=== PATIENT | female | born 1960 | race Caucasian/White ===

== ENCOUNTER 2019-10-04 08:20 | Emergency (ER) | payer BC, SELFPAY ==
[2019-10-04 08:21] VITALS: BP 155/91; PULSE 90; RESP 20; TEMP 36.6; O2SAT 98; BMI 24.3
--- NOTE | 2019-10-04 08:31 | CT_ITS ---
STUDY: CT ABDOMEN AND PELVIS WITHOUT CONTRAST REASON FOR EXAM: Female, 59 years old. Right-sided abdominal pain. RADIATION DOSAGE (If Supplied By Facility): CTDIvol = ( 7.58 ) mGy, DLP = ( 340.65 ) mGycm TECHNIQUE: Transaxial images were obtained from the dome of the diaphragm to the symphysis pubis without oral contrast, and without intravenous contrast. Sagittal and coronal images were reconstructed. Individualized dose optimization techniques were used for this CT. COMPARISON: None. FINDINGS: The visualized lung bases are unremarkable. The visualized portions of the heart are within normal limits. Normal liver. Normal gallbladder and extrahepatic biliary system. Normal spleen. Normal pancreas. Normal bilateral adrenal glands. There is a 1.6 cm 1.4 cm cyst in the superior anterior aspect of the right kidney. A 3 mm nonobstructive calculus is seen in the mid pole calyx. There is enlargement of the left kidney with left perinephric stranding. Mild degree of left hydronephrosis. Punctate nonobstructive calculus in the midpole calyx of the left kidney. I suspect a 3 mm calculus at the left ureterovesical junction entering the urinary bladder. Normal visualized stomach. Normal small intestine. Normal colon. The appendix is visualized and appears normal. There is diffuse atherosclerotic calcification of the abdominal aorta, without a demonstrated aneurysm. Normal inferior vena cava. There is borderline retroperitoneal lymphadenopathy with enlarged nodes no greater than 10mm in the short axis diameter. Normal urinary bladder. Calcified fibroid uterus. Normal abdominal wall. Disc space narrowing and disc degeneration at the L5-S1 level with anterior spondylosis. CT/Abdomen/Pelvis without Cont IMPRESSION: 3 mm calculus at the left ureterovesical junction as it enters the urinary bladder causing left hydronephrosis with left perinephric and periureteric stranding. Electronically Signed: Etienne Julio, at 9:34 EST , Service support ,
[2019-10-04 08:37] LABS: Mucous, Urine 0 SEEN /hpf (<or=2+)
--- NOTE | 2019-10-04 08:40 | ED.VIS.GEN ---
History of Present Illness Chief Complaint: Abd Pain Informant: Patient Onset: Today Context: Sudden Onset Timing: Continuous, Waxes and wanes Quality: Colicky left flank pain radiating anteriorly Location: Left flank Current Severity: Moderate Maximum Severity: Severe Worsened by: Nothing Relieved by: Nothing Associated Symptoms: Nausea and vomiting Narrative: Patient is a middle-aged woman with no significant past medical history who presents because she was awakened from sleep at 0200 with acute left flank pain. She states the pain radiates anteriorly. This is associate with nausea and vomiting. She cannot find a position of comfort. She has no other complaints. She denies fever, chills or night sweats. She denies cardiac or respiratory symptoms. She denies dysuria, frequency or hematuria. She does report urgency. She denies history of renal ureterolithiasis. She denies history of prior abdominal surgery. Prior similar symptoms: No Recent Illness/Hospitalization: No - Past Medical History (1) No significant past medical history Status: Acute Past Medical History - Allergies and Home Meds Allergies/Adverse Reactions: Allergies No Known Allergies Allergy (Verified 10/04/19 08:23) Primary Care Physician: Charanjit Matson DO [Primary Care Provider] - Prior records reviewed: No Past Medical History: None Surgical History: no surgical history Lives: Alone Smoking Status: Former smoker Alcohol: None Drugs: None Review of Systems General: Denies: Chills, Fever, Sweats Eyes: Denies: Visual changes - bilaterally, Diplopia ENT: Denies: Rhinorrhea, Sore throat Cardiovascular: Denies: Chest pain, Palpitations Respiratory: Denies: Dyspnea, Cough, Dyspnea on exertion Gastrointestinal: Reports: Abdominal pain, Nausea, Vomiting. Denies: Diarrhea, Constipation, Melena, Hematochezia, -, - Genitourinary: Denies: Dysuria, Hematuria, Frequency Musculoskeletal: Denies: Back pain, Extremity Pain Skin: Denies: Rash, Wounds Neurological: Denies: Headache, Weakness, Numbness Hematologic: Denies: Easy bruising, Easy bleeding Allergy: Denies: Uticaria, Swelling of the mouth, Swelling of the tongue Physical Exam Vital Signs/Narrative: Vital Signs Temp Pulse Resp BP Pulse Ox 10/04/19 08:21 98 F 90 20 H 155/91 H 98 Inital Vital Signs reviewed: Yes General: Well nourished, Well developed, Acute Distress Head: Normocephalic, Atraumatic Eyes: Perrl, EOMI. Negative for: Pale conjunctiva, Scleral icterus ENT: Moist mucous membranes, No rhinorrhea Neck: Supple, Nontender, No lymphadenopathy, No JVD Cardiovascular: Regular rate, Regular rhythm, No murmurs, Normal S1, Normal S2 Respiratory: No distress, CTA bilaterally, Chest nontender Abdomen: Soft, Nontender, Nondistended, Normal bowel sounds, No masses Back: Nontender, Normal Inspection, CVA tenderness - Left CVA tenderness Extremities: Nontender, No edema Skin: Normal color, No rash, No Trauma. Negative for: Cyanosis, Diaphoresis, Jaundice Neurological: Alert, Oriented x3, Cranial nerves II-XII grossly intact, Normal Strength, Normal Sensation Psychological: Normal affect, Normal Mood Diagnostic/Tx/Re-eval Impressions Abdomen/Pelvis CT 10/04/19 08:31 IMPRESSION: 3 mm calculus at the left ureterovesical junction as it enters the urinary bladder causing left hydronephrosis with left perinephric and periureteric stranding. Electronically Signed: Etienne Julio, at 9:34 EST , Service support , 10/04/19 08:31 Abdomen/Pelvis without Cont [CT] Stat Laboratory Results 10/04/19 10/04/19 10/04/19 08:30 08:50 08:50 WBC 11.9 H RBC 4.53 Hgb 14.3 Hct 42.2 MCV 93.2 MCH 31.6 MCHC 33.9 RDW Std Deviation 41.1 RDW Coeff of Connie 11.9 Plt Count 219 MPV 9.7 Immature Gran % (Auto) 0.700 Neut % (Auto) 83.0 H Lymph % (Auto) 11.2 L [place] % (Auto) 4.6 Eos % (Auto) 0.1 Baso % (Auto) 0.4 Absolute Neuts (auto) 9.9 H Absolute Lymphs (auto) 1.33 Nucleated RBC % 0 Sodium 140 Potassium 4.0 Chloride 108 H Carbon Dioxide 24.0 Anion Gap 8 BUN 29 H Creatinine 1.05 H Estim Creat Clear Calc 49.82 Est GFR (MDRD) Af Amer 69 Est GFR (MDRD) Non-Af 57 L BUN/Creatinine Ratio 27.6 H Glucose 147 H Calcium 9.4 Urine Color Yellow Urine Clarity Clear Urine pH 5.0 Ur Specific [place] 1.020 Urine Protein Negative Urine Glucose (UA) Normal Urine Ketones Negative Urine Occult Blood 25 H Urine Nitrite Negative Urine Bilirubin Negative Urine Urobilinogen Normal Ur Leukocyte Esterase 100 H Urine RBC 0-5 SEEN Urine WBC 0-5 SEEN Ur Squamous Epith Cells 0-5 SEEN Urine Bacteria RARE Urine Mucus 0 SEEN Laboratory results indicate an elevated white count which is probably a stress response to pain. There is no evidence of urinary tract infection. Electrolytes are unremarkable. CT reveals evidence of hydroureter and hydronephrosis secondary to a 3 mm left UVJ stone. - Medical Decision Making Abrupt onset of left flank pain rating anteriorly with nausea and vomiting and inability to find position of comfort concern patient has an obstructing ureteral stone. CT of the abdomen pelvis without contrast was ordered to determine size and location of calculus. IV was established at 250 cc/h. She received 4 mg of Zofran and 50 mg of Toradol for her nausea and pain. Basic metabolic panel was obtained to assess renal function. CBC to assess white count. UA to determine if there is evidence of infection which would alter disposition. ED Disposition - Plan for ED Patient: Disposition: Home or Assisted Living Diagnosis: Hydronephrosis with urinary obstruction due to ureteral calculus Instructions: KIDNEY STONE w/ Colic Prescriptions: Naproxen [Naprosyn] 500 mg PO BID #14 tab Prescription Printed Oxycodone HCl/Acetaminophen [Percocet 5/325] 1 tab PO Q6H PRN PRN 3 Days #12 tab PRN Reason: Pain Prescription Printed Referrals: Charanjit Matson DO [Primary Care Provider] - Lionel Knowles MD [STAFF PHYSICIAN] - 5-7 Days
[2019-10-04 08:42] LABS: Color, Urine Yellow (Yellow); Glucose, Dipstick Normal (Normal); Ketone-Dipstick Negative (Negative); Leukocyte Esterase-Dipstick 100 /ul (Negative); Nitrite-Dipstick Negative (Negative); Occult Blood-Urine 25 /ul (Negative); Protein-Dipstick Negative (Negative); Urine Bilirubin Dipstick Negative (Negative); Urine Clarity Clear (Clear); Urine Urobilinogen Normal (Normal)
[2019-10-04 08:48] LABS: Bacteria RARE /hpf (None Seen); Red Blood Cells-Urine 0-5 SEEN /hpf (0-5); Squamous Epithelial Cells - UA 0-5 SEEN /hpf (5-10); White Blood Cells 0-5 SEEN /hpf (0-5)
[2019-10-04] MEDS: 0.9% Normal Saline 1,000 ML 250 ML IV (08:48)
[2019-10-04] MEDS: Ketorolac 30 MG/ML Syringe 15 MG IV (08:48)
[2019-10-04] MEDS: Ondansetron 4 MG/2 ML Vial IV ×2 (08:49→10:06)
[2019-10-04 08:59] LABS: Absolute Lymphocyte Count 1.33 X10^3/uL (0.83-4.51); Absolute Neutrophil Count 9.9 X10^3/uL (2.0-7.7); Basophil# 0.05 X10^3/uL; Basophil% 0.4 % (0-1); Eosinophil# 0.01 X10^3/uL; Eosinophils% 0.1 % (0-5); Hematocrit 42.2 % (37-47); Hemoglobin 14.3 g/dL (12.0-15.0); Lymphocyte # 1.33 X10^3/ul (4.0); Lymphocyte % 11.2 % (19-41); Mean Corp Hgb Conc 33.9 g/dL (32-36); Mean Corpuscular Hgb 31.6 pg (27.0-32.0); Mean Corpuscular Volume 93.2 fL (81-99); Mean Platelet Vol. 9.7 fl (6.2-12.0); Monocyte# 0.55 X10^3/uL; Monocyte% 4.6 % (0-10); NRBC Flagged by Analyzer 0 % (0-5); Neutrophil # 9.88 X10^3/uL (2.7-7.7); Platelet Count 219 K/mm3 (150-450); RBC Distribution Width CV 11.9 % (11.6-14.6); RBC Distribution Width SD 41.1 fl (35.1-43.9); Red Blood Count 4.53 M/mm3 (4.2-5.4); White Blood Count 11.9 K/mm3 (4.4-11.0)
[2019-10-04 09:12] LABS: Anion Gap 8 (5-15); BUN 29 mg/dL (7-18); BUN/Creat Ratio 27.6 RATIO (10-20); Calcium,Total 9.4 mg/dL (8.5-10.1); Chloride 108 mmol/L (98-107); Creatinine, Serum 1.05 mg/dL (0.55-1.02); EST Glomerular Filtration Rate 57 mL/min (>60); Est Glom Filt Rate - Afr Amer 69 mL/min (>60); Estimated Creatinine Clearance 49.82 ml/min; Glucose 147 mg/dL (74-106); Sodium Level 140 mmol/L (136-145)
[2019-10-04 10:12] VITALS: BP 147/83; PULSE 67; RESP 14; O2SAT 97
== END 2019-10-04 10:14 | disposition home or self-care (01) ==
PROVIDERS: Emergency Provider Emergency Medicine; Family Provider Student in an Organized Health Care Education/Training Program; PCP Student in an Organized Health Care Education/Training Program
DX: N13.2 Hydronephrosis with renal and ureteral calculous obstruction (principal); Z87.891 Personal history of nicotine dependence
CPT/HCPCS: 74176; 80048; 81001; 85025; 96361; 96374; 96375; 96376; 99283; J7030; J2405

== ENCOUNTER → 2024-01-28 | Outpatient (CLI) | payer BC, SELFPAY ==
[2024-01-28 11:42] LABS: Mucous, Urine 0 SEEN /hpf (<or=2+)
[2024-01-28 16:15] LABS: Color, Urine Yellow (Yellow); Glucose, Dipstick Normal (Normal); Ketone-Dipstick 5 mg/dl (Negative); Leukocyte Esterase-Dipstick 25 /ul (Negative); Nitrite-Dipstick Negative (Negative); Occult Blood-Urine 25 /ul (Negative); Protein-Dipstick Negative (Negative); Specific Gravity, Urine 1.025 (1.002-1.030); Urine Bilirubin Dipstick Negative (Negative); Urine Clarity Clear (Clear); Urine Urobilinogen Normal (Normal)
[2024-01-28 16:25] LABS: ALB/GLOB Ratio 1.2 RATIO (0.9-2.4); AST(SGOT) 19 U/L (15-37); Alanine Aminotransfer ALT/SGPT 45 U/L (13-56); Alkaline Phosphatase 93 U/L (45-117); Anion Gap 4 (5-15); BUN 21 mg/dL (7-18); CPK Total, Creatine Kinase 74 U/L (26-192); Calcium,Total 8.9 mg/dL (8.5-10.1); Chloride 112 mmol/L (98-107); Creatinine, Serum 0.64 mg/dL (0.55-1.02); EST Glomerular Filtration Rate 100 mL/min (>60); Est Glom Filt Rate - Afr Amer 121 mL/min (>60); Globulin 3.2 g/dL (2.2-4.2); Glucose 98 mg/dL (74-106); Potassium 3.4 mmol/L (3.5-5.1); Protein, Total 7.2 g/dL (6.4-8.2); Sodium Level 141 mmol/L (136-145)
[2024-01-28 16:28] LABS: Bacteria RARE /hpf (None Seen); Red Blood Cells-Urine 0-5 SEEN /hpf (0-5)
[2024-01-28 16:29] LABS: Squamous Epithelial Cells - UA 0-5 SEEN /hpf (5-10); White Blood Cells 0-5 SEEN /hpf (0-5)
[2024-01-28 17:41] LABS: Absolute Lymphocyte Count 3.32 X10^3/uL (0.83-4.51); Absolute Neutrophil Count 3.5 X10^3/uL (2.0-7.7); Basophil# 0.03 X10^3/uL; Basophil% 0.4 % (0-1); Eosinophil# 0.07 X10^3/uL; Hematocrit 42.4 % (37-47); Hemoglobin 14.2 g/dL (12.0-15.0); Lymphocyte # 3.32 X10^3/ul (0.83-4.51); Lymphocyte % 45.5 % (19-41); Mean Corp Hgb Conc 33.5 g/dL (32-36); Mean Corpuscular Hgb 30.8 pg (27.0-32.0); Monocyte% 5.5 % (0-10); NRBC Flagged by Analyzer 0 % (0-5); Neutrophil # 3.45 X10^3/uL (2.7-7.7); Neutrophil % 47.3 % (47-70); Platelet Count 220 K/mm3 (150-450); RBC Distribution Width CV 12.9 % (11.6-14.6); RBC Distribution Width SD 43.4 fl (35.1-43.9); Red Blood Count 4.61 M/mm3 (4.2-5.4); White Blood Count 7.3 K/mm3 (4.4-11.0)
--- OUTSIDE RECORDS SUMMARY | 2024-01-28 18:52 | XMS RPT_ITS | CCD ---
Author Name Unknown Address [address] [place] [address] [id number] [place] [address] Organization [facility] Care Team Providers Care Instructor Dramatic Arts Name Role Phone Charanjit Fontenot DO Primary Care Provider [phone] CHARANJIT FONTENOT Primary Care Unavailable LETITIA KENNEDY Attending Unavailable CHARANJIT FONTENOT Primary Care Unavailable CHARANJIT FONTENOT Primary Care Unavailable CHARANJIT FONTENOT Primary Care Unavailable LETITIA KENNEDY Referring Unavailable CHARANJIT FONTENOT Primary Care Unavailable LETITIA KENNEDY Referring Unavailable CHARANJIT FONTENOT Referring Unavailable CHARANJIT FONTENOT Primary Care Unavailable CHARANJIT FONTENOT Primary Care Unavailable LETITIA KENNEDY Referring Unavailable Charanjit Fontenot DO Primary Care Provider [phone] Medications Completed/Discontinued Medications Medication Drug Class(es) Dates Sig (Normalized) Sig (Original) Biotin (12 sources) BIOTIN ORAL Take by mouth. 0 Active Problems Active Problems Problem Classification Problem Date Documented Date Episodic/Chronic Disorders of lipid metabolism (13 sources) Hypercholesterolemia; Translations: [Pure hypercholesterolemia, unspecified] Onset: 05-10-2013 05-10-2013 Chronic Immunizations and screening for infectious disease (2 sources) Needs influenza immunization; Translations: [Encounter for immunization] Episodic Other screening for suspected conditions (not mental disorders or infectious disease) (19 sources) Patient encounter status; Translations: [Encounter for screening mammogram for malignant neoplasm of breast] Onset: 12-19-2022 Episodic Other skin disorders (2 sources) Eruption; Translations: [Rash and other nonspecific skin eruption] Episodic Spondylosis; intervertebral disc disorders; other back problems (12 sources) Degeneration of lumbosacral intervertebral disc; Translations: [Other intervertebral disc degeneration, lumbosacral region] Onset: 08-26-2019 08-26-2019 Chronic Past or Other Problems Problem Classification Problem Date Documented Date Episodic/Chronic Diabetes mellitus without complication (11 sources) Hyperglycemia; Translations: [Hyperglycemia, unspecified] Onset: 12-19-2022 Episodic Other non-traumatic joint disorders (7 sources) Shoulder pain; Translations: [Pain in left shoulder] Onset: 05-06-2013 05-06-2013 Episodic Other non-traumatic joint disorders (5 sources) Pain in left shoulder; Translations: [Pain in joint, shoulder region] Onset: 05-06-2013 05-06-2013 Episodic Other skin disorders (1 source) Rash and other nonspecific skin eruption; Translations: [Rash] Onset: 07-08-2023 Episodic Residual codes; unclassified (12 sources) Tobacco user; Translations: [Tobacco use] Onset: 05-06-2013 05-06-2013 Episodic Residual codes; unclassified (13 sources) Postmenopausal state; Translations: [Asymptomatic menopausal state] Onset: 07-13-2013 07-13-2013 Episodic Results Test Name Value Interpretation Reference Range Facil ity Vital Signs Date Time Vital Sign Value Performing Clinician Faci lity 01-22-2024 08:37-0500 Body height 165.1 cm Lee Ledesma MD Work Phone: [facility] 01-22-2024 08:37-0500 Body temperature 98.91 [degF] Lee Ledesma MD Work Phone: [facility] 01-22-2024 08:37-0500 Body weight 64.59 kg Lee Ledesma MD Work Phone: [facility] 01-22-2024 08:37-0500 Diastolic blood pressure 82 mm[Hg] Lee Ledesma MD Work Phone: [facility] 01-22-2024 08:37-0500 Heart rate 85 /min Lee Ledesma MD Work Phone: [facility] 01-22-2024 08:37-0500 SaO2% (BldA) [Mass fraction] 97 % Lee Ledesma MD Work Phone: [facility] 01-22-2024 08:37-0500 Systolic blood pressure 124 mm[Hg] Lee Ledesma MD Work Phone: [facility] 07-08-2023 12:59-0400 Body temperature 98.1 [degF] Letitia Brent ENVELOPE FOLDING MACHINE ADJUSTER.LOGISTICS LEAD Work Phone: [facility] 07-08-2023 12:59-0400 Body weight 62.23 kg Letitia Brent ENVELOPE FOLDING MACHINE ADJUSTER.LOGISTICS LEAD Work Phone: [facility] 07-08-2023 12:59-0400 Diastolic blood pressure 78 mm[Hg] Letitia Brent ENVELOPE FOLDING MACHINE ADJUSTER.LOGISTICS LEAD Work Phone: [facility] 07-08-2023 12:59-0400 Heart rate 64 /min Letitia Brent ENVELOPE FOLDING MACHINE ADJUSTER.LOGISTICS LEAD Work Phone: [facility] 07-08-2023 12:59-0400 Respiratory rate 16 /min Letitia Brent ENVELOPE FOLDING MACHINE ADJUSTER.LOGISTICS LEAD Work Phone: [facility] 07-08-2023 12:59-0400 SaO2% (BldA) [Mass fraction] 96 % Letitia Brent ENVELOPE FOLDING MACHINE ADJUSTER.LOGISTICS LEAD Work Phone: [facility] 07-08-2023 12:59-0400 Systolic blood pressure 122 mm[Hg] Letitia Brent ENVELOPE FOLDING MACHINE ADJUSTER.LOGISTICS LEAD Work Phone: [facility] 03-04-2023 09:44-0400 Body temperature 98.4 [degF] Christianne Callow ENVELOPE FOLDING MACHINE ADJUSTER.LOGISTICS LEAD Work Phone: [facility] 03-04-2023 09:44-0400 Body weight 62.87 kg Christianne Callow ENVELOPE FOLDING MACHINE ADJUSTER.LOGISTICS LEAD Work Phone: [facility] 03-04-2023 09:44-0400 Diastolic blood pressure 70 mm[Hg] Christianne Callow ENVELOPE FOLDING MACHINE ADJUSTER.LOGISTICS LEAD Work Phone: [facility] 03-04-2023 09:44-0400 Heart rate 70 /min Christianne Callow ENVELOPE FOLDING MACHINE ADJUSTER.LOGISTICS LEAD Work Phone: [facility] 03-04-2023 09:44-0400 Respiratory rate 21 /min Christianne Callow ENVELOPE FOLDING MACHINE ADJUSTER.LOGISTICS LEAD Work Phone: [facility] 03-04-2023 09:44-0400 SaO2% (BldA) [Mass fraction] 98 % Christianne Connors ENVELOPE FOLDING MACHINE ADJUSTER.LOGISTICS LEAD Work Phone: [facility] 03-04-2023 09:44-0400 Systolic blood pressure 98 mm[Hg] Christianne Connors ENVELOPE FOLDING MACHINE ADJUSTER.LOGISTICS LEAD Work Phone: [facility] 12-15-2022 14:36-0500 Body temperature 97 [degF] Charanjit Fontenot DO Work Phone: [facility] 12-15-2022 14:36-0500 Body weight 61.69 kg Charanjit Fontenot DO Work Phone: [facility] 12-15-2022 14:36-0500 Diastolic blood pressure 60 mm[Hg] Charanjit Fontenot DO Work Phone: [facility] 12-15-2022 14:36-0500 Heart rate 76 /min Charanjit Fontenot DO Work Phone: [facility] 12-15-2022 14:36-0500 Respiratory rate 16 /min Charanjit Fontenot DO Work Phone: [facility] 12-15-2022 14:36-0500 Systolic blood pressure 110 mm[Hg] Charanjit Fontenot DO Work Phone: [facility] Encounters Encounter Date Encounter Type Care Provider Facility Start: 01-22-2024 End: 01-22-2024 Patient encounter procedure Lee Ledesma MD Work Phone: General Surgery Procedures Date Procedure Procedure Detail Performing Clinician Start: 01-05-2024 Us breast uni real t augusto with image limited Letitia Kennedy APRN.LOGISTICS LEAD Work Phone: Start: 01-05-2024 Digital breast tomosynthesis unilateral Letitia Kennedy APRN.LOGISTICS LEAD Work Phone: Start: 12-18-2022 Lipid 1996 panel - S maritza or Plasma Us 1 Work Phone: Start: 12-15-2022 INFLUENZA VACCINE QUADRIVALENT 6 MO - 64 YRS IM Charanjit Fontenot DO Work Phone: Start: 05-01-2021 Mammography Charanjit najera DO Work Phone: Start: 12-14-2020 Colonoscopy Charanjit najera DO Work Phone: Start: 08-17-2018 Adult depression scr eening assessment Charanjit Fontenot DO Work Phone: Plan of Treatment Date Care Activity Detail Author Start: 12-18-2027 Lipid panel Lipid Screening [facility] Start: 12-18-2027 LIPID SCREEN LIPID SCREEN [facility] Start: 09-30-2026 Urine microalbumin profile [facility] Start: 12-18-2025 DIABETES SCREEN DIABETES SCREEN [facility] Start: 12-18-2025 Diabetes Screening Diabetes Screening [facility] Start: 12-14-2025 Colonoscopy COLONOSCOPY [facility] Start: 12-14-2025 COLORECTAL CANCER SCREENING COLORECTAL CANCER SCREENING [facility] Start: 12-14-2025 Screening for malignant neoplasm of colon [facility] Start: 12-08-2024 Screening for malignant neoplasm of breast Mammogram Screening [facility] Start: 08-27-2024 LIPID SCREEN LIPID SCREEN [facility] Start: 07-24-2024 End: 02-22-2025 MG Breast - right Diagnostic for implant [facility] RIGHT Radiology Routine Abnormal finding on breast imaging Expected: 07/24/2024, Expires: 02/22/2025 [facility] Work Phone: Immunizations Immunization Date Immunization Notes Care Provider Cari eldridge 03-02-2023 zoster vaccine recombinant Mi Nurse Work Phone: [facility] Work Phone: 12-15-2022 pneumococcal Conjuga te, unspecified formulation Charanjit Fontenot [employer] Work Phone: [facility] Work Phone: 12-15-2022 influenza, injectabl e, quadrivalent, contains preservative Charanjit Fontenot [employer] Work Phone: [facility] Work Phone: 12-15-2022 pneumococcal (PCV20) vaccine, 20 valent (PREVNAR 20) Charanjit Fontenot DO Work Phone: [facility] Work Phone: 12-15-2022 zoster vaccine recombinant Charanjit Fontenot DO Work Phone: [facility] Work Phone: 12-15-2022 influenza virus vaccine, unspecified formulation 1 Work Phone: [facility] 08-26-2019 influenza, injectabl e, quadrivalent, contains preservative Charanjit Fontenot DO Work Phone: [facility] 08-17-2018 influenza, injectabl e, quadrivalent, contains preservative Charanjit Fontenot DO Work Phone: [facility] 09-30-2016 tetanus toxoid, redu david diphtheria toxoid, and acellular pertussis vaccine, adsorbed Charanjit Fontenot DO Work Phone: [facility] Payers Date Payer Category Payer Unknown [employer] PPO OOS [id number] 2021-Present [phone] [address] [place] [id number] PPO [id number] 2021 Unknown [employer] PPO OOS [id number] 2021-Present [phone] [address] [place] [address] PPO [id number] 2021 Unknown [id number] Social History Date Type Detail Facility Start: 01-14-2016 End: 12-15-2022 Tobacco smoking status NHIS Smokes tobacco daily [facility] Work Phone: End: 2014 History of tobacco use Cigarette Smoker [facility] Work Phone: Start: 01-14-2016 End: 07-08-2023 Cigarettes smoked current (pack per day) - Reported 1 [facility] Start: 01-14-2016 End: 12-15-2022 Tobacco use and exposure Smokeless tobacco non-user [facility] Work Phone: Start: 12-14-2020 End: 01-22-2024 Alcohol intake Current drinker of alcohol (finding) [facility] Start: 09-07-2019 End: 12-15-2022 Tobacco Comment -4 years for quit so 38 pack years [facility] Start: 1960 Sex Assigned At Female [facility] Start: 12-11-2022 History SDOH Alcohol Frequency 1 [facility] Start: 12-11-2022 History SDOH Alcohol Std Drinks 0 [facility] Start: 12-11-2022 History SDOH Social Connections Phone 2 [facility] Start: 12-11-2022 History SDOH Social Connections Get Together 98 [facility] Start: 12-11-2022 History SDOH Social Connections Living 5 [facility] Start: 12-11-2022 History SDOH Physical Activity MPS 3 [facility] Start: 12-11-2022 End: 07-08-2023 Social connection and isolation panel [facility] How often do you get together with friends or relatives? Patient refused [facility] Do you belong to any clubs or organizations such as tenriism groups, unions, fraternal or athletic groups, or school groups? Yes [facility] Are you now , , , , never or living with a partner? [facility] How often to you hav e a drink containing alcohol? Never [facility] Do you feel stress - tense, restless, nervous, or anxious, or unable to sleep at night because your mind is troubled all the time - these days [OSQ] Only a little [facility] The food that (I/we) bought just didn't last, and (I/we) didn't have money to get more. Never true [facility] In the past 12 month s, was there a time when you were not able to pay the mortgage or rent on time? No [facility] Start: 08-30-2019 Gender identity Identifies as female gender (finding) [facility] Start: 08-26-2019 Sexual orientation Heterosexual (finding) [facility] Work Phone: Clinical Notes 12-15-2022 to 01-24-2024 Lee Ledesma MD - 01/24/2024 6:34 AM Abbie Mora LPN - 01/22/2024 8:37 AM Anamika Mane RDMS - 01/05/2024 2:30 PM Neha Noonan, Mammo Tech - 01/05/2024 2:00 PM EST Note Date & Type Note Facility 01-24-2024 History of Present illness Narrative HISTORY AND PHYSICAL - BREAST COMPLAINT Polo Ricciderick 1960 REFERRING PHYSICIAN: Letitia Kennedy CHIEF COMPLAINT: abnormal right breast imaging HPI: The patient is a 64 year old female with a complaint of an abnormal mammogram. The patient had a mammogram screening mammogram on December 08, 2023 with a diagnostic right mammogram and ultrasound on January 05, 2024 which demonstrated : IMPRESSION: SUSPICIOUS FINDING - BIOPSY SHOULD BE CONSIDERED The 1 cm irregular equal density focal asymmetry in the right breast is suspicious of malignancy. An ultrasound guided biopsy is recommended. LIMITED ULTRASOUND OF RIGHT BREAST: 01/05/2024 RESULT: Comparison is made to exams dated: 12/08/2023 mammogram and 05/01/2021 mammogram - [facility]. Color flow and real-time ultrasound of the right breast 10 o'clock region were performed. Malone scale images of the real-time examination were reviewed. There is a 1.1 cm x 0.6 cm x 1 cm oval mass with a circumscribed margin in the right breast at 10 o'clock posterior depth. This oval mass is hypoechoic. This correlates with mammography findings. IMPRESSION: SUSPICIOUS FINDING - BIOPSY SHOULD BE CONSIDERED The 1.1 cm x 0.6 cm x 1 cm oval mass in the right breast resembles a lymph node and is suspicious of malignancy. An ultrasound guided biopsy is recommended. Mariah Hill M.D. The patient denies a history of breast masses. She does not perform a self breast exam routinely. She notes no skin changes. She denies nipple discharge. She notes no axillary masses. She notes no family history of breast problems. She notes no significant breast trauma or breast difficulties in the past. The patient questions why she needs a biopsy if this is a lymph node The patient is being seen by me today at the request of Letitia Kennedy for my opinion and advice regarding abnormal right breast imaging. PAST MEDICAL HISTORY Diagnosis Date Elevated LFTs 12/19/2022 Hearing loss bilateral hearing aids Hyperglycemia 12/19/2022 Hyperlipidemia 12/2015 Kidney stones Low grade squamous intraepithelial lesion (LGSIL) on Papanicolaou smear of cervix 06/2013 Post-menopausal age 43ish Spinal stenosis Tobacco abuse quit 01/19/14 PAST SURGICAL HISTORY Procedure Laterality Date COLONOSCOPY SCRN NOT HIGH RISK 12/14/2020 D&C (INCOMPLETE AB), ANY TRIMESTER 11/30/1981 miscarriage EGD 12/14/2020 LAPAROSCOPY DIAGNOSTIC 11/30/1984 LEEP PROCEDURE (PHOTOGRAPHIC EDITOR DEPT)_*FL 11/30/2012 Current Outpatient Medications Medication Sig Dispense Refill MULTIVITAMIN ORAL Take by mouth. BIOTIN ORAL Take by mouth. triamcinolone acetonide (KENALOG) 0.5 % cream Apply 1 application to affected area twice daily. For rash/itching. Apply sparingly. Avoid face/skin fold. 45 g 1 varenicline (CHANTIX) 0.5 mg (11)- 1 mg (42) tablet Take 1 tablet (0.5 mg) by mouth once daily for 3 days, then 1 tablet (0.5 mg) twice daily for 4 days, then one tablet (1 mg) twice daily. (Patient not taking: Reported on 11/19/2020) 53 tablet 0 No current facility-administered medications for this visit. ALLERGIES: Patient has no known allergies. PERSONAL HISTORY: Social History Tobacco Use Smoking status: Every Day Packs/day: 1.00 Years: 42.00 Additional pack years: 0.00 Total pack years: 42.00 Types: Cigarettes Last attempt to quit: 2014 Years since quittin.0 Smokeless tobacco: Never Tobacco comments: -4 years for quit so 38 pack years Substance Use Topics Alcohol use: Yes Alcohol/week: 0.0 - 1.3 standard drinks of alcohol Comment: occasionally Drug use: No FAMILY HISTORY: FAMILY HISTORY Problem Relation Age of Onset Hypertension Mother other (dementia) Mother other (MVA) Father Diabetes Brother Hypertension Sister Diabetes Sister Cancer Sister Diabetes Paternal Grandmother Breast Cancer Sister Hypertension Sister REVIEW OF SYMPTOMS: The review of systems data was entered by the nurse and reviewed by me Nursing Notes: Abbie Castelan LPN 01/22/2024 8:39 AM Signed REVIEW OF SYSTEMS: General: The patient denies fatigue, denies weight loss, denies weight gain, denies feeling hot, and denies feelings of cold. Eyes: The patient denies glaucoma, denies eye injury/surgery, wears glasses or contacts. Ear/Nose/Throat: The patient denies allergies, denies hayfever, denies ear infections, and denies bloody noses. Cardiovascular: The patient denies chest pain, denies heart disease, denies high blood pressure,denies cardiac stent, denies prior heart attack, denies irregular heart beat, denies high cholesterol, denies poor circulation, denies heart failure, other cardiac issues, denies claudication, denies cold feet, denies peripheral arterial stent. Respiratory: The patient denies tuberculosis, denies pneumonia, denies frequent cough, denies pulmonary embolism, denies shortness of breath, and denies coughing up blood. Gastrointestinal: The patient denies difficulty swallowing, denies acid reflux, NOTES ulcers, denies vomiting, denies jaundice/hepatitis, denies gallbladder problems, denies black or tarry stools, denies hemorrhoids, denies bleeding from rectum, denies diverticulitis, denies constipation, denies diarrhea, denies loss of stool control, and denies hernias. Kidney/Bladder: The patient NOTES kidney stones, denies urine infections, and denies bloody urine. Skin: The patient denies a history of skin cancer, denies bleeding/changing moles, and NOTES a history of skin rash. Neurologic: The patient denies a history of epilepsy/convulsions, denies headaches, denies head/spinal injuries, and denies stroke/TIA. Psychiatric: The patient denies psychiatric medications, denies depression, and denies voices, denies substance abuse. Endocrine: The patient denies thyroid disorders, denies diabetes, and denies hormonal problems. Hematologic: The patient denies a history of bruising, denies bleeding, and denies anemia, denies blood clots. Infections: The patient denies a history of measles and mumps, denies rheumatic fever, and denies sexually transmitted diseases. Musculoskeletal: The patient denies back pain/injury, denies back problems, denies sciatica, denies knee/foot trouble, denies arthritis, or denies gout. When was patient's last Mammogram screening? 2023 Last Colonoscopy: 2020 Abbie Castelan LPN PHYSICAL EXAMINATION: General: The patient is 64 year old female, well nourished, well hydrated in no acute distress. The patient is oriented to time, place, and person. VITALS: Blood pressure 124/82, pulse 85, temperature 37.2 C (98.9 F), height 165.1 cm (5' 5 ), weight 64.6 kg (142 lb 6.4 oz), SpO2 97%. Body mass index is 23.7 kg/m . HEENT: Normal cephalic, ataumatic, pupils are equally round, sclera are anicteric, mucous membranes are moist, oropharynx is clear. Neck has no masses, asymmetry or lymphadenopathy. Thyroid is unremarkable. Respiratory: Clear to auscultation and percussion. Normal respiratory excursion and pattern. Cardiac: Examination is regular rate and rhythm. Abdominal exam: Soft, nontender, with no palpable masses. No hepatosplenomegaly. No palpable hernias. Rectal exam: exam deferred Extremities: no clubbing, cyanosis or edema. No adenopathy. Breast: Visual inspection reveals no retractions, nipple inversion, or skin changes. Palpation of the right breast reveals no dominant or suspicious masses, but multiple benign-feeling nodules. Palpation of the left breast reveals no dominant or suspicious masses, but multiple benign-feeling nodules. Axillary exam demonstrates no suspicious masses in either the left or right axilla. There is no nipple discharge expressed from either the left or right breast. LABORATORY VALUES: As Noted RADIOLOGIC STUDIES: As Noted The site was identified. I agree that it appears to be a benign lymph node Assessment IMPRESSION: abnormal right breast imaging - likely lymph node PLAN: We discussed the possibilities of the origin of her abnormal mammogram. We discussed the fact that only biopsy can definitely exclude malignancy. We discussed that options ranged from observation, to fine needle aspiration performed in the office to surgical biopsy in the operative suite. I recommended 6 month follow up as she did not want biopsy and I agreed it was reasonable to watch the site. The patient was reminded about the importance of self-breast exam. She was instructed on how to perform a complete self-breast exam. The patient was instructed to return immediately if she notes any change in her breast mass or if she has any concerns or notes other problems. Diagnoses: (R92.8) Abnormal finding on breast imaging (primary encounter diagnosis) My findings have been communicated to Letitia Kennedy via shared medical record. This note will be forwarded to Charanjit Fontenot DO. Return to Clinic: The patient is instructed to follow-up with me in 6 months, you should obtain a mammogram and ultrasound prior to this follow up visit. Lee Ledesma MD documented in this encounter [facility] 01-22-2024 Nurse Note REVIEW OF SYSTEMS: General: The patient denies fatigue, denies weight loss, denies weight gain, denies feeling hot, and denies feelings of cold. Eyes: The patient denies glaucoma, denies eye injury/surgery, wears glasses or contacts. Ear/Nose/Throat: The patient denies allergies, denies hayfever, denies ear infections, and denies bloody noses. Cardiovascular: The patient denies chest pain, denies heart disease, denies high blood pressure,denies cardiac stent, denies prior heart attack, denies irregular heart beat, denies high cholesterol, denies poor circulation, denies heart failure, other cardiac issues, denies claudication, denies cold feet, denies peripheral arterial stent. Respiratory: The patient denies tuberculosis, denies pneumonia, denies frequent cough, denies pulmonary embolism, denies shortness of breath, and denies coughing up blood. Gastrointestinal: The patient denies difficulty swallowing, denies acid reflux, NOTES ulcers, denies vomiting, denies jaundice/hepatitis, denies gallbladder problems, denies black or tarry stools, denies hemorrhoids, denies bleeding from rectum, denies diverticulitis, denies constipation, denies diarrhea, denies loss of stool control, and denies hernias. Kidney/Bladder: The patient NOTES kidney stones, denies urine infections, and denies bloody urine. Skin: The patient denies a history of skin cancer, denies bleeding/changing moles, and NOTES a history of skin rash. Neurologic: The patient denies a history of epilepsy/convulsions, denies headaches, denies head/spinal injuries, and denies stroke/TIA. Psychiatric: The patient denies psychiatric medications, denies depression, and denies voices, denies substance abuse. Endocrine: The patient denies thyroid disorders, denies diabetes, and denies hormonal problems. Hematologic: The patient denies a history of bruising, denies bleeding, and denies anemia, denies blood clots. Infections: The patient denies a history of measles and mumps, denies rheumatic fever, and denies sexually transmitted diseases. Musculoskeletal: The patient denies back pain/injury, denies back problems, denies sciatica, denies knee/foot trouble, denies arthritis, or denies gout. When was patient's last Mammogram screening? 2023 Last Colonoscopy: 2020 Abbie Castelan LPN documented in this encounter [facility] 01-05-2024 Note HNO ID: [id number] Author: ANAMIKA SHAH RDMS Service: ? Author Type: Charger Type: Progress Notes Filed: 01/05/2024 16:25 Note Text: Radiology Service Progress Note PATIENT NAME: Polo Oquendo DATE OF SERVICE: January 05, 2024 TIME: 4:25 PM PATIENT IDENTITY VERIFICATION COMPLETED USING TWO (2) IDENTIFIERS: Name and Date of confirmed by patient verbally. FALL SCREENING: Has the patient had 2 falls in the last year or 1 fall with injury or currently using an Ambulatory Assistive Device (Walker, Cane, Wheelchair, Crutches, etc.)? No PATIENT GENDER DATA: Female. status: : No status: NO. PATIENT RELEVANT IMPLANT DATA REVIEWED: Not Applicable PATIENT PRESENTS WITH AN IMPLANTABLE OR ATTACHED ACCOUNTING GENERALIST: No RADIOLOGY DEPARTMENT: Ultrasound PERIPHERAL IV DATA: Not applicable SIGNED BY: Anamika Shah RDMS January 05, 2024 4:25 PM [facility] 01-05-2024 Note HNO ID: [id number] Author: NEHA FINNEGAN Mammo Tech Service: ? Author Type: Charger Type: Progress Notes Filed: 01/05/2024 14:00 Note Text: Radiology Service Progress Note PATIENT NAME: Polo Oquendo DATE OF SERVICE: January 05, 2024 TIME: 1:38 PM PATIENT IDENTITY VERIFICATION COMPLETED USING TWO (2) IDENTIFIERS: Name and Date of confirmed by patient verbally. FALL SCREENING: Has the patient had 2 falls in the last year or 1 fall with injury or currently using an Ambulatory Assistive Device (Walker, Cane, Wheelchair, Crutches, etc.)? No PATIENT GENDER DATA: Female. status: : No status: NO. PATIENT RELEVANT IMPLANT DATA REVIEWED: Not Applicable PATIENT PRESENTS WITH AN IMPLANTABLE OR ATTACHED ACCOUNTING GENERALIST: No RADIOLOGY DEPARTMENT: Mammography PERIPHERAL IV DATA: Not applicable SIGNED BY: Neha Finnegan [employer] January 05, 2024 1:38 PM [facility] 01-05-2024 History of Present illness Narrative Radiology Service Progress Note PATIENT NAME: Polo Oquendo DATE OF SERVICE: January 05, 2024 TIME: 4:25 PM PATIENT IDENTITY VERIFICATION COMPLETED USING TWO (2) IDENTIFIERS: Name and Date of confirmed by patient verbally. FALL SCREENING: Has the patient had 2 falls in the last year or 1 fall with injury or currently using an Ambulatory Assistive Device (Walker, Cane, Wheelchair, Crutches, etc.)? No PATIENT GENDER DATA: Female. status: : No status: NO. PATIENT RELEVANT IMPLANT DATA REVIEWED: Not Applicable PATIENT PRESENTS WITH AN IMPLANTABLE OR ATTACHED ACCOUNTING GENERALIST: No RADIOLOGY DEPARTMENT: Ultrasound PERIPHERAL IV DATA: Not applicable SIGNED BY: Anamika Shah RDMS January 05, 2024 4:25 PM documented in this encounter [facility] 01-05-2024 History of Present illness Narrative Radiology Service Progress Note PATIENT NAME: Polo Oquendo DATE OF SERVICE: January 05, 2024 TIME: 1:38 PM PATIENT IDENTITY VERIFICATION COMPLETED USING TWO (2) IDENTIFIERS: Name and Date of confirmed by patient verbally. FALL SCREENING: Has the patient had 2 falls in the last year or 1 fall with injury or currently using an Ambulatory Assistive Device (Walker, Cane, Wheelchair, Crutches, etc.)? No PATIENT GENDER DATA: Female. status: : No status: NO. PATIENT RELEVANT IMPLANT DATA REVIEWED: Not Applicable PATIENT PRESENTS WITH AN IMPLANTABLE OR ATTACHED ACCOUNTING GENERALIST: No RADIOLOGY DEPARTMENT: Mammography PERIPHERAL IV DATA: Not applicable SIGNED BY: Harper Tysono Selma January 05, 2024 1:38 PM documented in this encounter [facility] 12-08-2023 Note HNO ID: [id number] Author: SHELIA THOMAS RT(R) Service: ? Author Type: Technologist Type: Progress Notes Filed: 12/08/2023 14:28 Note Text: Radiology Service Progress Note PATIENT NAME: Polo Oquendo DATE OF SERVICE: December 08, 2023 TIME: 2:27 PM PATIENT IDENTITY VERIFICATION COMPLETED USING TWO (2) IDENTIFIERS: Name and Date of confirmed by patient verbally. FALL SCREENING: Has the patient had 2 falls in the last year or 1 fall with injury or currently using an Ambulatory Assistive Device (Walker, Cane, Wheelchair, Crutches, etc.)? No PATIENT GENDER DATA: Female. status: : No status: NO. PATIENT RELEVANT IMPLANT DATA REVIEWED: Not Applicable RADIOLOGY DEPARTMENT: Mammography PERIPHERAL IV DATA: Not applicable SIGNED BY: RT Koby(R) December 08, 2023 2:27 PM [facility] 07-08-2023 Note HNO ID: [id number] Author: Letitia Kennedy APRN.LOGISTICS LEAD Service: ? Author Type: Nurse Practitioner Type: Progress Notes Filed: 07/09/2023 8:43 AM Note Text: Chief Complaint Patient presents with: Rash: Lower back and shoulder blades x 7 months, seen in [facility] 4/5 HPI Polo Oquendo is a 63 year old female who presents here today for Above Complaints. Today: Has had rash to lower back that started about 7 months ago and has spread to upper back. Feels like pins poking and is intermittent, worse with being hot. Nothing has helped-cortisone cream, antifungal, Gold lopez, lotion. Requesting possible referral to dermatology. Past medical history, appointments, medications, allergies reviewed. Previous Medical History PAST MEDICAL HISTORY Diagnosis Date Elevated LFTs 12/19/2022 Hearing loss bilateral hearing aids Hyperglycemia 12/19/2022 Hyperlipidemia 12/2015 Kidney stones Low grade squamous intraepithelial lesion (LGSIL) on Papanicolaou smear of cervix 06/2013 Post-menopausal age 43ish Spinal stenosis Tobacco abuse quit 01/19/14 Previous Surgical History PAST SURGICAL HISTORY Procedure Laterality Date COLONOSCOPY SCRN NOT HIGH RISK 12/14/2020 DANDC (INCOMPLETE AB), ANY TRIMESTER 11/30/1981 miscarriage EGD 12/14/2020 LAPAROSCOPY DIAGNOSTIC 11/30/1984 LEEP PROCEDURE (PHOTOGRAPHIC EDITOR DEPT)_*[place] 11/30/2012 Family History FAMILY HISTORY Problem Relation Age of Onset Hypertension Mother other (dementia) Mother other (MVA) Father Diabetes Brother Hypertension Sister Diabetes Sister Cancer Sister Diabetes Paternal Grandmother Breast Cancer Sister Hypertension Sister Patient Allergies ALLERGIES No Known Allergies Current Medications Current Outpatient Medications on File Prior to Visit Medication Sig MULTIVITAMIN ORAL Take by mouth. BIOTIN ORAL Take by mouth. varenicline (CHANTIX) 0.5 mg (11)- 1 mg (42) tablet Take 1 tablet (0.5 mg) by mouth once daily for 3 days, then 1 tablet (0.5 mg) twice daily for 4 days, then one tablet (1 mg) twice daily. (Patient not taking: Reported on 11/19/2020) No current facility-administered medications on file prior to visit. Social History Social History Tobacco Use Smoking status: Every Day Packs/day: 1.00 Years: 42.00 Total pack years: 42.00 Types: Cigarettes Last attempt to quit: 2014 Years since quittin.4 Smokeless tobacco: Never Tobacco comments: -4 years for quit so 38 pack years Substance Use Topics Alcohol use: Yes Alcohol/week: 0.0 - 2.5 standard drinks of alcohol Comment: occasionally Drug use: No Review of Symptoms REVIEW OF SYSTEMS See HPI, otherwise negative EXAM: BP 122/78 (BP Site: Left Arm, BP Position: Sitting, BP Cuff Size: Regular Adult) Pulse 64 Temp 36.7 ?C (98.1 ?F) Resp 16 Wt 62.2 kg (137 lb 3.2 oz) SpO2 96% BMI 23.54 kg/m? General Appearance: Well appearing, alert, in no acute distress, well-hydrated, well nourished.. Skin: rash to majority of back; is red to purple macular, blanchable Lungs: Lungs clear to auscultation. No wheezing, rhonchi, rales.. Heart: RRR without murmur, gallop, or rubs. No ectopy. Health Maintenance List HIV SCREENING Never done LUNG CANCER SCREENING due on 09/07/2020 PAP TESTING due on 01/14/2021 HPV TESTING due on 01/14/2021 COVID-19 VACCINE(4 - Moderna series) due on 12/26/2021 MAMMOGRAM due on 05/01/2022 INFLUENZA(1) due on 07/31/2023 COLORECTAL CANCER SCREENING due on 12/14/2025 DIABETES SCREEN due on 12/18/2025 DTAP,TDAP,TD(2 - Td or Tdap) due on 09/30/2026 LIPID SCREEN due on 12/18/2027 DEPRESSION ASSESSMENT Completed HEPATITIS C SCREENING Completed SHINGRIX VACCINE Completed PNEUMOCOCCAL Completed Data reviewed Previous records, office notes ASSESSMENT/PLAN: 1. Rash - ICD9: 782.1, ICD10: R21 Consider possible autoimmune etiology. Autoimmune labs. Triamcinolone tid. Consult to derm. Follow up prn. - NEERAJ BLOOD - CCP ANTIBODY IGG - RHEUMATOID FACTOR BL - ANTI PAKO ID - URIC ACID BLOOD - TRIAMCINOLONE ACETONIDE 0.5 % TOPICAL CREAM - CONSULT TO DERMATOLOGY Letitia Kennedy APRN.RADHA [facility] 07-08-2023 History of Present illness Narrative Chief Complaint Patient presents with: Rash: Lower back and shoulder blades x 7 months, seen in 03/04 HPI Polo Oquendo is a 63 year old female who presents here today for Above Complaints. Today: Has had rash to lower back that started about 7 months ago and has spread to upper back. Feels like pins poking and is intermittent, worse with being hot. Nothing has helped-cortisone cream, antifungal, Gold lopez, lotion. Requesting possible referral to dermatology. Past medical history, appointments, medications, allergies reviewed. Previous Medical History PAST MEDICAL HISTORY Diagnosis Date Elevated LFTs 12/19/2022 Hearing loss bilateral hearing aids Hyperglycemia 12/19/2022 Hyperlipidemia 12/2015 Kidney stones Low grade squamous intraepithelial lesion (LGSIL) on Papanicolaou smear of cervix 06/2013 Post-menopausal age 43ish Spinal stenosis Tobacco abuse quit 01/19/14 Previous Surgical History PAST SURGICAL HISTORY Procedure Laterality Date COLONOSCOPY SCRN NOT HIGH RISK 12/14/2020 D&C (INCOMPLETE AB), ANY TRIMESTER 11/30/1981 miscarriage EGD 12/14/2020 LAPAROSCOPY DIAGNOSTIC 11/30/1984 LEEP PROCEDURE (PHOTOGRAPHIC EDITOR DEPT)_*[place] 11/30/2012 Family History FAMILY HISTORY Problem Relation Age of Onset Hypertension Mother other (dementia) Mother other (MVA) Father Diabetes Brother Hypertension Sister Diabetes Sister Cancer Sister Diabetes Paternal Grandmother Breast Cancer Sister Hypertension Sister Patient Allergies ALLERGIES No Known Allergies Current Medications Current Outpatient Medications on File Prior to Visit Medication Sig MULTIVITAMIN ORAL Take by mouth. BIOTIN ORAL Take by mouth. varenicline (CHANTIX) 0.5 mg (11)- 1 mg (42) tablet Take 1 tablet (0.5 mg) by mouth once daily for 3 days, then 1 tablet (0.5 mg) twice daily for 4 days, then one tablet (1 mg) twice daily. (Patient not taking: Reported on 11/19/2020) No current facility-administered medications on file prior to visit. Social History Social History Tobacco Use Smoking status: Every Day Packs/day: 1.00 Years: 42.00 Total pack years: 42.00 Types: Cigarettes Last attempt to quit: 2014 Years since quittin.4 Smokeless tobacco: Never Tobacco comments: -4 years for quit so 38 pack years Substance Use Topics Alcohol use: Yes Alcohol/week: 0.0 - 2.5 standard drinks of alcohol Comment: occasionally Drug use: No Review of Symptoms REVIEW OF SYSTEMS See HPI, otherwise negative EXAM: BP 122/78 (BP Site: Left Arm, BP Position: Sitting, BP Cuff Size: Regular Adult) Pulse 64 Temp 36.7 C (98.1 F) Resp 16 Wt 62.2 kg (137 lb 3.2 oz) SpO2 96% BMI 23.54 kg/m General Appearance: Well appearing, alert, in no acute distress, well-hydrated, well nourished.. Skin: rash to majority of back; is red to purple macular, blanchable Lungs: Lungs clear to auscultation. No wheezing, rhonchi, rales.. Heart: RRR without murmur, gallop, or rubs. No ectopy. Health Maintenance List HIV SCREENING Never done LUNG CANCER SCREENING due on 09/07/2020 PAP TESTING due on 01/14/2021 HPV TESTING due on 01/14/2021 COVID-19 VACCINE(4 - Moderna series) due on 12/26/2021 MAMMOGRAM due on 05/01/2022 INFLUENZA(1) due on 07/31/2023 COLORECTAL CANCER SCREENING due on 12/14/2025 DIABETES SCREEN due on 12/18/2025 DTAP,TDAP,TD(2 - Td or Tdap) due on 09/30/2026 LIPID SCREEN due on 12/18/2027 DEPRESSION ASSESSMENT Completed HEPATITIS C SCREENING Completed SHINGRIX VACCINE Completed PNEUMOCOCCAL Completed Data reviewed Previous records, office notes ASSESSMENT/PLAN: 1. Rash - ICD9: 782.1, ICD10: R21 Consider possible autoimmune etiology. Autoimmune labs. Triamcinolone tid. Consult to derm. Follow up prn. - NEERAJ BLOOD - CCP ANTIBODY IGG - RHEUMATOID FACTOR BL - ANTI PAKO ID - URIC ACID BLOOD - TRIAMCINOLONE ACETONIDE 0.5 % TOPICAL CREAM - CONSULT TO DERMATOLOGY Letitia Kennedy APRN.LOGISTICS LEAD documented in this encounter [facility] 06-03-2023 Note Patient Outreach (IN [facility]) POLO OQUENDO ([id number]) 1960 F Date Time Provider Department 06/03/23 CHARANJIT FONTENOT During your visit today, we recorded the following information about you: Allergies As of Date: 06/03/2023 (No Known Allergies) Date Reviewed: 03/04/2023 Reviewed by: Meera Rivera MA - Fully Assessed Visit Diagnosis:Encounter for screening mammogram for breast cancer [Z12.31] Order(s):CHICHO SCREENING [[id number]] Order #: [id number] FUTURE Prescriptions as of 06/08/2023 - MULTIVITAMIN ORAL Take by mouth. - BIOTIN ORAL Take by mouth. - varenicline (CHANTIX) 0.5 mg (11)- 1 mg (42) tablet Take 1 tablet (0.5 mg) by mouth once daily for 3 days, then 1 tablet (0.5 mg) twice daily for 4 days, then one tablet (1 mg) twice daily. Problem List As Of Date 06/03/2023 Noted Resolved Tobacco abuse [Z72.0] 05/06/2013 Left shoulder pain [M25.512] 05/06/2013 Hypercholesterolemia [E78.00] 05/10/2013 Post-menopausal [Z78.0] 07/13/2013 Degenerative disc disease at L5-S1 level [M51.3*08/26/2019 Well adult exam [Z00.00] 12/15/2022 Hyperglycemia [R73.9] 12/19/2022 Elevated LFTs [R79.89] 12/19/2022 Encounter Status:Closed by Months Of Me, PRODUSER on 06/08/23 [facility] 03-10-2023 Miscellaneous Notes Patient given results and verbalized understanding of instructions given. Yolis Morrow Please notify no fungal infection found on culture at 6 days. Will notify if becomes positive. documented in this encounter [facility] 03-04-2023 Note HNO ID: [id number] Author: Christianne Connors APRN.RADHA Service: ? Author Type: Nurse Practitioner Type: Progress Notes Filed: 03/04/2023 10:08 AM Note Text: Subjective HPI Kiley presents today with rash on back x thee week itchy, she feels well no other symptoms. She is using hydrocortisone cream but feels it is not improving maybe worsening. She states no new products, no new meds, no environmental changes. She thinks thought it was a heat rash but is frustrated its not improving. She otherwise feels great. PAST MEDICAL HISTORY Diagnosis Date Elevated LFTs 12/19/2022 Hearing loss bilateral hearing aids Hyperglycemia 12/19/2022 Hyperlipidemia 12/2015 Kidney stones Low grade squamous intraepithelial lesion (LGSIL) on Papanicolaou smear of cervix 06/2013 Post-menopausal age 43ish Spinal stenosis Tobacco abuse quit 01/19/14 PAST SURGICAL HISTORY Procedure Laterality Date COLONOSCOPY SCRN NOT HIGH RISK 12/14/2020 DANDC (INCOMPLETE AB), ANY TRIMESTER 11/30/1981 miscarriage EGD 12/14/2020 LAPAROSCOPY DIAGNOSTIC 11/30/1984 LEEP PROCEDURE (PHOTOGRAPHIC EDITOR DEPT)_*[place] 11/30/2012 ALLERGIES Patient has no known allergies. MEDICATIONS MULTIVITAMIN ORAL Take by mouth. BIOTIN ORAL Take by mouth. varenicline (CHANTIX) 0.5 mg (11)- 1 mg (42) tablet Take 1 tablet (0.5 mg) by mouth once daily for 3 days, then 1 tablet (0.5 mg) twice daily for 4 days, then one tablet (1 mg) twice daily. (Patient not taking: Reported on 11/19/2020 ) FAMILY HISTORY Problem Relation Age of Onset Hypertension Mother other (dementia) Mother other (MVA) Father Diabetes Brother Hypertension Sister Diabetes Sister Cancer Sister Diabetes Paternal Grandmother Breast Cancer Sister Hypertension Sister Social History Tobacco Use Smoking status: Every Day Packs/day: 1.00 Years: 42.00 Pack years: 42.00 Types: Cigarettes Last attempt to quit: 2014 Years since quittin.1 Smokeless tobacco: Never Tobacco comments: -4 years for quit so 38 pack years Substance Use Topics Alcohol use: Yes Alcohol/week: 0.0 - 2.5 standard drinks Comment: occasionally Drug use: No Review of Systems Skin: Positive for rash. All other systems reviewed and are negative. Objective Physical Exam Vitals reviewed. Constitutional: Appearance: Normal appearance. HENT: Head: Normocephalic and atraumatic. Nose: Nose normal. Mouth/Throat: Mouth: Mucous membranes are dry. Eyes: Extraocular Movements: Extraocular movements intact. Pupils: Pupils are equal, round, and reactive to light. Cardiovascular: Rate and Rhythm: Normal rate and regular rhythm. Pulses: Normal pulses. Heart sounds: Normal heart sounds. Pulmonary: Effort: Pulmonary effort is normal. Breath sounds: Normal breath sounds. Abdominal: General: Abdomen is flat. Palpations: Abdomen is soft. Genitourinary: General: Normal vulva. Musculoskeletal: General: Normal range of motion. Cervical back: Normal range of motion and neck supple. Skin: General: Skin is warm and dry. Findings: Rash (red raised scale rash noted with dark pigmentaion on mid back and a few small areas between shoulders, scratch nicole noted) present. Neurological: General: No focal deficit present. Mental Status: She is alert and oriented to person, place, and time. Psychiatric: Mood and Affect: Mood normal. ASSESSMENT/PLAN: 1. Rash - ICD9: 782.1, ICD10: R21 Fungle skin culture obtained skin cells obtained by scrapping dry skin area. - will await for culture results to adjust therapy she is using hydrocortisone cream she states it helps the itching Will consider referral to dermatology and treatment following results - FUNGAL CULTURE HAIR,SKIN,NAILS Christianne Connors APRN.[facility] 03-04-2023 History of Present illness Narrative Subjective HPI Kiley presents today with rash on back x thee week itchy, she feels well no other symptoms. She is using hydrocortisone cream but feels it is not improving maybe worsening. She states no new products, no new meds, no environmental changes. She thinks thought it was a heat rash but is frustrated its not improving. She otherwise feels great. PAST MEDICAL HISTORY Diagnosis Date Elevated LFTs 12/19/2022 Hearing loss bilateral hearing aids Hyperglycemia 12/19/2022 Hyperlipidemia 12/2015 Kidney stones Low grade squamous intraepithelial lesion (LGSIL) on Papanicolaou smear of cervix 06/2013 Post-menopausal age 43ish Spinal stenosis Tobacco abuse quit 01/19/14 PAST SURGICAL HISTORY Procedure Laterality Date COLONOSCOPY SCRN NOT HIGH RISK 12/14/2020 D&C (INCOMPLETE AB), ANY TRIMESTER 11/30/1981 miscarriage EGD 12/14/2020 LAPAROSCOPY DIAGNOSTIC 11/30/1984 LEEP PROCEDURE (PHOTOGRAPHIC EDITOR DEPT)_*[place] 11/30/2012 ALLERGIES Patient has no known allergies. MEDICATIONS MULTIVITAMIN ORAL Take by mouth. BIOTIN ORAL Take by mouth. varenicline (CHANTIX) 0.5 mg (11)- 1 mg (42) tablet Take 1 tablet (0.5 mg) by mouth once daily for 3 days, then 1 tablet (0.5 mg) twice daily for 4 days, then one tablet (1 mg) twice daily. (Patient not taking: Reported on 11/19/2020 ) FAMILY HISTORY Problem Relation Age of Onset Hypertension Mother other (dementia) Mother other (MVA) Father Diabetes Brother Hypertension Sister Diabetes Sister Cancer Sister Diabetes Paternal Grandmother Breast Cancer Sister Hypertension Sister Social History Tobacco Use Smoking status: Every Day Packs/day: 1.00 Years: 42.00 Pack years: 42.00 Types: Cigarettes Last attempt to quit: 2014 Years since quittin.1 Smokeless tobacco: Never Tobacco comments: -4 years for quit so 38 pack years Substance Use Topics Alcohol use: Yes Alcohol/week: 0.0 - 2.5 standard drinks Comment: occasionally Drug use: No Review of Systems Skin: Positive for rash. All other systems reviewed and are negative. Objective Physical Exam Vitals reviewed. Constitutional: Appearance: Normal appearance. HENT: Head: Normocephalic and atraumatic. Nose: Nose normal. Mouth/Throat: Mouth: Mucous membranes are dry. Eyes: Extraocular Movements: Extraocular movements intact. Pupils: Pupils are equal, round, and reactive to light. Cardiovascular: Rate and Rhythm: Normal rate and regular rhythm. Pulses: Normal pulses. Heart sounds: Normal heart sounds. Pulmonary: Effort: Pulmonary effort is normal. Breath sounds: Normal breath sounds. Abdominal: General: Abdomen is flat. Palpations: Abdomen is soft. Genitourinary: General: Normal vulva. Musculoskeletal: General: Normal range of motion. Cervical back: Normal range of motion and neck supple. Skin: General: Skin is warm and dry. Findings: Rash (red raised scale rash noted with dark pigmentaion on mid back and a few small areas between shoulders, scratch nicole noted) present. Neurological: General: No focal deficit present. Mental Status: She is alert and oriented to person, place, and time. Psychiatric: Mood and Affect: Mood normal. ASSESSMENT/PLAN: 1. Rash - ICD9: 782.1, ICD10: R21 Fungle skin culture obtained skin cells obtained by scrapping dry skin area. - will await for culture results to adjust therapy she is using hydrocortisone cream she states it helps the itching Will consider referral to dermatology and treatment following results - FUNGAL CULTURE HAIR,SKIN,NAILS Christianne Connors APRN.CNP documented in this encounter [facility] 03-02-2023 Note HNO ID: [id number] Author: Shanita Sahni LPN Service: ? Author Type: ? Type: Progress Notes Filed: 03/02/2023 1:49 PM Note Text: Patient presents for Shingrix vaccine. Denies any problems at this time. Tolerated injection well. Shanita Sahni LPN [facility] 03-02-2023 History of Present illness Narrative Patient presents for Shingrix vaccine. Denies any problems at this time. Tolerated injection well. Shanita Sahni LPN documented in this encounter [facility] 02-17-2023 Miscellaneous Notes Order placed Charanjit Fontenot DO Patient scheduled for nurse visit 03/02/23 to receive Shingrix vaccine. Please place order at this time. Shanita Sahni LPN documented in this encounter [facility] 12-19-2022 Miscellaneous Notes Patient notified via [employer]. Please inform patient that her recent lab results show mildly elevated glucose at 105 and her a1c is at 5.6% which is very close to prediabetes/impaired fasting glucose range. Would recommend cutting back on sugars and simple carbohydrates. Focus on eating low glycemic index fruits and vegetables more than high glycemic index fruits and vegetables. Her AST and ALT liver enzymes are also mildly elevated. If she drinks alcohol, would recommend cutting back to only 1-2 drinks 1-2 days a week only. Would also cut back on any fried/fast/fatty animal fat foods. Charanjit Fontenot DO documented in this encounter [facility] 12-15-2022 History of Present illness Narrative CC: Polo Oquendo is a 62 year old female who presents to the office for physical HPI: Overall doing well Still only taking vitamins and supplements regularly HPL, hasn't had recent labs, willing to have these checked. Needs to have her pap scheduled PAST MEDICAL HISTORY Diagnosis Date Hearing loss bilateral hearing aids Hyperlipidemia 12/2015 Kidney stones Low grade squamous intraepithelial lesion (LGSIL) on Papanicolaou smear of cervix 06/2013 Post-menopausal age 43ish Spinal stenosis Tobacco abuse quit 01/19/14 PAST SURGICAL HISTORY Procedure Laterality Date COLONOSCOPY SCRN NOT HIGH RISK 12/14/2020 D&C (INCOMPLETE AB), ANY TRIMESTER 11/30/1981 miscarriage EGD 12/14/2020 LAPAROSCOPY DIAGNOSTIC 11/30/1984 LEEP PROCEDURE (PHOTOGRAPHIC EDITOR DEPT)_*[place] 11/30/2012 Social History: Social History Tobacco Use Smoking status: Every Day Packs/day: 1.00 Years: 42.00 Pack years: 42.00 Types: Cigarettes Last attempt to quit: 2014 Years since quittin.9 Smokeless tobacco: Never Tobacco comments: -4 years for quit so 38 pack years Substance Use Topics Alcohol use: Yes Alcohol/week: 0.0 - 2.5 standard drinks Comment: occasionally Drug use: No FAMILY HISTORY Problem Relation Age of Onset Hypertension Mother other (dementia) Mother other (MVA) Father Diabetes Brother Hypertension Sister Diabetes Sister Cancer Sister Diabetes Paternal Grandmother Breast Cancer Sister Hypertension Sister Current Outpatient prescriptions: MULTIVITAMIN ORAL Take by mouth. BIOTIN ORAL Take by mouth. varenicline (CHANTIX) 0.5 mg (11)- 1 mg (42) tablet Take 1 tablet (0.5 mg) by mouth once daily for 3 days, then 1 tablet (0.5 mg) twice daily for 4 days, then one tablet (1 mg) twice daily. (Patient not taking: Reported on 11/19/2020 ) Allergies: ALLERGIES No Known Allergies ROS: see HPI PE: 12/15/22 1436 BP: 110/60 Pulse: 76 Resp: 16 Temp: 36.1 C (97 F) TempSrc: Right Tympanic Weight: 61.7 kg (136 lb) Gen: A&O, NAD, non-toxic appearing, Pleasant, cooperative HEENT: NT/AC, wearing glasses, PERRLA, EOMs intact b/l, nares clear and patent b/l, pharynx without erythema, exudate or lesions. MMM, Uvula midline. EACs without erythema or debris. TMs pearly bhagat with intact landmarks b/l. Neck: supple, No cervical LAD, no thyromegaly, no carotid bruits CV: RRR, normal S1 and S2, no murmurs, no gallops, no rubs, Pulses 2+ and symmetric in UE and LE b/l Lungs: normal respiratory effort, CTA b/l, no wheezing or rhonchi or rales Abd: soft, NT, ND, +BS, no hepatosplenomegaly MS: FROM all 4 extremities Neuro: CN II-XII intact b/l, strength 5/5 b/l UE and LE, DTRs 2/4 UE and LE, sensation intact. Skin: warm, dry, intact, No rashes or lesions on exposed skin. ASSESSMENT/PLAN: 1. Well adult exam - ICD9: V70.0, ICD10: Z00.00 (primary diagnosis) - Counseled on healthy diet and regular exercise - Calcium intake with supplements or by diet of 1000 mg/day for under 50, 1999-8551 mg/day for 50+ - check fasting labs as ordered, need for pap pelvic appointment - LIPID PANEL BASIC - COMP METABOLIC PANEL - CBC + DIFF - HGB A1C - VITAMIN B12 BLOOD - TSH BLD 2. Need for influenza vaccination - ICD9: V04.81, ICD10: Z23 - INFLUENZA VACCINE QUADRIVALENT 6 MO - 64 YRS IM 3. Need for shingles vaccine - ICD9: V04.89, ICD10: Z23 - ZOSTER VACC RECOMBINANT,IM 4. Hypercholesterolemia - ICD9: 272.0, ICD10: E78.00 Recheck labs fasting 5. Post-menopausal - ICD9: V49.81, ICD10: Z78.0 - check fasting labs as ordered, need for pap pelvic appointment Charanjit Fontenot DO To ER if develops chest pain, shortness of breath, or severe worsening of symptoms. Discussed risks, benefits, alternatives, and potential side effects of medications. Patient expressed understanding and agreed with the plan. Charanjit Fontenot DO [address] [place] [address] documented in this encounter [facility] 12-15-2022 Instructions Charanjit Fontenot DO - 12/15/2022 3:38 PM EST Take Tylenol 500 mg twice a day with meals for the next 3 days to help prevent any muscle aches or flu like feeling after Shingles vaccine documented in this encounter [facility] Diagnosis Well adult exam- Primary Routine general medical examination at a health care facility Need for influenza vaccination Need for prophylactic vaccination and inoculation against influenza Need for shingles vaccine Need for prophylactic vaccination and inoculation against other viral diseases Hypercholesterolemia Pure hypercholesterolemia Post-menopausal Asymptomatic postmenopausal status (age-related) (natural) [facility] Diagnosis Hyperglycemia- Primary Other abnormal glucose Elevated LFTs Other abnormal blood chemistry [facility] Diagnosis Encounter for immunization- Primary Need for other specified prophylactic vaccination against single bacterial disease [facility] Diagnosis Encounter for immunization- Primary Need for other specified prophylactic vaccination against single bacterial disease [facility] Diagnosis Rash- Primary Rash and other nonspecific skin eruption [facility] Diagnosis Rash- Primary Rash and other nonspecific skin eruption [facility] Diagnosis Abnormal mammogram Abnormal mammogram, unspecified [facility] Diagnosis Abnormal mammogram Abnormal mammogram, unspecified [facility] Diagnosis Abnormal finding on breast imaging- Primary Other (abnormal) findings on radiological examination of breast documented in this encounter [facility] for referral (narrative)* Diagnostic Procedure Only (Routine) - Pending Review Specialty Diagnoses / Procedures Referred By Link souza Referred To Contact [facility] Diagnoses Encounter for screening mammogram for breast cancer Procedures [facility] SCREENING SCREENING MAMMOGRAPHY BI 2-VIEW BREAST INC CAD Charanjit Fontenot DO [address] [place] [address] [facility] [address] [place] [address] Referral ID Status Reason Start Date Expiration Date Visits Requested Visits Authorized [id number] Pending Review Auto-Generat ed Referral 06/11/2022 07/11/2023 1 1 [facility] for referral (narrative)* Diagnostic Procedure Only (Routine) - Closed Specialty Diagnoses / Procedures Referred By Link souza Referred To Contact [facility] Diagnoses Abnormal mammogram Procedures US BREAST LTD RIGHT US BREAST UNI REAL TIME WITH IMAGE LIMITED Letitia Kennedy APRN.CNP [address] [place] [address] [facility] [address] [place] [address] Referral ID Status Reason Start Date Expiration Date V isits Requested Visits Authorized [id number] Closed Auto-Generate d Referral 12/09/2023 01/07/2025 1 1 [facility] for referral (narrative)* Diagnostic Procedure Only (Routine) - Pending Review Specialty Diagnoses / Procedures Referred By Link souza Referred To Contact [facility] Diagnoses Abnormal finding on breast imaging Procedures US BREAST LTD RIGHT US BREAST UNI REAL TIME WITH IMAGE LIMITED Lee Ledesma MD [address] [place] [address] [facility] [address] [place] [address] Referral ID Status Reason Start Date Expiration Date Visits Requested Visits Authorized [id number] Pending Review Auto-Generat ed Referral 07/24/2024 02/22/2025 1 1 * Diagnostic Procedure Only (Routine) - Pending Review Specialty Diagnoses / Procedures Referred By Link souza Referred To Contact [facility] Diagnoses Abnormal finding on breast imaging Procedures [facility]HO DIAGNOSTIC RIGHT DIAGNOSTIC MAMMOGRAPHY COMPUTER-AIDED DETCJ Lee Aguila MD [address] [address] [facility] [address] [place] [phone] Referral ID Status Reason Start Date Expiration Date Visits Requested Visits Authorized [id number] Pending Review Auto-Generat ed Referral 07/24/2024 02/22/2025 1 1 [facility] for visit Narrative* Diagnostic Procedure Only (Routine) - Closed Specialty Diagnoses / Procedures Referred By Link souza Referred To Contact [facility] Diagnoses Abnormal mammogram Procedures [facility] DIAGNOSTIC RIGHT DIAGNOSTIC MAMMOGRAPHY COMPUTER-AIDED DETCJ [facility] Letitia Kennedy APRN.LOGISTICS LEAD [address] [place] [address] [facility] [address] [place] [phone] Referral ID Status Reason Start Date Expiration Date V isits Requested Visits Authorized [id number] Closed Auto-Generate d Referral 12/09/2023 01/07/2025 1 1 [facility] Advance Directives Documents on File Type Date Recorded Patient Loan Officer Expl anation Advance Directive(s) 12/14/2020 9:30 AM Advance Directive(s) 12/04/2020 12:35 PM Reason for Referral Specialty Diagnoses / Procedures Referred By Link souza Referred To Contact Dermatology Diagnoses Rash Procedures CONSULT TO DERMATOLOGY Letitia Kennedy, DEENA.LOGISTICS LEAD [address] [place] [address] Referral ID Status Reason Start Date Expiration Date Visits Requested Visits Authorized [id number] Ref Not Required PCP Requested Referral 07/08/2023 07/07/2024 1 1 Summary Purpose Family History No Family History Records Found Additional Source Comments Source Comments (unrecognize d section and content) In the event this informatio n is protected by the Federal Confidentiality of Alcohol and Drug Abuse Patient Records regulations: The Federal rules restrict any use of the information to criminally investigate or prosecute any alcohol or drug abuse patient.[facility] the event this information is protected by the Federal Confidentiality of Alcohol and Drug Abuse Patient Records regulations: The Federal rules restrict any use of the information to criminally investigate or prosecute any alcohol or drug abuse patient.[facility] the event this information is protected by the Federal Confidentiality of Alcohol and Drug Abuse Patient Records regulations: The Federal rules restrict any use of the information to criminally investigate or prosecute any alcohol or drug abuse patient.[facility] the event this information is protected by the Federal Confidentiality of Alcohol and Drug Abuse Patient Records regulations: The Federal rules restrict any use of the information to criminally investigate or prosecute any alcohol or drug abuse patient.[facility] the event this information is protected by the Federal Confidentiality of Alcohol and Drug Abuse Patient Records regulations: The Federal rules restrict any use of the information to criminally investigate or prosecute any alcohol or drug abuse patient.[facility] the event this information is protected by the Federal Confidentiality of Alcohol and Drug Abuse Patient Records regulations: The Federal rules restrict any use of the information to criminally investigate or prosecute any alcohol or drug abuse patient.[facility] Center[facility] the event this information is protected by the Federal Confidentiality of Alcohol and Drug Abuse Patient Records regulations: The Federal rules restrict any use of the information to criminally investigate or prosecute any alcohol or drug abuse patient.[facility] the event this information is protected by the Federal Confidentiality of Alcohol and Drug Abuse Patient Records regulations: The Federal rules restrict any use of the information to criminally investigate or prosecute any alcohol or drug abuse patient.[facility] Center[facility] the event this information is protected by the Federal Confidentiality of Alcohol and Drug Abuse Patient Records regulations: The Federal rules restrict any use of the information to criminally investigate or prosecute any alcohol or drug abuse patient.[facility] Center[facility] the event this information is protected by the Federal Confidentiality of Alcohol and Drug Abuse Patient Records regulations: The Federal rules restrict any use of the information to criminally investigate or prosecute any alcohol or drug abuse patient.[facility] Center[facility] the event this information is protected by the Federal Confidentiality of Alcohol and Drug Abuse Patient Records regulations: The Federal rules restrict any use of the information to criminally investigate or prosecute any alcohol or drug abuse patient.[facility] Center[facility] the event this information is protected by the Federal Confidentiality of Alcohol and Drug Abuse Patient Records regulations: The Federal rules restrict any use of the information to criminally investigate or prosecute any alcohol or drug abuse patient.[facility] Care Teams (unrecognized sec tion and content) Instructor Dramatic Arts Relationship Specialty Start Date End Date Charanjit Fontenot, DO [address] [place] [address] PCP - General Family Medicine 05/09/13 Instructor Dramatic Arts Relationship Specialty Start Date End Date Charanjit Fontenot, DO [address] [place] [address] PCP - General Family Medicine 05/09/13 Instructor Dramatic Arts Relationship Specialty Start Date End Date Charanjit Fontenot, DO [address] [place] [address] PCP - General Family Medicine 05/09/13 Instructor Dramatic Arts Relationship Specialty Start Date End Date Chaarnjit Fontenot, DO [address] [place] [address] PCP - General Family Medicine 05/09/13 Instructor Dramatic Arts Relationship Specialty Start Date End Date Charanjit Fontenot DO [address] [place] [address] PCP - General Family Medicine 05/09/13 Instructor Dramatic Arts Relationship Specialty Start Date End Date Charanjit Fontenot DO [address] [place] [address] PCP - General Family Medicine 05/09/13 Instructor Dramatic Arts Relationship Specialty Start Date End Date Charanjit oFntenot DO [address] [place] [address] PCP - General Family Medicine 05/09/13 Instructor Dramatic Arts Relationship Specialty Start Date End Date Charanjit Fontenot DO [address] [place] [address] PCP - General Family Medicine 05/09/13 Instructor Dramatic Arts Relationship Specialty Start Date End Date Charanjit Fontenot DO [address] [place] [address] PCP - General Family Medicine 05/09/13 Reason for Visit (unrecogniz ed section and content) Reason Comments Results Reason Comments Orders Reason Comments Imm/Inj Reason Comments Rash On back, burning, it riccardo x 3 weeks Reason Comments Rash Lower back and shoul michelet blades x 7 months, seen in [facility] 4/5 Reason Comments Radiology US Specialty Diagnoses / Procedures Referred By Contac t Referred To Contact [facility] Diagnoses Abnormal mammogram Procedures US BREAST LTD RIGHT US BREAST UNI REAL TIME WITH IMAGE LIMITED Letitia Kennedy, EDENA.LOGISTICS LEAD [address] [place] [address] [facility] [address] [place] [address] Referral ID Status Reason Start Date Expiration Date V isits Requested Visits Authorized [id number] Closed Auto-Generate d Referral 12/09/2023 01/07/2025 1 1 Reason Comments Opened In Error Reason Comments Consult Right breast nodule/ abnormal mammo & US INFORMATION SOURCE (unrecogn ized section and content) FOR RECORDS PERTAINING TO PATIENTS WHO ARE OR HAVE BEEN ENROLLED IN A CHEMICAL DEPENDENCY/SUBSTANCEABUSE PROGRAM, SOME INFORMATION MAY BE OMITTED. This clinical summary was aggregated from multiple sources. Caution should be exercised in using it in the provision of clinical care. This summary normalizes information from multiple sources, and as a consequence, information in this document may materially change the coding, format and clinical context of patient data. In addition, data may be omitted in some cases. CLINICAL DECISIONS SHOULD BE BASED ON THE PRIMARY CLINICAL RECORDS. [employer] provides no warranty or guarantee of the accuracy or completeness of information in this document.
[2024-02-01 14:08] LABS: Anti-Nuclear Antibody Test Negative (.); Anti-dsDNA Ab <1 IU/mL (0-9)
[2024-02-01 15:08] LABS: Aldolase 5.3 U/L (3.3-10.3)
== END | disposition home or self-care (01) ==
PROVIDERS: PCP Student in an Organized Health Care Education/Training Program; Referring Provider Dermatology; Visit Provider Dermatology
DX: L30.9 Dermatitis, unspecified (principal); L72.0 Epidermal cyst
CPT/HCPCS: 36415; 80053; 81001; 82085; 82550; 85025; 86038; 86225

== ENCOUNTER → 2024-11-07 | Outpatient (CLI) | payer BC, SELFPAY ==
[2024-11-07 11:43] LABS: EXAGEN MAILED SPECIMEN
[2024-11-07 12:23] LABS: Color, Urine Yellow (Yellow); Glucose, Dipstick Normal (Normal); Ketone-Dipstick Negative (Negative); Leukocyte Esterase-Dipstick 100 /ul (Negative); Nitrite-Dipstick Negative (Negative); Occult Blood-Urine 10 /ul (Negative); Protein-Dipstick Negative (Negative); Specific Gravity, Urine 1.025 (1.002-1.030); Urine Bilirubin Dipstick Negative (Negative); Urine Clarity Clear (Clear); Urine Urobilinogen Normal (Normal)
[2024-11-07 12:24] LABS: Absolute Lymphocyte Count 3.32 X10^3/uL (0.83-4.51); Absolute Neutrophil Count 3.5 X10^3/uL (2.0-7.7); Basophil# 0.04 X10^3/uL; Basophil% 0.6 % (0-1); Eosinophil# 0.06 X10^3/uL; Eosinophils% 0.8 % (0-5); Hematocrit 43.2 % (37-47); Hemoglobin 14.7 g/dL (12.0-15.0); Lymphocyte # 3.32 X10^3/ul (0.83-4.51); Mean Corpuscular Hgb 31.3 pg (27.0-32.0); Mean Corpuscular Volume 92.1 fL (81-99); Mean Platelet Vol. 10.2 fl (6.2-12.0); Monocyte# 0.33 X10^3/uL; Monocyte% 4.6 % (0-10); NRBC Flagged by Analyzer 0 % (0-5); Neutrophil # 3.45 X10^3/uL (2.7-7.7); Neutrophil % 47.9 % (47-70); Platelet Count 203 K/mm3 (150-450); RBC Distribution Width CV 12.7 % (11.6-14.6); RBC Distribution Width SD 42.6 fl (35.1-43.9); Red Blood Count 4.69 M/mm3 (4.2-5.4); White Blood Count 7.2 K/mm3 (4.4-11.0)
[2024-11-07 12:28] LABS: Prothrombin Time (Protime)PT. 13.1 SECONDS (11.7-14.9)
[2024-11-07 12:30] LABS: Partial Thromboplast Time 22.9 Seconds (24.1-36.2)
[2024-11-07 12:39] LABS: ALB/GLOB Ratio 1.2 RATIO (0.9-2.4); AST(SGOT) 16 U/L (15-37); Alanine Aminotransfer ALT/SGPT 26 U/L (13-56); Alkaline Phosphatase 85 U/L (45-117); Anion Gap 6 (5-15); BUN 28 mg/dL (7-18); Calcium,Total 9.5 mg/dL (8.5-10.1); Chloride 107 mmol/L (98-107); Creatinine, Serum 0.72 mg/dL (0.55-1.02); EST Glomerular Filtration Rate 87 mL/min (>60); Est Glom Filt Rate - Afr Amer 105 mL/min (>60); Globulin 3.4 g/dL (2.2-4.2); Glucose 101 mg/dL (74-106); Potassium 3.9 mmol/L (3.5-5.1); Protein, Total 7.4 g/dL (6.4-8.2); Sodium Level 138 mmol/L (136-145)
[2024-11-07 12:50] LABS: Protein, Urine (Random) 17.5 mg/dL (<11.9); Protein:Creat Ratio 102 mg/g CRE (0-200)
[2024-11-09 16:06] LABS: Dilute Russell Viper Venom 37.5 sec (0.0-47.0); Hexagonal Phase Phospholipid 4 sec (0-11); Interpretation Comment: (.); PTT-LA 32.4 sec (0.0-43.5); Thrombin Time 19.4 sec (0.0-23.0); dPT Confirm Ratio 1.22 Ratio (0.00-1.34)
== END | disposition home or self-care (01) ==
PROVIDERS: PCP Student in an Organized Health Care Education/Training Program; Referring Provider Internal Medicine Rheumatology; Visit Provider Internal Medicine Rheumatology
DX: M06.4 Inflammatory polyarthropathy (principal); L93.1 Subacute cutaneous lupus erythematosus; M18.0 Bilateral primary osteoarthritis of first carpometacarpal joints
CPT/HCPCS: 36415; 80053; 81002; 82570; 84156; 85025; 85598; 85610; 85730

== ENCOUNTER → 2025-02-23 | Outpatient (CLI) | payer BC, SELFPAY ==
[2025-02-23 12:43] LABS: Absolute Lymphocyte Count 2.86 X10^3/uL (0.83-4.51); Absolute Neutrophil Count 3.6 X10^3/uL (2.0-7.7); Basophil# 0.04 X10^3/uL; Basophil% 0.6 % (0-1); Eosinophil# 0.06 X10^3/uL; Eosinophils% 0.9 % (0-5); Hematocrit 41.6 % (37-47); Hemoglobin 14.4 g/dL (12.0-15.0); Lymphocyte # 2.86 X10^3/ul (0.83-4.51); Lymphocyte % 40.7 % (19-41); Mean Corp Hgb Conc 34.6 g/dL (32-36); Mean Corpuscular Hgb 31.5 pg (27.0-32.0); Mean Platelet Vol. 10.4 fl (6.2-12.0); Monocyte# 0.43 X10^3/uL; Monocyte% 6.1 % (0-10); NRBC Flagged by Analyzer 0 % (0-5); Neutrophil # 3.63 X10^3/uL (2.7-7.7); Neutrophil % 51.6 % (47-70); Platelet Count 199 K/mm3 (150-450); RBC Distribution Width CV 12.4 % (11.6-14.6); RBC Distribution Width SD 41.2 fl (35.1-43.9); Red Blood Count 4.57 M/mm3 (4.2-5.4)
[2025-02-23 13:00] LABS: ALB/GLOB Ratio 1.1 RATIO (0.9-2.4); AST(SGOT) 21 U/L (<=31); Alanine Aminotransfer ALT/SGPT 20 U/L (<=34); Albumin, Serum 3.7 g/dL (3.4-4.8); Alkaline Phosphatase 75 U/L (35-104); Anion Gap 10 (5-15); BUN 22 mg/dL (4-19); BUN/Creat Ratio 29.1 RATIO (10-20); Calcium,Total 8.9 mg/dL (7.6-11.0); Carbon Dioxide 23.4 mmol/L (21.0-32.0); Chloride 105 mmol/L (98-108); Creatinine, Serum 0.76 mg/dL (0.70-1.20); EST Glomerular Filtration Rate 87 (>60); Globulin 3.4 g/dL (2.2-4.2); Glucose 89 mg/dL (70-99); Potassium 4.1 mmol/L (3.3-5.1); Protein, Total 7.1 g/dL (5.9-8.4); Sodium Level 138 mmol/L (133-145); Total Bilirubin 0.25 mg/dL (0.00-1.30)
== END | disposition home or self-care (01) ==
LOC: MTLAB 10:27
PROVIDERS: PCP Student in an Organized Health Care Education/Training Program; Referring Provider Internal Medicine Rheumatology; Visit Provider Internal Medicine Rheumatology
DX: M06.4 Inflammatory polyarthropathy (principal); L93.1 Subacute cutaneous lupus erythematosus; M18.0 Bilateral primary osteoarthritis of first carpometacarpal joints; Z79.899 Other long term (current) drug therapy
CPT/HCPCS: 36415; 80053; 85025

== ENCOUNTER → 2025-05-16 | Outpatient (CLI) | payer BC, SELFPAY ==
[2025-05-16 10:04] LABS: Absolute Lymphocyte Count 2.31 X10^3/uL (0.83-4.51); Absolute Neutrophil Count 4.7 X10^3/uL (2.0-7.7); Basophil# 0.05 X10^3/uL; Basophil% 0.7 % (0-1); Eosinophil# 0.09 X10^3/uL; Eosinophils% 1.2 % (0-5); Hematocrit 43.2 % (37-47); Hemoglobin 14.8 g/dL (12.0-15.0); Lymphocyte # 2.31 X10^3/ul (0.83-4.51); Lymphocyte % 30.3 % (19-41); Mean Corp Hgb Conc 34.3 g/dL (32-36); Mean Corpuscular Hgb 31.4 pg (27.0-32.0); Mean Corpuscular Volume 91.7 fL (81-99); Mean Platelet Vol. 10.3 fl (6.2-12.0); Monocyte# 0.47 X10^3/uL; Monocyte% 6.2 % (0-10); NRBC Flagged by Analyzer 0 % (0-5); Neutrophil % 61.5 % (47-70); Platelet Count 189 K/mm3 (150-450); RBC Distribution Width CV 12.8 % (11.6-14.6); RBC Distribution Width SD 42.8 fl (35.1-43.9); Red Blood Count 4.71 M/mm3 (4.2-5.4); White Blood Count 7.6 K/mm3 (4.4-11.0)
[2025-05-16 14:32] LABS: ALB/GLOB Ratio 1.7 RATIO (0.9-2.4); AST(SGOT) 21 U/L (<=31); Alanine Aminotransfer ALT/SGPT 19 U/L (<=34); Albumin, Serum 4.4 g/dL (3.4-4.8); Alkaline Phosphatase 76 U/L (35-104); Anion Gap 10 (5-15); BUN 16 mg/dL (4-19); BUN/Creat Ratio 21.4 RATIO (10-20); Calcium,Total 9.2 mg/dL (7.6-11.0); Carbon Dioxide 23.4 mmol/L (21.0-32.0); Chloride 106 mmol/L (98-108); Creatinine, Serum 0.74 mg/dL (0.70-1.20); EST Glomerular Filtration Rate 89 (>60); Globulin 2.6 g/dL (2.2-4.2); Glucose 108 mg/dL (70-99); Potassium 4.3 mmol/L (3.3-5.1); Sodium Level 140 mmol/L (133-145); Total Bilirubin 0.25 mg/dL (0.00-1.30)
== END | disposition home or self-care (01) ==
LOC: MTLAB 07:43
PROVIDERS: PCP Student in an Organized Health Care Education/Training Program; Referring Provider Internal Medicine Rheumatology; Visit Provider Internal Medicine Rheumatology
DX: M06.4 Inflammatory polyarthropathy (principal); Z79.899 Other long term (current) drug therapy
CPT/HCPCS: 36415; 80053; 85025

== ENCOUNTER → 2025-11-06 | Outpatient (CLI) | payer BC, SELFPAY ==
--- OUTSIDE RECORDS SUMMARY | 2025-11-06 07:16 | XMS RPT_ITS | CCD ---
Author Organization [facility] [employer] Care Team Providers Care Bulk Sausage Casing Tier Off Name Role Phone Charanjit Matson DO Primary Care Provider CHARANJIT MATSON Primary Care Unavailable TROY LEDESMA Attending Unavailable CHARANJIT MATSON Primary Care Unavailable ALDEN, LEIDA Referring Unavailable CHARANJIT MATSON L Primary Care Unavailable ALDEN, LEIDA Referring Unavailable MATSONCHARANJTI Referring Unavailable MATSONCHARANJIT Primary Care Unavailable ALDEN, LEIDA Referring Unavailable CHARANJIT MATSON L Primary Care Unavailable ALDEN, LEIDA Referring Unavailable MATSONCHARANJIT L Primary Care Unavailable ALDEN, LEIDA Attending Unavailable CHARANJIT MATSON L Primary Care Unavailable CHARANJIT MATSON Primary Care Unavailable TROY LEDESMA Referring Unavailable CHARANJIT MATSON Primary Care Unavailable TROY LEDESMA Referring Unavailable Charanjit Matson DO Primary Care Provider White DISTANCE LEARNING UNIT LEADER.PAINT DEPARTMENT SUPERVISOR, Nayeli Urszula Unavailable Alden DISTANCE LEARNING UNIT LEADER.PAINT DEPARTMENT SUPERVISOR, Leida Unavailable Dr. Charanjit Matson DO Primary Care Provider Memo SERRANO, Dr. Mederos Attending Provider Memo SERRANO, Dr. Mederos Referring Provider Dr. Charanjit Matson DO Primary Care Provider Dr. Rosa M Hampton MD Attending Provider Memo SERRANO, Dr. Mederos Referring Provider Rosa M Hampton Referring Unavailable Rosa M Hampton Attending Unavailable Charanjit Matson Primary Care Unavailable Rosa M Hampton Attending Unavailable Charanjit aMtson Primary Care Unavailable Rosa M Hampton Referring Unavailable Rosa M Hampton Attending Unavailable Charanjit Matson Primary Care Unavailable Rosa M Hampton Referring Unavailable Medications Current Medications Medication Drug Class(es) Dates Sig (Normalized) Sig (Original) Biotin (18 sources) BIOTIN ORAL Take by mouth. Active BIOTIN ORAL Take by mouth. 0 Active Comment on above: Take by mouth. clobetasol propionate 0.5 mg/ml topical cream (5 sources) Corticosteroid Start: 10-14-2024 End: 04-12-2025 clobetasol (TEMOVATE) 0.05 % cream Indications: Cutaneous lupus erythematosus Apply to affected area two times a day. 30 g 5 10/14/2024 04/12/2025 Active Start: 09-05-2024 End: 10-14-2024 clobetasol (TEMOVATE) 0.05 % cream apply to affected area OF BACK twice a day for 2 weeks then take ... (REFER TO PRESCRIPTION NOTES). 09/05/2024 10/14/2024 Discontinued lactobacillus combination no .4 (PROBIOTIC) 3 billion cell cap (4 sources) lactobacillus co mbination no.4 (PROBIOTIC) 3 billion cell cap Take by mouth. Takes gummy Active MULTIVITAMIN ORAL (18 sources) MULTIVITAMIN ORA L Take by mouth. Active MULTIVITAMIN ORA L Take by mouth. 0 Active Comment on above: Take by mouth. naproxen 500 mg oral tablet (3 sources) Nonsteroidal Anti-inflammatory Drug Start: 10-04-2019 take 1 tablet by mouth twice daily Naproxen 500 MG tablet Active 500 mg PO TWICE A DAY October 04, 2019 1:00am Completed/Discontinued Medications Medication Drug Class(es) Dates Sig (Normalized) Sig (Original) acetaminophen 325 mg / oxyCODONE hydrochloride 5 mg oral tablet (3 sources) Opioid Agonist Start: 10-04-2019 End: 10-09-2019 Oxycodone-Acetamino phen 1 TABLET tablet Discontinued 1 {tbl} PO EVERY 6 HOURS NEEDED as needed for Pain 12 October 04, 2019 October 06, 2019 1:00am October 09, 2019 1:10am Start: 10-04-2019 End: 10-09-2019 take 1 tablet by mouth every six hours as needed Oxycodone-Acetaminophen Discontinued 1 TABLET PO EVERY 6 HOURS NEEDED 12 October 04, 2019 October 09, 2019 12:10am triamcinolone acetonide 5 mg/ml topical cream (8 sources) Corticosteroid Start: 07-08-2023 End: 10-14-2024 triamcinolone acetonide (KENALOG) 0.5 % cream Indications: Rash Apply 1 application to affected area twice daily. For rash/itching. Apply sparingly. Avoid face/skin fold. 45 g 1 07/08/2023 10/14/2024 Discontinued Comment on above: Apply 1 application to affected area twice daily. For rash/itching. Apply sparingly. Avoid face/skin fold. varenicline 0.5 mg oral tablet (15 sources) Partial Cholinergic Nicotinic Agonist Start: 08-26-2019 End: 10-14-2024 take 1 tablet by mouth once daily, then take 1 tablet by mouth twice daily, then take 1 tablet by mouth twice daily varenicline (CHANTIX) 0.5 mg (11)- 1 mg (42) tablet Indications: Tobacco abuse Take 1 tablet (0.5 mg) by mouth once daily for 3 days, then 1 tablet (0.5 mg) twice daily for 4 days, then one tablet (1 mg) twice daily. 53 tablet 08/26/2019 10/14/2024 Discontinued Comment on above: Take 1 tablet (0.5 m g) by mouth once daily for 3 days, then 1 tablet (0.5 mg) twice daily for 4 days, then one tablet (1 mg) twice daily. Problems Active Problems Problem Classification Problem Date Documented Date Episodic/Chronic Disorders of lipid metabolism (20 sources) Hypercholesterolemia; Translations: [Pure hypercholesterolemia, unspecified] Onset: 05-10-2013 05-10-2013 Chronic Immunizations and screening for infectious disease (2 sources) Needs influenza immunization; Translations: [Encounter for immunization] Episodic Other diseases of kidney and ureters (3 sources) Hydronephrosis with renal and ureteral calculous obstruction; Translations: [Hydronephrosis with urinary obstruction due to ureteral calculus] 10-05-2019 Episodic Other inflammatory condition of skin (5 sources) Cutaneous lupus erythematosus; 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] Onset: 10-14-2024 10-14-2024 Chronic Other screening for suspected conditions (not mental disorders or infectious disease) (20 sources) Patient encounter status; Translations: [Encounter for screening mammogram for malignant neoplasm of breast] Onset: 12-19-2022 Episodic Other skin disorders (2 sources) Eruption; Translations: [Rash and other nonspecific skin eruption] Episodic Rheumatoid arthritis and related disease (1 source) Inflammatory polyarthropathy; Translations: [Inflammatory polyarthropathy] Onset: 05-22-2025 Chronic Spondylosis; intervertebral disc disorders; other back problems (18 sources) Degeneration of lumbosacral intervertebral disc; Translations: [Other intervertebral disc degeneration, lumbosacral region] Onset: 08-26-2019 08-26-2019 Chronic Unclassified (3 sources) No history of clinical finding in subject; Translations: [No significant past medical history] 10-04-2019 Past or Other Problems Problem Classification Problem Date Documented Date Episodic/Chronic Diabetes mellitus without complication (19 sources) Hyperglycemia; Translations: [Hyperglycemia, unspecified] Onset: 12-19-2022 Episodic Other non-traumatic joint disorders (7 sources) Shoulder pain; Translations: [Pain in left shoulder] Onset: 05-06-2013 05-06-2013 Episodic Other non-traumatic joint disorders (11 sources) Pain in left shoulder; Translations: [Pain in joint, shoulder region] Onset: 05-06-2013 05-06-2013 Episodic Residual codes; unclassified (18 sources) Tobacco user; Translations: [Tobacco use] Onset: 05-06-2013 05-06-2013 Episodic Residual codes; unclassified (19 sources) Postmenopausal state; Translations: [Asymptomatic menopausal state] Onset: 07-13-2013 07-13-2013 Episodic Results Test Name Value Interpretation Reference Range Facility Absolute lymphocyte countOrd ered By: Rosa M Hampton on 05-16-2025 Lymphocytes Auto (Unsp spec) [#/Vol] 2.31 10*3/uL 0.83-4.51 [facility] Absolute neutrophil countOrd ered By: Rosa M Hampton on 05-16-2025 Neutrophils (Bld) [#/Vol] 4.7 10*3/uL 2.0-7.7 [facility] Anion gap in Serum or Plasma Ordered By: oRsa M Hampton on 05-16-2025 Anion gap [Moles/Vol] 10 mmol/L 5-15 [facility] Automated lymphocyte count a s percentage of total leukocytesOrdered By: Rosa M Hampton on 05-16-2025 Lymphocytes/100 WBC Auto (Unsp spec) 30.3 % 19-41 [facility] BUN/creatinine ratioOrdered By: Rosa M Hampton on 05-16-2025 Urea nitrogen/Creatinine [Mass ratio] 21.4 mg/mg High 10-20 [facility] Basophil percentageOrdered B y: Rosa M Mohamudbeth on 05-16-2025 Basophils/100 WBC (Bld) 0.7 % 0-1 [facility] Bilirubin, totalOrdered By: Rosa M Bloomtara on 05-16-2025 Bilirubin [Mass/Vol] 0.25 mg/dL 0.00-1.30 [facility] CBC W/Diff, Automatedon 04-30 Absolute Lymph 2.31 X10 3/uL Normal 0.83-4.51 [facility] Comment on above: Performed By: #### L 100.0100, L300.3900, L501.0900, L4500.0100, L500.4050, L400.2010, L300.4310, L4500.1102 #### [facility] [address] [place], [address] Absolute Neut 4.7 X10 3/uL Normal 2.0-7.7 [facility] Comment on above: Performed By: #### L 100.0100, L300.3900, L501.0900, L4500.0100, L500.4050, L400.2011, L300.4310, L4500.1102 #### [facility] [address] [place], [address] Basophils/100 WBC (Bld) 0.7 % Normal 0-1 [facility] Comment on above: Performed By: #### L 100.0100, L300.3900, L501.0900, L4500.0100, L500.4050, L400.2011, L300.4310, L4500.1102 #### [facility] [address] [place], [address] Eosinophils/100 WBC (Bld) 1.2 % Normal 0-5 [facility] Comment on above: Performed By: #### L 100.0100, L300.3900, L501.0900, L4500.0100, L500.4050, L400.2011, L300.4310, L4500.1102 #### [facility] [address] [place], [address] Erythrocyte distribution width (RBC) [Ratio] 12.8 % Normal 11.6-14.6 [facility] Comment on above: Performed By: #### L 100.0100, L300.3900, L501.0900, L4500.0100, L500.4050, L400.2010, L300.4310, L4500.1102 #### [facility] [address] [place], [address] Hematocrit (Bld) [Volume fraction] 43.2 % Normal 37-47 [facility] Comment on above: Performed By: #### L 100.0100, L300.3900, L501.0900, L4500.0100, L500.4050, L400.2010, L300.4310, L4500.1102 #### [facility] [address] [place], [address] Hemoglobin (Bld) [Mass/Vol] 14.8 g/dL Normal 12.0-15.0 [facility] Comment on above: Performed By: #### L 100.0100, L300.3900, L501.0900, L4500.0100, L500.4050, L400.2011, L300.4310, L4500.1102 #### [facility] [address] [place], [address] IG% 0.100 Normal 0.0-0.9 [facility] Comment on above: Result Comment: IG% - Immature Granulocytes (promyelocytes, myelocytes and metamyelocytes) > 1% indicates that a LEFT SHIFT is Present. Performed By: #### L 100.0100, L300.3900, L501.0900, L4500.0100, L500.4050, L400.2011, L300.4310, L4500.1102 #### [facility] [address] [place], [address] Lymphocytes/100 WBC (Bld) 30.3 % Normal 19-41 [facility] Comment on above: Performed By: #### L 100.0100, L300.3900, L501.0900, L4500.0100, L500.4050, L400.2011, L300.4310, L4500.1102 #### [facility] [address] [place], [address] MCH (RBC) [Entitic mass] 31.4 pg Normal 27.0-32.0 [facility] Comment on above: Performed By: #### L 100.0100, L300.3900, L501.0900, L4500.0100, L500.4050, L400.2011, L300.4310, L4500.1102 #### [facility] [address] [place], [address] MCHC (RBC) [Mass/Vol] 34.3 g/dL Normal 32-36 [facility] Comment on above: Performed By: #### L 100.0100, L300.3900, L501.0900, L4500.0100, L500.4050, L400.2011, L300.4310, L4500.1102 #### [facility] [address] [place], [address] MCV (RBC) [Entitic vol] 91.7 fL Normal 81-99 [facility] Comment on above: Performed By: #### L 100.0100, L300.3900, L501.0900, L4500.0100, L500.4050, L400.2011, L300.4310, L4500.1102 #### [facility] [address] [place], [address] Monocytes/100 WBC (Bld) 6.2 % Normal 0-10 [facility] Comment on above: Performed By: #### L 100.0100, L300.3900, L501.0900, L4500.0100, L500.4050, L400.2011, L300.4310, L4500.1102 #### [facility] [address] [place], [address] Neutrophils/100 WBC (Bld) 61.5 % Normal 47-70 [facility] Comment on above: Performed By: #### L 100.0100, L300.3900, L501.0900, L4500.0100, L500.4050, L400.2011, L300.4310, L4500.1102 #### [facility] [address] [place], [address] Nucleated RBC (Bld) [#/Vol] 0 10*3/uL Normal 0-5 [facility] Comment on above: Performed By: #### L 100.0100, L300.3900, L501.0900, L4500.0100, L500.4050, L400.2010, L300.4310, L4500.1102 #### [facility] [address] [place], [address] Platelet mean volume (Bld) [Entitic vol] 10.3 fL Normal 6.2-12.0 [facility] Comment on above: Performed By: #### L 100.0100, L300.3900, L501.0900, L4500.0100, L500.4050, L400.2010, L300.4310, L4500.1102 #### [facility] [address] [place], [address] Platelets (Bld) [#/Vol] 189 10*3/uL Normal 150-450 [facility] Comment on above: Performed By: #### L 100.0100, L300.3900, L501.0900, L4500.0100, L500.4050, L400.2011, L300.4310, L4500.1102 #### [facility] [address] [place], [address] RBC (Bld) [#/Vol] 4.71 10*6/uL Normal 4.2-5.4 [facility] Comment on above: Performed By: #### L 100.0100, L300.3900, L501.0900, L4500.0100, L500.4050, L400.2011, L300.4310, L4500.1102 #### [facility] [address] [place], [address] RDW SD 42.8 fl Normal 35.1-43.9 [facility] Comment on above: Performed By: #### L 100.0100, L300.3900, L501.0900, L4500.0100, L500.4050, L400.2011, L300.4310, L4500.1102 #### [facility] [address] [place], [address] WBC (Bld) [#/Vol] 7.6 10*3/uL Normal 4.4-11.0 [facility] Comment on above: Performed By: #### L 100.0100, L300.3900, L501.0900, L4500.0100, L500.4050, L400.2010, L300.4310, L4500.1102 #### [facility] [address] [place], [place], [id number] Carbon dioxide, total [Moles /volume] in Central venous bloodOrdered By: Rosa M Hampton on 05-16-2025 CO2 [Moles/Vol] 23.4 mmol/L 21.0-32.0 [facility] Chloride assayOrdered By: Harpreet Hampton on 05-16-2025 Chloride [Moles/Vol] 106 mmol/L 98-108 [facility] Comprehensive Metabolic Prof ilon 05-16-2025 Albumin [Mass/Vol] 4.4 g/dL Normal 3.4-4.8 [facility] Comment on above: Performed By: #### L 100.0100, L300.3900, L501.0900, L4500.0100, L500.4050, L400.2011, L300.4310, L4500.1102 #### [facility] [address] [place], [address] Albumin/Globulin [Mass ratio] 1.7 {ratio} Normal 0.9-2.4 [facility] Comment on above: Performed By: #### L 100.0100, L300.3900, L501.0900, L4500.0100, L500.4050, L400.2011, L300.4310, L4500.1102 #### [facility] [address] [place], [address] ALK PHOS 76 U/L Normal 35-104 [facility] Comment on above: Performed By: #### L 100.0100, L300.3900, L501.0900, L4500.0100, L500.4050, L400.2011, L300.4310, L4500.1102 #### [facility] [address] [place], [address] ALT [Catalytic activity/Vol] 19 U/L Normal <=34 [facility] Comment on above: Performed By: #### L 100.0100, L300.3900, L501.0900, L4500.0100, L500.4050, L400.2011, L300.4310, L4500.1102 #### [facility] [address] [place], [address] AST [Catalytic activity/Vol] 21 U/L Normal <=31 [facility] Comment on above: Performed By: #### L 100.0100, L300.3900, L501.0900, L4500.0100, L500.4050, L400.2011, L300.4310, L4500.1102 #### [facility] [address] [place], [address] Bilirubin [Mass/Vol] 0.25 mg/dL Normal 0.00-1.30 [facility] Comment on above: Performed By: #### L 100.0100, L300.3900, L501.0900, L4500.0100, L500.4050, L400.2011, L300.4310, L4500.1102 #### [facility] [address] [place], [address] BUN/CRE 21.4 RATIO High 10-20 [facility] Comment on above: Performed By: #### L 100.0100, L300.3900, L501.0900, L4500.0100, L500.4050, L400.2010, L300.4310, L4500.1102 #### [facility] [address] [place], [address] Calcium [Mass/Vol] 9.2 mg/dL Normal 7.6-11.0 [facility] Comment on above: Performed By: #### L 100.0100, L300.3900, L501.0900, L4500.0100, L500.4050, L400.2010, L300.4310, L4500.1102 #### [facility] [address] [place], [address] Chloride [Moles/Vol] 106 mmol/L Normal 98-108 [facility] Comment on above: Performed By: #### L 100.0100, L300.3900, L501.0900, L4500.0100, L500.4050, L400.2011, L300.4310, L4500.1102 #### [facility] [address] [place], [address] CO2 [Moles/Vol] 23.4 mmol/L Normal 21.0-32.0 [facility] Comment on above: Performed By: #### L 100.0100, L300.3900, L501.0900, L4500.0100, L500.4050, L400.2011, L300.4310, L4500.1102 #### [facility] [address] [place], [place], [id number] (537) Creatinine [Mass/Vol] 0.74 mg/dL Normal 0.70-1.20 [facility] Comment on above: Performed By: #### L 100.0100, L300.3900, L501.0900, L4500.0100, L500.4050, L400.2011, L300.4310, L4500.1102 #### [facility] [address] [place], [address] (400) GAP 10 Normal 5-15 [facility] Comment on above: Performed By: #### L 100.0100, L300.3900, L501.0900, L4500.0100, L500.4050, L400.2010, L300.4310, L4500.1102 #### [facility] [address] [place], [place], [id number] (384) GFR/1.73 sq M.predicted among non-blacks MDRD (S/P/Bld) [Vol rate/Area] 89 mL/min/{1.73_m2} Normal >60 [facility] Comment on above: Result Comment: mL/m in/1.73m2 CKD-EPI Creatinine Equation (2020) Performed By: #### L 100.0100, L300.3900, L501.0900, L4500.0100, L500.4050, L400.2010, L300.4310, L4500.1102 #### [facility] [address] [place], [place], [id number] (196) Globulin (S) [Mass/Vol] 2.6 g/dL Normal 2.2-4.2 [facility] Comment on above: Performed By: #### L 100.0100, L300.3900, L501.0900, L4500.0100, L500.4050, L400.2010, L300.4310, L4500.1102 #### [facility] [address] [place], [address] Glucose [Mass/Vol] 108 mg/dL High 70-99 [facility] Comment on above: Performed By: #### L 100.0100, L300.3900, L501.0900, L4500.0100, L500.4050, L400.2010, L300.4310, L4500.1102 #### [facility] [address] [place], [address] Potassium [Moles/Vol] 4.3 mmol/L Normal 3.3-5.1 [facility] Comment on above: Performed By: #### L 100.0100, L300.3900, L501.0900, L4500.0100, L500.4050, L400.2010, L300.4310, L4500.1102 #### [facility] [address] [place], [address] Sodium [Moles/Vol] 140 mmol/L Normal 133-145 [facility] Comment on above: Performed By: #### L 100.0100, L300.3900, L501.0900, L4500.0100, L500.4050, L400.2010, L300.4310, L4500.1102 #### [facility] [address] [place], [address] T PROT 7.0 g/dL Normal 5.9-8.4 [facility] Comment on above: Performed By: #### L 100.0100, L300.3900, L501.0900, L4500.0100, L500.4050, L400.2010, L300.4310, L4500.1102 #### [facility] [address] [place], [address] Urea nitrogen [Mass/Vol] 16 mg/dL Normal 4-19 [facility] Comment on above: Performed By: #### L 100.0100, L300.3900, L501.0900, L4500.0100, L500.4050, L400.2011, L300.4310, L4500.1102 #### [facility] [address], [address] Eosinophil percentageOrdered By: Rosa M Hampton on 05-16-2025 Eosinophils/100 WBC (Bld) 1.2 % 0-5 [facility] Erythrocyte distribution wid th ratioOrdered By: [facility] on 05-16-2025 Erythrocyte distribution width (RBC) [Ratio] 12.8 % 11.6-14.6 [facility] Erythrocyte distribution wid th standard deviationOrdered By: Rosa M Hampton on 05-16-2025 Erythrocyte distribution width (RBC) [Ratio] 42.8 fl 35.1-43.9 [facility] Glomerular filtration rate ( GFR) estimation/1.73 sq m using serum, plasma, or whole bOrdered By: Rosa M Hampton on 05-16-2025 GFR/1.73 sq M.predicted among non-blacks MDRD (S/P/Bld) [Vol rate/Area] 89 mL/min/{1.73_m2} >60 [facility] Comment on above: mL/min/1.73m2 CKD-EP I Creatinine Equation (2020) Hematocrit Auto (Bld) [Volum e fraction]Ordered By: Rosa M Hampton on 05-16-2025 Hematocrit (Bld) [Volume fraction] 43.2 % 37-47 [facility] Hemoglobin measurementOrdere d By: Rosa M Hampton on 05-16-2025 Hemoglobin (Bld) [Mass/Vol] 14.8 g/dL 12.0-15.0 [facility] Immature granulocytes/100 WB C Auto (Bld)Ordered By: Rosa M Hampton on 05-16-2025 Immature granulocytes/100 WBC (Bld) 0.100 % 0.0-0.9 [facility] Comment on above: IG% - Immature Granu locytes (promyelocytes, myelocytes and metamyelocytes) > 1% indicates that a LEFT SHIFT is Present. Laboratory - Chemistry and C hemistry - challengeOrdered By: Rosa M Hampton on 05-16-2025 AST [Catalytic activity/Vol] 21 U/L <32 [facility] MCV (mean corpuscular volume ) determinationOrdered By: Rosa M Hampton on 05-16-2025 MCV (RBC) [Entitic vol] 91.7 fL 81-99 [facility] Mean corpuscular hemoglobin (MCH) determinationOrdered By: Rosa M Hampton on 05-16-2025 MCH (RBC) [Entitic mass] 31.4 pg 27.0-32.0 [facility] Mean corpuscular hemoglobin concentration (MCHC) determinationOrdered By: Rosa M Hampton on 05-16-2025 MCHC (RBC) [Mass/Vol] 34.3 g/dL 32-36 [facility] Mean platelet volume determi nationOrdered By: Rosa M Hampton on 05-16-2025 Platelet mean volume (Bld) [Entitic vol] 10.3 fL 6.2-12.0 [facility] Monocyte percentageOrdered B y: Rosa M Hampton on 05-16-2025 Monocytes/100 WBC (Bld) 6.2 % 0-10 [facility] Neutrophil percentageOrdered By: Rosa M Hampton on 05-16-2025 Neutrophils/100 WBC (Bld) 61.5 % 47-70 [facility] Nucleated red blood cell per centageOrdered By: Rosa M Hampton on 05-16-2025 Nucleated RBC/100 WBC (Bld) [Ratio] 0 % 0-5 [facility] Platelet countOrdered By: Harpreet Hampton on 05-16-2025 Platelets (Bld) [#/Vol] 189 10*3/uL 150-450 [facility] Potassium measurement (mass/ volume)Ordered By: Rosa M Hampton on 05-16-2025 Potassium (Unsp spec) [Mass/Vol] 4.3 mmol/L 3.3-5.1 [facility] RBC Auto (Bld) [#/Vol]Ordere d By: Rosa M Hampton on 05-16-2025 RBC (Bld) [#/Vol] 4.71 10*6/uL 4.2-5.4 [facility] Serum creatinine measurement (mass/volume)Ordered By: Rsoa M Hampton on 05-16-2025 Creatinine [Mass/Vol] 0.74 mg/dL 0.70-1.20 [facility] Serum globulin measurementOr dered By: Rosa M Hampton on 05-16-2025 Globulin (S) [Mass/Vol] 2.6 g/dL 2.2-4.2 [facility] Serum glucose measurement (m ass/volume)Ordered By: Rosa M Hampton on 05-16-2025 Glucose [Mass/Vol] 108 mg/dL High 70-99 [facility] Serum or plasma alanine salvador otransferase (ALT) measurementOrdered By: Rosa M Hampton on 05-16-2025 ALT [Catalytic activity/Vol] 19 U/L <35 [facility] Serum or plasma albumin sharon urement (mass/volume)Ordered By: Rosa M Hampton on 05-16-2025 Albumin [Mass/Vol] 4.4 g/dL 3.4-4.8 [facility] Serum or plasma albumin/glob ulin mass ratioOrdered By: Rosa M Hampton on 05-16-2025 Albumin/Globulin [Mass ratio] 1.7 {ratio} 0.9-2.4 [facility] Serum or plasma alkaline fernando sphatase measurementOrdered By: Rosa M Hampton on 05-16-2025 ALP [Catalytic activity/Vol] 76 U/L 35-104 [facility] Serum or plasma calcium sharon urement (mass/volume)Ordered By: Rosa M Hampton on 05-16-2025 Calcium [Mass/Vol] 9.2 mg/dL 7.6-11.0 [facility] Serum or plasma urea nitroge n measurement (mass/volume)Ordered By: Rosa M Hampton on 05-16-2025 Urea nitrogen [Mass/Vol] 16 mg/dL 4-19 [facility] Sodium levelOrdered By: Mallory Hampton on 05-16-2025 Sodium [Moles/Vol] 140 mmol/L 133-145 [facility] Total proteinOrdered By: Sania Hampton on 05-16-2025 Protein [Mass/Vol] 7.0 g/dL 5.9-8.4 [facility] White blood cell (WBC) count Ordered By: Rosa Mhardeep Hampton on 05-16-2025 WBC (Bld) [#/Vol] 7.6 10*3/uL 4.4-11.0 [facility] Absolute lymphocyte countOrd ered By: Rosa Mhardeep Hampton on 02-23-2025 Lymphocytes Auto (Unsp spec) [#/Vol] 2.86 10*3/uL 0.83-4.51 [facility] Absolute neutrophil countOrd ered By: [facility] Memo on 02-23-2025 Neutrophils (Bld) [#/Vol] 3.6 10*3/uL 2.0-7.7 [facility] Anion gap in Serum or Plasma Ordered By: Rosa M Hampton on 02-23-2025 Anion gap [Moles/Vol] 10 mmol/L 5-15 [facility] Automated lymphocyte count a s percentage of total leukocytesOrdered By: [facility] Memo on 02-23-2025 Lymphocytes/100 WBC Auto (Unsp spec) 40.7 % 19-41 [facility] BUN/creatinine ratioOrdered By: [facility] Memo on 02-23-2025 Urea nitrogen/Creatinine [Mass ratio] 29.1 mg/mg High 10-20 [facility] Basophil percentageOrdered B y: Rosa M Hampton on 02-23-2025 Basophils/100 WBC (Bld) 0.6 % 0-1 [facility] Bilirubin, totalOrdered By: Rosa Mhardeep Hampton on 02-23-2025 Bilirubin [Mass/Vol] 0.25 mg/dL Normal 0.00-1.30 [facility] Comment on above: Performed By: #### L 500.4050, L100.0100 #### [facility] [address] [place], [address] CBC W/Diff, Automatedon 01-29 Absolute Lymph 2.86 X10 3/uL Normal 0.83-4.51 [facility] Comment on above: Performed By: #### L 500.4050, L100.0100 #### [facility] [address] [place], [address] Absolute Neut 3.6 X10 3/uL Normal 2.0-7.7 [facility] Comment on above: Performed By: #### L 500.4050, L100.0100 #### [facility] [address] [place], [address] Basophils/100 WBC (Bld) 0.6 % Normal 0-1 [facility] Comment on above: Performed By: #### L 500.4050, L100.0100 #### [facility] [address] [place], [address] Eosinophils/100 WBC (Bld) 0.9 % Normal 0-5 [facility] Comment on above: Performed By: #### L 500.4050, L100.0100 #### [facility] [address] [place], [address] Erythrocyte distribution width (RBC) [Ratio] 12.4 % Normal 11.6-14.6 [facility] Comment on above: Performed By: #### L 500.4050, L100.0100 #### [facility] [address] [place], [address] Hematocrit (Bld) [Volume fraction] 41.6 % Normal 37-47 [facility] Comment on above: Performed By: #### L 500.4050, L100.0100 #### [facility] [address] [place], [address] Hemoglobin (Bld) [Mass/Vol] 14.4 g/dL Normal 12.0-15.0 [facility] Comment on above: Performed By: #### L 500.4050, L100.0100 #### [facility] [address] [place], [address] IG% 0.100 Normal 0.0-0.9 [facility] Comment on above: Result Comment: IG% - Immature Granulocytes (promyelocytes, myelocytes and metamyelocytes) > 1% indicates that a LEFT SHIFT is Present. Performed By: #### L 500.4050, L100.0100 #### [facility] [address] [place], [address] Lymphocytes/100 WBC (Bld) 40.7 % Normal 19-41 [facility] Comment on above: Performed By: #### L 500.4050, L100.0100 #### [facility] [address] [place], [address] MCH (RBC) [Entitic mass] 31.5 pg Normal 27.0-32.0 [facility] Comment on above: Performed By: #### L 500.4050, L100.0100 #### [facility] [address] [place], [address] MCHC (RBC) [Mass/Vol] 34.6 g/dL Normal 32-36 [facility] Comment on above: Performed By: #### L 500.4050, L100.0100 #### [facility] [address] [place], [address] MCV (RBC) [Entitic vol] 91.0 fL Normal 81-99 [facility] Comment on above: Performed By: #### L 500.4050, L100.0100 #### [facility] [address] [place], [address] Monocytes/100 WBC (Bld) 6.1 % Normal 0-10 [facility] Comment on above: Performed By: #### L 500.4050, L100.0100 #### [facility] [address] [place], [address] Neutrophils/100 WBC (Bld) 51.6 % Normal 47-70 [facility] Comment on above: Performed By: #### L 500.4050, L100.0100 #### [facility] [address] [place], [address] Nucleated RBC (Bld) [#/Vol] 0 10*3/uL Normal 0-5 [facility] Comment on above: Performed By: #### L 500.4050, L100.0100 #### [facility] [address] [place], [address] Platelet mean volume (Bld) [Entitic vol] 10.4 fL Normal 6.2-12.0 [facility] Comment on above: Performed By: #### L 500.4050, L100.0100 #### [facility] [address] [place], [address] Platelets (Bld) [#/Vol] 199 10*3/uL Normal 150-450 [facility] Comment on above: Performed By: #### L 500.4050, L100.0100 #### [facility] [address] [place], [address] RBC (Bld) [#/Vol] 4.57 10*6/uL Normal 4.2-5.4 [facility] Comment on above: Performed By: #### L 500.4050, L100.0100 #### [facility] [address] [place], [address] RDW SD 41.2 fl Normal 35.1-43.9 [facility] Comment on above: Performed By: #### L 500.4050, L100.0100 #### [facility] [address] [place], [address] WBC (Bld) [#/Vol] 7.0 10*3/uL Normal 4.4-11.0 [facility] Comment on above: Performed By: #### L 500.4050, L100.0100 #### [facility] [address] [place], [address] Carbon dioxide, total [Moles /volume] in Central venous bloodOrdered By: Rosa M Hampton on 02-23-2025 CO2 [Moles/Vol] 23.4 mmol/L Normal 21.0-32.0 [facility] Comment on above: Performed By: #### L 500.4050, L100.0100 #### [facility] [address] [place], [address] Chloride assayOrdered By: Harpreet Hampton on 02-23-2025 Chloride [Moles/Vol] 105 mmol/L Normal 98-108 [facility] Comment on above: Performed By: #### L 500.4050, L100.0100 #### [facility] [address] [place], [address] Comprehensive Metabolic Prof ilon 02-23-2025 ALK PHOS 75 U/L Normal 35-104 [facility] Comment on above: Performed By: #### L 500.4050, L100.0100 #### [facility] [address] [place], [address] BUN/CRE 29.1 RATIO High 10-20 [facility] Comment on above: Performed By: #### L 500.4050, L100.0100 #### [facility] [address] [place], [address] GAP 10 Normal 5-15 [facility] Comment on above: Performed By: #### L 500.4050, L100.0100 #### [facility] [address] [place], [address] T PROT 7.1 g/dL Normal 5.9-8.4 [facility] Comment on above: Performed By: #### L 500.4050, L100.0100 #### [facility] [address] [place], [address] Comprehensive Metabolic Prof ilOrdered By: Rosa M Hampton on 02-23-2025 AST [Catalytic activity/Vol] 21 U/L Normal <=31 [facility] Comment on above: Performed By: #### L 500.4050, L100.0100 #### [facility] [address] [place], [address] Eosinophil percentageOrdered By: Rosa M Hampton on 02-23-2025 Eosinophils/100 WBC (Bld) 0.9 % 0-5 [facility] Erythrocyte distribution wid th (RBC) [Ratio]Ordered By: Rosa M Hampton on 02-23-2025 Erythrocyte distribution width (RBC) [Entitic vol] 41.2 fL 35.1-43.9 [facility] Erythrocyte distribution wid th ratioOrdered By: Rosa M Hmapton on 02-23-2025 Erythrocyte distribution width (RBC) [Ratio] 12.4 % 11.6-14.6 [facility] Erythrocyte distribution wid th standard deviationOrdered By: Rosa M Memo on 02-23-2025 Erythrocyte distribution width (RBC) [Ratio] 41.2 fl 35.1-43.9 [facility] GFR/1.73 sq M.predicted mike g non-blacks MDRD (S/P/Bld) [Vol rate/Area]Ordered By: Rosa M Hampton on 02-23-2025 Estimated GFR (MDRD) Non-Af Amer 87 >60 [facility] Comment on above: mL/min/1.73m2 CKD-EP I Creatinine Equation (2020) Glomerular filtration rate ( GFR) estimation/1.73 sq m using serum, plasma, or whole bOrdered By: Rosa M Hampton on 02-23-2025 GFR/1.73 sq M.predicted among non-blacks MDRD (S/P/Bld) [Vol rate/Area] 87 mL/min/{1.73_m2} Normal >60 [facility] Comment on above: mL/min/1.73m2 CKD-EP I Creatinine Equation (2020) Result Comment: mL/m in/1.73m2 CKD-EPI Creatinine Equation (2020) Performed By: #### L 500.4050, L100.0100 #### [facility] [address] [place], [place], [id number] Hematocrit Auto (Bld) [Volum e fraction]Ordered By: Rosa M Hampton on 02-23-2025 Hematocrit (Bld) [Volume fraction] 41.6 % 37-47 [facility] Hemoglobin measurementOrdere d By: Rosa M Hampton on 02-23-2025 Hemoglobin (Bld) [Mass/Vol] 14.4 g/dL 12.0-15.0 [facility] Immature granulocytes/100 WB C Auto (Bld)Ordered By: Rosa M Hampton on 02-23-2025 Immature granulocytes/100 WBC (Bld) 0.100 % 0.0-0.9 [facility] Comment on above: IG% - Immature Granu locytes (promyelocytes, myelocytes and metamyelocytes) > 1% indicates that a LEFT SHIFT is Present. Lymphocytes Auto (Unsp spec) [#/Vol]Ordered By: [facility] Memo on 02-23-2025 Lymphocytes (Bld) [#/Vol] 2.86 10*3/uL 0.83-4.51 [facility] Lymphocytes/100 WBC Auto (Un sp spec)Ordered By: Rosa M Hampton on 02-23-2025 Lymphocytes/100 WBC (Bld) 40.7 % 19-41 [facility] MCV (mean corpuscular volume ) determinationOrdered By: Rosa M Hampton on 02-23-2025 MCV (RBC) [Entitic vol] 91.0 fL 81-99 [facility] Mean corpuscular hemoglobin (MCH) determinationOrdered By: Rosa M Hampton on 02-23-2025 MCH (RBC) [Entitic mass] 31.5 pg 27.0-32.0 [facility] Mean corpuscular hemoglobin concentration (MCHC) determinationOrdered By: Rosa M Hampton on 02-23-2025 MCHC (RBC) [Mass/Vol] 34.6 g/dL 32-36 [facility] Mean platelet volume determi nationOrdered By: Rosa M Hampton on 02-23-2025 Platelet mean volume (Bld) [Entitic vol] 10.4 fL 6.2-12.0 [facility] Monocyte percentageOrdered B y: Rosa M Hampton on 02-23-2025 Monocytes/100 WBC (Bld) 6.1 % 0-10 [facility] Neutrophil percentageOrdered By: Rosa M Hampton on 02-23-2025 Neutrophils/100 WBC (Bld) 51.6 % 47-70 [facility] Nucleated red blood cell per centageOrdered By: Rosa M Hampton on 02-23-2025 Nucleated RBC/100 WBC (Bld) [Ratio] 0 % 0-5 [facility] Platelet countOrdered By: Harpreet Hampton on 02-23-2025 Platelets (Bld) [#/Vol] 199 10*3/uL 150-450 [facility] Potassium measurement (mass/ volume)Ordered By: Rosa M Hampton on 02-23-2025 Potassium (Unsp spec) [Mass/Vol] 4.1 mmol/L 3.3-5.1 [facility] Potassium [Moles/Vol] 4.1 mmol/L Normal 3.3-5.1 [facility] Comment on above: Performed By: #### L 500.4050, L100.0100 #### [facility] [address], [address] RBC Auto (Bld) [#/Vol]Ordere d By: Rosa M Hampton on 02-23-2025 RBC (Bld) [#/Vol] 4.57 10*6/uL 4.2-5.4 [facility] Serum creatinine measurement (mass/volume)Ordered By: Rosa M Hampton on 02-23-2025 Creatinine [Mass/Vol] 0.76 mg/dL Normal 0.70-1.20 [facility] Comment on above: Performed By: #### L 500.4050, L100.0100 #### [facility] [address] [place], [address] Serum globulin measurementOr dered By: Rosa M Hampton on 02-23-2025 Globulin (S) [Mass/Vol] 3.4 g/dL Normal 2.2-4.2 [facility] Comment on above: Performed By: #### L 500.4050, L100.0100 #### [facility] [address] [place], [address] Serum glucose measurement (m ass/volume)Ordered By: Rosa M Hampton on 02-23-2025 Glucose [Mass/Vol] 89 mg/dL Normal 70-99 [facility] Comment on above: Performed By: #### L 500.4050, L100.0100 #### [facility] [address] [place], [address] Serum or plasma alanine salvador otransferase (ALT) measurementOrdered By: Rosa M Hampton on 02-23-2025 ALT [Catalytic activity/Vol] 20 U/L Normal <=34 [facility] Comment on above: Performed By: #### L 500.4050, L100.0100 #### [facility] [address] [place], [address] Serum or plasma albumin sharon urement (mass/volume)Ordered By: Rosa M Hampton on 02-23-2025 Albumin [Mass/Vol] 3.7 g/dL Normal 3.4-4.8 [facility] Comment on above: Performed By: #### L 500.4050, L100.0100 #### [facility] [address] [place], [address] Serum or plasma albumin/glob ulin mass ratioOrdered By: Rosa M Hampton on 02-23-2025 Albumin/Globulin [Mass ratio] 1.1 {ratio} Normal 0.9-2.4 [facility] Comment on above: Performed By: #### L 500.4050, L100.0100 #### [facility] [address] [place], [address] Serum or plasma alkaline fernando sphatase measurementOrdered By: Rosa M Hampton on 02-23-2025 ALP [Catalytic activity/Vol] 75 U/L 35-104 [facility] Serum or plasma calcium sharon urement (mass/volume)Ordered By: Rosa M Hampton on 02-23-2025 Calcium [Mass/Vol] 8.9 mg/dL Normal 7.6-11.0 [facility] Comment on above: Performed By: #### L 500.4050, L100.0100 #### [facility] [address] [place], [address] Serum or plasma urea nitroge n measurement (mass/volume)Ordered By: Rosa M Hampton on 02-23-2025 Urea nitrogen [Mass/Vol] 22 mg/dL High 4-19 [facility] Comment on above: Performed By: #### L 500.4050, L100.0100 #### [facility] [address] [place], [address] Sodium levelOrdered By: Mallory Hampton on 02-23-2025 Sodium [Moles/Vol] 138 mmol/L Normal 133-145 [facility] Comment on above: Performed By: #### L 500.4050, L100.0100 #### [facility] [address] [place], [address] Total proteinOrdered By: Sania Hampton on 02-23-2025 Protein [Mass/Vol] 7.1 g/dL 5.9-8.4 [facility] White blood cell (WBC) count Ordered By: Rosa M Hampton on 02-23-2025 WBC (Bld) [#/Vol] 7.0 10*3/uL 4.4-11.0 [facility] Hexagonal Phase Phospholipid on 11-09-2024 HEX PHAS PHOSPH 4 sec Normal 0-11 [facility] Comment on above: Performed By: #### L 100.0100, L300.3900, L501.0900, L4500.0100, L500.4050, L400.2011, L300.4310, L4500.1102 #### [facility] [address] [place], [address] Lupus Anticoagulant Compon 1 01-10-2024 aPTT Coag (Bld) [Time] 32.4 s Normal 0.0-43.5 [facility] Comment on above: Performed By: #### L 100.0100, L300.3900, L501.0900, L4500.0100, L500.4050, L400.2010, L300.4310, L4500.1102 #### [facility] [address] [place], [place], [address] COMMENT Comment Normal . [facility] Comment on above: Result Comment: Resu lts do not indicate the presence of a Lupus Anticoagulant: abnormal high screening results (PTT-LA, dRVVT, mixing studies), may be due to medication (heparin, warfarin, aspirin), Factor inhibitors, anticardiolipin antibodies, or poor specimen integrity. Performed at: [address] [id number] [place] Helper: Omar Loredo MD, Phone: [phone] Performed By: #### L 100.0100, L300.3900, L501.0900, L4500.0100, L500.4050, L400.2010, L300.4310, L4500.1102 #### [facility] [address] [place], [address] DILUTE PT (dPT) 38.0 sec Normal 0.0-47.6 [facility] Comment on above: Performed By: #### L 100.0100, L300.3900, L501.0900, L4500.0100, L500.4050, L400.2010, L300.4310, L4500.1102 #### [facility] [address] [place], [address] dPT Conf. Ratio 1.22 Ratio Normal 0.00-1.34 [facility] Comment on above: Performed By: #### L 100.0100, L300.3900, L501.0900, L4500.0100, L500.4050, L400.2011, L300.4310, L4500.1102 #### [facility] [address] [place], [place], [id number] DRVVT 37.5 sec Normal 0.0-47.0 [facility] Comment on above: Performed By: #### L 100.0100, L300.3900, L501.0900, L4500.0100, L500.4050, L400.2011, L300.4310, L4500.1102 #### [facility] [address] [place], [address] Interpretation Comment: Normal . [facility] Comment on above: Result Comment: No l upus anticoagulant was detected. Performed By: #### L 100.0100, L300.3900, L501.0900, L4500.0100, L500.4050, L400.2011, L300.4310, L4500.1102 #### [facility] [address] [place], [address] THROMBIN TIME 19.4 sec Normal 0.0-23.0 [facility] Comment on above: Performed By: #### L 100.0100, L300.3900, L501.0900, L4500.0100, L500.4050, L400.2010, L300.4310, L4500.1102 #### [facility] [address] [place], [place], [id number] Absolute neutrophil countOrd ered By: Rosa M Hampton on 11-07-2024 Neutrophils (Bld) [#/Vol] 3.5 10*3/uL 2.0-7.7 [facility] Albumin to globulin ratioOrd ered By: Rosa M Hampton on 11-07-2024 Albumin/Globulin [Mass ratio] 1.2 {ratio} 0.9-2.4 [facility] Basophil percentageOrdered B y: Rosa M Hampton on 11-07-2024 Basophils/100 WBC (Bld) 0.6 % 0-1 [facility] Bilirubin Test strip Ql (U)O rdered By: Rosa M Hampton on 11-07-2024 Bilirubin Ql (U) Negative Negative [facility] Bilirubin, totalOrdered By: Rosa M Hampton on 11-07-2024 Bilirubin [Mass/Vol] 0.30 mg/dL 0.20-1.00 [facility] Comment on above: For patients on eltr ombopag therapy, use of Dimension [place] TBIL is not recommended. Blood urea nitrogen (BUN)/cr eatinine ratioOrdered By: Rosa M Hampton on 11-07-2024 Urea nitrogen/Creatinine [Mass ratio] 39.0 mg/mg High 10-20 [facility] CBC W/Diff, Automatedon 12- Absolute Lymph 3.32 X10 3/uL Normal 0.83-4.51 [facility] Comment on above: Performed By: #### L 100.0100, L300.3900, L501.0900, L4500.0100, L500.4050, L400.2010, L300.4310, L4500.1102 #### [facility] [address] [place], [address] Absolute Neut 3.5 X10 3/uL Normal 2.0-7.7 [facility] Comment on above: Performed By: #### L 100.0100, L300.3900, L501.0900, L4500.0100, L500.4050, L400.2010, L300.4310, L4500.1102 #### [facility] [address] [place], [address] Basophils/100 WBC (Bld) 0.6 % Normal 0-1 [facility] Comment on above: Performed By: #### L 100.0100, L300.3900, L501.0900, L4500.0100, L500.4050, L400.2010, L300.4310, L4500.1102 #### [facility] [address] [place], [address] Eosinophils/100 WBC (Bld) 0.8 % Normal 0-5 [facility] Comment on above: Performed By: #### L 100.0100, L300.3900, L501.0900, L4500.0100, L500.4050, L400.2011, L300.4310, L4500.1102 #### [facility] [address] [place], [address] Erythrocyte distribution width (RBC) [Ratio] 12.7 % Normal 11.6-14.6 [facility] Comment on above: Performed By: #### L 100.0100, L300.3900, L501.0900, L4500.0100, L500.4050, L400.2011, L300.4310, L4500.1102 #### [facility] [address] [place], [address] Hematocrit (Bld) [Volume fraction] 43.2 % Normal 37-47 [facility] Comment on above: Performed By: #### L 100.0100, L300.3900, L501.0900, L4500.0100, L500.4050, L400.2011, L300.4310, L4500.1102 #### [facility] [address] [place], [address] Hemoglobin (Bld) [Mass/Vol] 14.7 g/dL Normal 12.0-15.0 [facility] Comment on above: Performed By: #### L 100.0100, L300.3900, L501.0900, L4500.0100, L500.4050, L400.2011, L300.4310, L4500.1102 #### [facility] [address] [place], [address] IG% 0.100 Normal 0.0-0.9 [facility] Comment on above: Result Comment: IG% - Immature Granulocytes (promyelocytes, myelocytes and metamyelocytes) > 1% indicates that a LEFT SHIFT is Present. Performed By: #### L 100.0100, L300.3900, L501.0900, L4500.0100, L500.4050, L400.2011, L300.4310, L4500.1102 #### [facility] [address] [place], [address] Lymphocytes/100 WBC (Bld) 46.0 % High 19-41 [facility] Comment on above: Performed By: #### L 100.0100, L300.3900, L501.0900, L4500.0100, L500.4050, L400.2010, L300.4310, L4500.1102 #### [facility] [address] [place], [address] MCH (RBC) [Entitic mass] 31.3 pg Normal 27.0-32.0 [facility] Comment on above: Performed By: #### L 100.0100, L300.3900, L501.0900, L4500.0100, L500.4050, L400.2010, L300.4310, L4500.1102 #### [facility] [address] [place], [address] MCHC (RBC) [Mass/Vol] 34.0 g/dL Normal 32-36 [facility] Comment on above: Performed By: #### L 100.0100, L300.3900, L501.0900, L4500.0100, L500.4050, L400.2010, L300.4310, L4500.1102 #### [facility] [address] [place], [address] MCV (RBC) [Entitic vol] 92.1 fL Normal 81-99 [facility] Comment on above: Performed By: #### L 100.0100, L300.3900, L501.0900, L4500.0100, L500.4050, L400.2011, L300.4310, L4500.1102 #### [facility] [address] [place], [address] Monocytes/100 WBC (Bld) 4.6 % Normal 0-10 [facility] Comment on above: Performed By: #### L 100.0100, L300.3900, L501.0900, L4500.0100, L500.4050, L400.2011, L300.4310, L4500.1102 #### [facility] [address] [place], [address] Neutrophils/100 WBC (Bld) 47.9 % Normal 47-70 [facility] Comment on above: Performed By: #### L 100.0100, L300.3900, L501.0900, L4500.0100, L500.4050, L400.2010, L300.4310, L4500.1102 #### [facility] [address] [place], [address] Nucleated RBC (Bld) [#/Vol] 0 10*3/uL Normal 0-5 [facility] Comment on above: Performed By: #### L 100.0100, L300.3900, L501.0900, L4500.0100, L500.4050, L400.2011, L300.4310, L4500.1102 #### [facility] [address] [place], [address] Platelet mean volume (Bld) [Entitic vol] 10.2 fL Normal 6.2-12.0 [facility] Comment on above: Performed By: #### L 100.0100, L300.3900, L501.0900, L4500.0100, L500.4050, L400.2011, L300.4310, L4500.1102 #### [facility] [address] [place], [address] Platelets (Bld) [#/Vol] 203 10*3/uL Normal 150-450 [facility] Comment on above: Performed By: #### L 100.0100, L300.3900, L501.0900, L4500.0100, L500.4050, L400.2011, L300.4310, L4500.1102 #### [facility] [address] [place], [place], [id number] (163) RBC (Bld) [#/Vol] 4.69 10*6/uL Normal 4.2-5.4 [facility] Comment on above: Performed By: #### L 100.0100, L300.3900, L501.0900, L4500.0100, L500.4050, L400.2011, L300.4310, L4500.1102 #### [facility] [address] [place], [address] (364) RDW SD 42.6 fl Normal 35.1-43.9 [facility] Comment on above: Performed By: #### L 100.0100, L300.3900, L501.0900, L4500.0100, L500.4050, L400.2010, L300.4310, L4500.1102 #### [facility] [address] [place], [place], [id number] (529) WBC (Bld) [#/Vol] 7.2 10*3/uL Normal 4.4-11.0 [facility] Comment on above: Performed By: #### L 100.0100, L300.3900, L501.0900, L4500.0100, L500.4050, L400.2010, L300.4310, L4500.1102 #### [facility] [address] [place], [place], [id number] (240) Carbon dioxide measurementOr dered By: Rosa M Hampton on 11-07-2024 CO2 [Moles/Vol] 26.0 mmol/L 21.0-32.0 [facility] Chloride measurementOrdered By: Rosa M Hampton on 11-07-2024 Chloride [Moles/Vol] 107 mmol/L 98-107 [facility] Comprehensive Metabolic Prof ilon 11-07-2024 Albumin [Mass/Vol] 4.0 g/dL Normal 3.2-5.0 [facility] Comment on above: Performed By: #### L 100.0100, L300.3900, L501.0900, L4500.0100, L500.4050, L400.2010, L300.4310, L4500.1102 #### [facility] [address] [place], [address] Albumin/Globulin [Mass ratio] 1.2 {ratio} Normal 0.9-2.4 [facility] Comment on above: Performed By: #### L 100.0100, L300.3900, L501.0900, L4500.0100, L500.4050, L400.2010, L300.4310, L4500.1102 #### [facility] [address] [place], [address] ALK P 85 U/L Normal 45-117 [facility] Comment on above: Performed By: #### L 100.0100, L300.3900, L501.0900, L4500.0100, L500.4050, L400.2011, L300.4310, L4500.1102 #### [facility] [address] [place], [address] ALT [Catalytic activity/Vol] 26 U/L Normal 13-56 [facility] Comment on above: Performed By: #### L 100.0100, L300.3900, L501.0900, L4500.0100, L500.4050, L400.2011, L300.4310, L4500.1102 #### [facility] [address] [place], [address] AST [Catalytic activity/Vol] 16 U/L Normal 15-37 [facility] Comment on above: Performed By: #### L 100.0100, L300.3900, L501.0900, L4500.0100, L500.4050, L400.2010, L300.4310, L4500.1102 #### [facility] [address] [place], [address] Bilirubin [Mass/Vol] 0.30 mg/dL Normal 0.20-1.00 [facility] Comment on above: Result Comment: For patients on eltrombopag therapy, use of Dimension [place] TBIL is not recommended. Performed By: #### L 100.0100, L300.3900, L501.0900, L4500.0100, L500.4050, L400.2010, L300.4310, L4500.1102 #### [facility] [address] [place], [address] BUN/CRE 39.0 RATIO High 10-20 [facility] Comment on above: Performed By: #### L 100.0100, L300.3900, L501.0900, L4500.0100, L500.4050, L400.2010, L300.4310, L4500.1102 #### [facility] [address] [place], [address] CA,Total 9.5 mg/dL Normal 8.5-10.1 [facility] Comment on above: Performed By: #### L 100.0100, L300.3900, L501.0900, L4500.0100, L500.4050, L400.2010, L300.4310, L4500.1102 #### [facility] [address] [place], [address] Chloride [Moles/Vol] 107 mmol/L Normal 98-107 [facility] Comment on above: Performed By: #### L 100.0100, L300.3900, L501.0900, L4500.0100, L500.4050, L400.2010, L300.4310, L4500.1102 #### [facility] [address] [place], [address] CO2 [Moles/Vol] 26.0 mmol/L Normal 21.0-32.0 [facility] Comment on above: Performed By: #### L 100.0100, L300.3900, L501.0900, L4500.0100, L500.4050, L400.2011, L300.4310, L4500.1102 #### [facility] [address] [place], [address] Creatinine [Mass/Vol] 0.72 mg/dL Normal 0.55-1.02 [facility] Comment on above: Result Comment: The validity of the calculated GFR GFRAA in patients over 70 years has not been determined. Clinical correlation is essential. Performed By: #### L 100.0100, L300.3900, L501.0900, L4500.0100, L500.4050, L400.2011, L300.4310, L4500.1102 #### [facility] [address] [place], [address] EST GFR - AA 105 mL/min Normal >60 [facility] Comment on above: Result Comment: Afri can Malaysian GFR Calc Performed By: #### L 100.0100, L300.3900, L501.0900, L4500.0100, L500.4050, L400.2011, L300.4310, L4500.1102 #### [facility] [address] [place], [address] GAP 6 Normal 5-15 [facility] Comment on above: Performed By: #### L 100.0100, L300.3900, L501.0900, L4500.0100, L500.4050, L400.2011, L300.4310, L4500.1102 #### [facility] [address] [place], [address] GFR/1.73 sq M.predicted among non-blacks MDRD (S/P/Bld) [Vol rate/Area] 87 mL/min/{1.73_m2} Normal >60 [facility] Comment on above: Result Comment: Non- GFR Calc Performed By: #### L 100.0100, L300.3900, L501.0900, L4500.0100, L500.4050, L400.2010, L300.4310, L4500.1102 #### [facility] [address] [place], [address] Globulin (S) [Mass/Vol] 3.4 g/dL Normal 2.2-4.2 [facility] Comment on above: Performed By: #### L 100.0100, L300.3900, L501.0900, L4500.0100, L500.4050, L400.2010, L300.4310, L4500.1102 #### [facility] [address] [place], [address] Glucose [Mass/Vol] 101 mg/dL Normal 74-106 [facility] Comment on above: Result Comment: Fast ing Glucose result from 100 to 125 mg/dL suggests IMPAIRED HOMEOSTASIS per A.D.A. criteria. Performed By: #### L 100.0100, L300.3900, L501.0900, L4500.0100, L500.4050, L400.2010, L300.4310, L4500.1102 #### [facility] [address] [place], [address] Potassium [Moles/Vol] 3.9 mmol/L Normal 3.5-5.1 [facility] Comment on above: Performed By: #### L 100.0100, L300.3900, L501.0900, L4500.0100, L500.4050, L400.2011, L300.4310, L4500.1102 #### [facility] [address] [place], [address] Sodium [Moles/Vol] 138 mmol/L Normal 136-145 [facility] Comment on above: Performed By: #### L 100.0100, L300.3900, L501.0900, L4500.0100, L500.4050, L400.2011, L300.4310, L4500.1102 #### [facility] [address] [place], [address] T PROT 7.4 g/dL Normal 6.4-8.2 [facility] Comment on above: Performed By: #### L 100.0100, L300.3900, L501.0900, L4500.0100, L500.4050, L400.2011, L300.4310, L4500.1102 #### [facility] [address] [place], [address] Urea nitrogen [Mass/Vol] 28 mg/dL High 7-18 [facility] Comment on above: Performed By: #### L 100.0100, L300.3900, L501.0900, L4500.0100, L500.4050, L400.2011, L300.4310, L4500.1102 #### [facility] [address] [place], [address] Dilute prothrombin time rati o confirmationOrdered By: Rosa M Hampton on 11-07-2024 Prothrombin Time Ratio 1.22 Ratio 0.00-1.34 [facility] EXAGENon 11-07-2024 EXAGEN MAILED SPECIMEN Normal [facility] Comment on above: Performed By: #### L 100.0100, L300.3900, L501.0900, L4500.0100, L500.4050, L400.2011, L300.4310, L4500.1102 #### [facility] [address] [place], [address] Eosinophil percentageOrdered By: Rosa M Hampton on 11-07-2024 Eosinophils/100 WBC (Bld) 0.8 % 0-5 [facility] Erythrocyte distribution wid th (RBC) [Ratio]Ordered By: Rosa M Hampton on 11-07-2024 Erythrocyte distribution width (RBC) [Entitic vol] 42.6 fL 35.1-43.9 [facility] Erythrocyte distribution wid th ratioOrdered By: Rosa M Hampton on 11-07-2024 Erythrocyte distribution width (RBC) [Ratio] 12.7 % 11.6-14.6 [facility] Estimated glomerular filtrat ion rate (GFR) AmericanOrdered By: Rosa M Hampton on 11-07-2024 Estimated GFR (MDRD) Amer 105 mL/min >60 [facility] Comment on above: GFR Calc Glomerular filtration rate ( GFR) estimationOrdered By: Rosa M Hampton on 11-07-2024 Estimated GFR (MDRD) Non-Af Amer 87 mL/min >60 [facility] Comment on above: Non- GFR Calc Glucose Ql (U)Ordered By: Harpreet Hampton on 11-07-2024 Urine Glucose (UA) Normal mg/dl Normal [facility] Glucose measurementOrdered B y: Rosa M Hampton on 11-07-2024 Glucose [Mass/Vol] 101 mg/dL 74-106 [facility] Comment on above: Fasting Glucose resu lt from 100 to 125 mg/dL suggests IMPAIRED HOMEOSTASIS per A.D.A. criteria. Hematocrit Auto (Bld) [Volum e fraction]Ordered By: Rosa M Hampton on 11-07-2024 Hematocrit (Bld) [Volume fraction] 43.2 % 37-47 [facility] Hemoglobin measurementOrdere d By: Rosa M Hampton on 11-07-2024 Hemoglobin (Bld) [Mass/Vol] 14.7 g/dL 12.0-15.0 [facility] Immature granulocytes/100 WB C Auto (Bld)Ordered By: Rosa M Hampton on 11-07-2024 Immature granulocytes/100 WBC (Bld) 0.100 % 0.0-0.9 [facility] Comment on above: IG% - Immature Granu locytes (promyelocytes, myelocytes and metamyelocytes) > 1% indicates that a LEFT SHIFT is Present. International normalized rat io (INR) calculationOrdered By: Rosa M Hampton on 11-07-2024 INR Coag (Bld) [Relative time] 1.0 {INR} [facility] Interpretation of lupus anti coagulant assayOrdered By: Rosa M Hampton on 11-07-2024 Lupus Anticoagulant Interpretation Comment: . [facility] Comment on above: No lupus anticoagula nt was detected. Ketones Test strip Ql (U)Ord ered By: Rosa M Hampton on 11-07-2024 Ketones Ql (U) Negative Negative [facility] - Chemistry and C hemistry - challengeOrdered By: Rosa M Hampton on 11-07-2024 AST [Catalytic activity/Vol] 16 U/L 15-37 [facility] Lupus anticoagulant neutrali zation dilute phospholipid time in platelet poor plasmaOrdered By: Rosa M Hampton on 11-07-2024 Prothrombin Time Diluted 38.0 sec 0.0-47.6 [facility] Lupus anticoagulant-sensitiv e activated partial thromboplastin timeOrdered By: Rosa M Hampton on 11-07-2024 Lupus Anticoagulant APTT 32.4 sec 0.0-43.5 [facility] Lymphocytes Auto (Unsp spec) [#/Vol]Ordered By: Rosa M Hampton on 11-07-2024 Lymphocytes (Bld) [#/Vol] 3.32 10*3/uL 0.83-4.51 [facility] Lymphocytes/100 WBC Auto (Un sp spec)Ordered By: Rosa M Hampton on 11-07-2024 Lymphocytes/100 WBC (Bld) 46.0 % High 19-41 [facility] MCV (mean corpuscular volume ) determinationOrdered By: Rosa M Hampton on 11-07-2024 MCV (RBC) [Entitic vol] 92.1 fL 81-99 [facility] Mean corpuscular hemoglobin (MCH) determinationOrdered By: Rosa M Hampton on 11-07-2024 MCH (RBC) [Entitic mass] 31.3 pg 27.0-32.0 [facility] Mean corpuscular hemoglobin concentration (MCHC) determinationOrdered By: Rosa M Hampton on 12-09-2024 MCHC (RBC) [Mass/Vol] 34.0 g/dL 32-36 [facility] Mean platelet volume determi nationOrdered By: Rosa M Hampton on 11-07-2024 Platelet mean volume (Bld) [Entitic vol] 10.2 fL 6.2-12.0 [facility] Miscellaneous procedureOrder ed By: Rosa M Hampton on 11-07-2024 Miscellaneous Test Comment MAILED SPECIMEN [facility] Monocyte percentageOrdered B y: Rosa M Hampton on 11-07-2024 Monocytes/100 WBC (Bld) 4.6 % 0-10 [facility] Neutrophil percentageOrdered By: Rosa M Hampton on 11-07-2024 Neutrophils/100 WBC (Bld) 47.9 % 47-70 [facility] Nitrite Test strip Ql (U)Ord ered By: Rosa M Hampton on 11-07-2024 Nitrite Ql (U) Negative Negative [facility] Nucleated red blood cell per centageOrdered By: Rosa M Hampton on 11-07-2024 Nucleated RBC/100 WBC (Bld) [Ratio] 0 % 0-5 [facility] Partial Thromboplast Timeon 11-07-2024 aPTT Coag (Bld) [Time] 22.9 s Low 24.1-36.2 [facility] Comment on above: Performed By: #### L 100.0100, L300.3900, L501.0900, L4500.0100, L500.4050, L400.2011, L300.4310, L4500.1102 #### [facility] [address] [facility] [place], [address] Platelet countOrdered By: Harpreet Hampton on 11-07-2024 Platelets (Bld) [#/Vol] 203 10*3/uL 150-450 [facility] Potassium measurementOrdered By: Rosa M Hampton on 11-07-2024 Potassium [Moles/Vol] 3.9 mmol/L 3.5-5.1 [facility] Protein Test strip Ql (U)Ord ered By: Rosa M Hampton on 11-07-2024 Protein Ql (U) Negative Negative [facility] Protein+Creatinine Ratio,Uri neon 11-07-2024 PROT:CRE RATIO 102 mg/g CRE Normal 0-200 [facility] Comment on above: Performed By: #### L 100.0100, L300.3900, L501.0900, L4500.0100, L500.4050, L400.2011, L300.4310, L4500.1102 #### [facility] [address] [place], [address] Protein (U) [Mass/Vol] 17.5 mg/dL High <11.9 [facility] Comment on above: Performed By: #### L 100.0100, L300.3900, L501.0900, L4500.0100, L500.4050, L400.2011, L300.4310, L4500.1102 #### [facility] [address] [place], [address] UR CREAT 172.00 mg/dL Normal NO RANGE EST. [facility] Comment on above: Performed By: #### L 100.0100, L300.3900, L501.0900, L4500.0100, L500.4050, L400.2010, L300.4310, L4500.1102 #### [facility] [address] [place], [address] Protein/Creatinine (U) [Mass ratio]Ordered By: Rosa M Hampton on 11-07-2024 Urine Protein/Creatinine Ratio 102 mg/g CRE 0-200 [facility] Prothrombin Time w/INRon INR Coag (PPP) [Relative time] 1.0 {INR} Normal [facility] Comment on above: Performed By: #### L 100.0100, L300.3900, L501.0900, L4500.0100, L500.4050, L400.2011, L300.4310, L4500.1102 #### [facility] [address] [place], [address] PT Coag (PPP) [Time] 13.1 s Normal 11.7-14.9 [facility] Comment on above: Performed By: #### L 100.0100, L300.3900, L501.0900, L4500.0100, L500.4050, L400.2011, L300.4310, L4500.1102 #### [facility] [place], [address] Prothrombin timeOrdered By: Rosa M Hampton on 11-07-2024 PT Coag (PPP) [Time] 13.1 s 11.7-14.9 [facility] RBC Auto (Bld) [#/Vol]Ordere d By: Rosa M Hampton on 11-07-2024 RBC (Bld) [#/Vol] 4.69 10*6/uL 4.2-5.4 [facility] Random urine protein measure mentOrdered By: Rosa M Hampton on 11-07-2024 Protein (U) [Mass/Vol] 17.5 mg/dL High 0.0-11.8 [facility] Serum anion gap measurementO rdered By: Rosa M Hampton on 11-07-2024 Anion gap [Moles/Vol] 6 mmol/L 5-15 [facility] Serum globulin measurementOr dered By: Rosa M Hampton on 11-07-2024 Globulin (S) [Mass/Vol] 3.4 g/dL 2.2-4.2 [facility] Serum or plasma alanine salvador otransferase (ALT) measurementOrdered By: Rosa M Hampton on 11-07-2024 ALT [Catalytic activity/Vol] 26 U/L 13-56 [facility] Serum or plasma albumin sharon urement (mass/volume)Ordered By: Rosa M Hampton on 11-07-2024 Albumin [Mass/Vol] 4.0 g/dL 3.2-5.0 [facility] Serum or plasma alkaline fernando sphatase measurementOrdered By: Rosa M Hampton on 11-07-2024 ALP [Catalytic activity/Vol] 85 U/L 45-117 [facility] Serum or plasma calcium sharon urement (mass/volume)Ordered By: Rosa M Hampton on 11-07-2024 Calcium [Mass/Vol] 9.5 mg/dL 8.5-10.1 [facility] Serum or plasma creatinine m easurement (mass/volume)Ordered By: Rosa M Hampton on 11-07-2024 Creatinine [Mass/Vol] 0.72 mg/dL 0.55-1.02 [facility] Comment on above: The validity of the calculated GFR & GFRAA in patients over 70 years has not been determined. Clinical correlation is essential. Serum or plasma urea nitroge n measurement (mass/volume)Ordered By: Rosa M Hampton on 11-07-2024 Urea nitrogen [Mass/Vol] 28 mg/dL High 7-18 [facility] Service comment (Unsp spec) [Interp]Ordered By: Rosa M Hampton on 11-07-2024 Lupus Anticoagulant Comment Comment . [facility] Comment on above: Results do not indic ate the presence of a LupusAnticoagulant: abnormal high screening results (PTT-LA,dRVVT, mixing studies), may be due to medication (heparin,warfarin, aspirin), Factor inhibitors, anticardiolipinantibodies, or poor specimen integrity.Performed at: [address] [id number] Director: Omar Loredo MD, Phone: [phone] Sodium levelOrdered By: Mallory Hampton on 11-07-2024 Sodium [Moles/Vol] 138 mmol/L 136-145 [facility] Thrombin time Coag (PPP) [Ti me]Ordered By: Rosa M Hampton on 11-07-2024 Thrombin Time 19.4 sec 0.0-23.0 [facility] Total proteinOrdered By: Sania Hampton on 11-07-2024 Protein [Mass/Vol] 7.4 g/dL 6.4-8.2 [facility] Urinalysis, Routine (Dipstic k)on 11-07-2024 BILIRUBIN URINE Negative Normal Negative [facility] Comment on above: Order Comment: CLEAN CATCH Performed By: #### L 100.0100, L300.3900, L501.0900, L4500.0100, L500.4050, L400.2011, L300.4310, L4500.1102 #### [facility] [address] [place], [address] Clarity (U) Clear Normal Clear [facility] Comment on above: Order Comment: CLEAN CATCH Performed By: #### L 100.0100, L300.3900, L501.0900, L4500.0100, L500.4050, L400.2011, L300.4310, L4500.1102 #### [facility] [address] [place], [address] Color (U) Yellow Normal Yellow [facility] Comment on above: Order Comment: CLEAN CATCH Performed By: #### L 100.0100, L300.3900, L501.0900, L4500.0100, L500.4050, L400.2011, L300.4310, L4500.1102 #### [facility] [address] [place], [address] GLUCOSE, UR Normal Normal Normal [facility] Comment on above: Order Comment: CLEAN CATCH Performed By: #### L 100.0100, L300.3900, L501.0900, L4500.0100, L500.4050, L400.2011, L300.4310, L4500.1102 #### [facility] [address] [place], [address] KETONE UR Negative Normal Negative [facility] Comment on above: Order Comment: CLEAN CATCH Performed By: #### L 100.0100, L300.3900, L501.0900, L4500.0100, L500.4050, L400.2011, L300.4310, L4500.1102 #### [facility] [address] [place], [address] LEUK ESTERASE 100 /ul Abnormal Negative [facility] Comment on above: Order Comment: CLEAN CATCH Performed By: #### L 100.0100, L300.3900, L501.0900, L4500.0100, L500.4050, L400.2011, L300.4310, L4500.1102 #### [facility] [address] [place], [address] Nitrite Ql (U) Negative Normal Negative [facility] Comment on above: Order Comment: CLEAN CATCH Performed By: #### L 100.0100, L300.3900, L501.0900, L4500.0100, L500.4050, L400.2011, L300.4310, L4500.1102 #### [facility] [address] [place], [address] OCCULT BLOOD-UR 10 /ul Abnormal Negative [facility] Comment on above: Order Comment: CLEAN CATCH Performed By: #### L 100.0100, L300.3900, L501.0900, L4500.0100, L500.4050, L400.2011, L300.4310, L4500.1102 #### [facility] [address] [place], [address] pH UR 5.0 Normal 5.0 - 8.0 [facility] Comment on above: Order Comment: CLEAN CATCH Performed By: #### L 100.0100, L300.3900, L501.0900, L4500.0100, L500.4050, L400.2011, L300.4310, L4500.1102 #### [facility] [address] [place], [address] PROT DIPSTX Negative Normal Negative [facility] Comment on above: Order Comment: CLEAN CATCH Performed By: #### L 100.0100, L300.3900, L501.0900, L4500.0100, L500.4050, L400.2011, L300.4310, L4500.1102 #### [facility] [address] [place], [address] SP.GR. DIPSTX 1.025 Normal 1.002-1.030 [facility] Comment on above: Order Comment: CLEAN CATCH Performed By: #### L 100.0100, L300.3900, L501.0900, L4500.0100, L500.4050, L400.2011, L300.4310, L4500.1102 #### [facility] [address] [place], [place], [address] UROBILI Normal Normal Normal [facility] Comment on above: Order Comment: CLEAN CATCH Performed By: #### L 100.0100, L300.3900, L501.0900, L4500.0100, L500.4050, L400.2011, L300.4310, L4500.1102 #### [facility] [address] [place], [place], [address] Urine blood detectionOrdered By: Rosa M Hampton on 11-07-2024 Urine Occult Blood 10 /ul High Negative [facility] Urine clarityOrdered By: Sania Hampton on 11-07-2024 Clarity (U) Clear Clear [facility] Urine color determinationOrd ered By: Rosa M Hampton on 11-07-2024 Color (U) Yellow Yellow [facility] Urine creatinine measurement (mass/volume)Ordered By: Rosa M Hampton on 11-07-2024 Creatinine (U) [Mass/Vol] 172.00 mg/dL NO RANGE EST. [facility] Urine leukocyte esterase det ection by dipstickOrdered By: Rosa M Hampton on 11-07-2024 Leukocyte esterase Test strip Ql (U) 100 /ul High Negative [facility] Urine pHOrdered By: Rosa M darling on 11-07-2024 pH (U) 5.0 [pH] 5.0 - 8.0 [facility] Urine specific gravity measu rementOrdered By: Rosa M Hampton on 11-07-2024 Specific gravity (U) [Rel density] 1.025 1.002-1.030 [facility] Urobilinogen Ql (U)Ordered B y: Rosa M Hampton on 11-07-2024 Urine Urobilinogen Normal mg/dl Normal [facility] White blood cell (WBC) count Ordered By: Rosa M Hampton on 11-07-2024 WBC (Bld) [#/Vol] 7.2 10*3/uL 4.4-11.0 [facility] aPTT Coag (PPP) [Time]Ordere d By: Rosa M Hampton on 11-07-2024 aPTT Coag (Bld) [Time] 22.9 s Low 24.1-36.2 [facility] dRVVT Coag (PPP) [Time]Order ed By: Rosa M Hampton on 11-07-2024 Dilute Francois Viper Venom (Lupus) 37.5 sec 0.0-47.0 [facility] CNPNon 11-04-2024 CNPN Telephone (DENISSE) POLO ELLIS ([id number]) 1960 F Date Time Provider Department 11/04/24 LEIDA RUANO During your visit today, we recorded the following information about you: Leida Ruano APRN.CNP 11/04/2024 3:04 PM Signed Please let her know we received her mammogram results and the radiologist is recommending additional view of her right breast, please assist her to schedule. JESSICA Villafuerte [place], [place] 11/04/2024 3:23 PM Signed Pt reports she just had US and Diagnostic completed in JUN and she is not completing again. HARDEEP Garcia Rebekah, APRN.CNP 11/08/2024 2:53 PM Signed Noted. Leida Ruano APRN.CNP Allergies As of Date: 11/04/2024 (No Known Allergies) Date Reviewed: 10/14/2024 Reviewed by: Alden, Leida, DISTANCE LEARNING UNIT LEADER.PAINT DEPARTMENT SUPERVISOR - Fully Assessed Reason for Visit: Results [95] Appointment [186] Primary Visit Diagnosis:Abnormal mammogram [R92.8] Order(s): BREAST LTD RIGHT [[id number]] Order #: [id number] FUTURE [facility] DIAGNOSTIC RIGHT [[id number]] Order #: [id number] FUTURE Prescriptions as of 11/08/2024 - lactobacillus combination no.4 (PROBIOTIC) 3 billion cell cap Take by mouth. Takes gummy - clobetasol (TEMOVATE) 0.05 % cream Apply to affected area two times a day. - MULTIVITAMIN ORAL Take by mouth. - BIOTIN ORAL Take by mouth. 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 Patient states no personal history of breast cancer. Patient states no personal history of other cancers. COMPARISON STUDIES: The present examination has been compared to prior imaging studies dated 12/08/2023 (mammogram), 01/05/2024 (ultrasound), 01/05/2024 (mammogram), 07/26/2024 (ultrasound) and 07/26/2024 (mammogram). MAMMOGRAM TECHNIQUE: The study was acquired using full field digital technology and interpreted from soft copy. Digital Breast Tomosynthesis (DBT) images were obtained and used to assist in the interpretation of this examination. Computer-aided detection was utilized by the radiologist in the interpretation of this examination. MAMMOGRAM FINDINGS: The breasts are heterogeneously dense, which may obscure small masses. There is a focal asymmetry in the lower outer quadrant of the right breast. No suspicious masses, calcifications or other abnormalities are seen in the left breast. DIVISION OF RADIOLOGY Provider, [facility] - 11/04/2024 * * *Final Report* * * DATE OF EXAM: Nov 04 2024 7:18AM [facility] 0582 - [facility] SCREENING W ESEQUIEL / PROCEDURE REASON: multiple diagnoses * * * * Physician Interpretation * * * * RESULT: [place] [address] #[id number] - [facility] SCREENING W ESEQUIEL HISTORY: Patient is 64 years old and is seen for screening and is asymptomatic in both breasts. Patient states no personal history of breast cancer. Patient states no personal history of other cancers. COMPARISON STUDIES: The present examination has been compared to prior imaging studies dated 12/08/2023 (mammogram), 01/05/2024 (ultrasound), 01/05/2024 (mammogram), 07/26/2024 (ultrasound) and 07/26/2024 (mammogram). MAMMOGRAM TECHNIQUE: The study was acquired using full field digital technology and interpreted from soft copy. Digital Breast Tomosynthesis (DBT) images were obtained and used to assist in the interpretation of this examination. Computer-aided detection was utilized by the radiologist in the interpretation of this examination. MAMMOGRAM FINDINGS: The breasts are heterogeneously dense, which may obscure small masses. There is a focal asymmetry in the lower outer quadrant of the right breast. No suspicious masses, calcifications or other abnormalities are seen in the left breast. IMPRESSION IMPRESSION: Focal asymmetry in the right breast requires additional evaluation. Diagnostic mammogram is recommended. Please note that this finding was recommended for diagnostic follow up as per the 07/26/2024 exam. BI-RADS Category 0: Incomplete: Needs Additional Imaging Evaluation RISK: Based on the Tyrer-Cuzick (TC) risk assessment model, this patient has a 6.6% lifetime risk of developing breast cancer, meaning they are at average risk for developing breast cancer. However, this is only an estimate based on available history provided on the patient's questionnaire. We encourage all patients to talk with their providers about these results, further recommendations for managing breast health, and appropriate supplemental screening options if the patient has dense breast tissue. Interpreting Radiologist: Aleta Mills M.D. Electronically signed on: 11/04/2024 Origination Specialist: FEI Transcribe Date/Time: Nov 04 2024 7:00A Dictated by: ALETA MILLS MD This examination was interpreted and the report reviewed and electronically signed by: ALETA MILLS MD on Nov 04 2024 10:35AM EST [facility] Radiology Study observation (narrative) [facility] DBT Breast - bilateral scree ningOrdered By: [facility] Provider on 11-04-2024 [facility] CHICHO SCREENING W TOMOon 11-04 [facility]IC[facility] SCREENING W ESEQUIEL * * *Final Report* * * DATE OF EXAM: Nov 04 2024 7:18AM [facility] 0582 - [facility] SCREENING W ESEQUIEL / PROCEDURE REASON: multiple diagnoses * * * * Physician Interpretation * * * * RESULT: [place] [address] #[id number] - [facility] SCREENING W ESEQUIEL HISTORY: Patient is 64 years old and is seen for screening and is asymptomatic in both breasts. Patient states no personal history of breast cancer. Patient states no personal history of other cancers. COMPARISON STUDIES: The present examination has been compared to prior imaging studies dated 12/08/2023 (mammogram), 01/05/2024 (ultrasound), 01/05/2024 (mammogram), 07/26/2024 (ultrasound) and 07/26/2024 (mammogram). MAMMOGRAM TECHNIQUE: The study was acquired using full field digital technology and interpreted from soft copy. Digital Breast Tomosynthesis (DBT) images were obtained and used to assist in the interpretation of this examination. Computer-aided detection was utilized by the radiologist in the interpretation of this examination. MAMMOGRAM FINDINGS: The breasts are heterogeneously dense, which may obscure small masses. There is a focal asymmetry in the lower outer quadrant of the right breast. No suspicious masses, calcifications or other abnormalities are seen in the left breast. IMPRESSION: Focal asymmetry in the right breast requires additional evaluation. Diagnostic mammogram is recommended. Please note that this finding was recommended for diagnostic follow up as per the 07/26/2024 exam. BI-RADS Category 0: Incomplete: Needs Additional Imaging Evaluation RISK: Based on the Tyrer-Cuzick (TC) risk assessment model, this patient has a 6.6% lifetime risk of developing breast cancer, meaning they are at average risk for developing breast cancer. However, this is only an estimate based on available history provided on the patient's questionnaire. We encourage all patients to talk with their providers about these results, further recommendations for managing breast health, and appropriate supplemental screening options if the patient has dense breast tissue. Interpreting Radiologist: Aleta Mills M.D. Electronically signed on: 11/04/2024 Origination Specialist: FEI Transcribe Date/Time: Nov 04 2024 7:00A Dictated by: ALETA MILLS MD This examination was interpreted and the report reviewed and electronically signed by: ALETA MILLS MD on Nov 04 2024 10:35AM EST [id number] CN Normal [facility] 25(OH)D3 [facility] 2023 25-hydroxyvitamin D3 [Mass/Vol] 47.8 ng/mL Normal 31.0-80.0 [facility] Comment on above: Order Comment: Speci men Type: BLOOD SPECIMENOrdering Facility: [facility] Address: [address] [place] [address] Result Comment: Clas sification of 25 [place] Vitamin D status: Deficiency/Insufficiency: < or = 30 ng/ml. Sufficiency/Optimal Levels: 31-80 ng/mL Toxicity: > 100 ng/mL. Test performed by chemiluminescent immunoassay. Performed By: #### 1 989-3 ####[facility] [facility] [id number] [address] [id number] [address] [place] 25-hydroxyvitamin D3 [Mass/V ol]on 10-14-2024 Interpretation and review of laboratory results Normal [facility] The reference range interval was based on an analysis of samples from healthy adults and may not pertain to children from 0-18 years old. [facility] CBC panel Auto (Bld)on 10-14 Erythrocyte distribution width (RBC) [Ratio] 12.8 % 11.5 - 15.0 % [facility] Hematocrit (Bld) [Volume fraction] 43.9 % 36.0 - 46.0 % [facility] Hemoglobin (Bld) [Mass/Vol] 14.5 g/dL 11.5 - 15.5 g/dL [facility] Interpretation and review of laboratory results Normal [facility] MCH (RBC) [Entitic mass] 31.1 pg 26. 0 - 34.0 pg [facility] MCHC (RBC) [Mass/Vol] 33.0 g/dL 30.5 - 36.0 g/dL [facility] MCV (RBC) [Entitic vol] 94.2 fL 80.0 - 100.0 fL [facility] Nucleated RBC (Bld) [#/Vol] NINF [facility] Platelet mean volume (Bld) [Entitic vol] 10.5 fL 9.0 - 12.7 fL [facility] Platelets (Bld) [#/Vol] 211 10*3/uL [facility] RBC (Bld) [#/Vol] 4.66 10*6/uL 3.90 - 5.2 0 m/uL [facility] WBC (Bld) [#/Vol] 5.92 10*3/uL [facility] Erythrocyte distribution width (RBC) [Ratio] 12.8 % Normal 11.5-15.0 [facility] Comment on above: Order Comment: Speci men Type: BLOOD SPECIMENOrdering Facility: [facility] Address: [address] [place] [address] Performed By: #### 5 8410-2 ####[facility] [facility] [id number] [address] [place] Hematocrit (Bld) [Volume fraction] 43.9 % Normal 36.0-46.0 [facility] Comment on above: Order Comment: Speci men Type: BLOOD SPECIMENOrdering Facility: [facility] Address: [address] [place] [address] Performed By: #### 5 8410-2 ####[facility] [facility] [id number] [place] [address] [place] Hemoglobin (Bld) [Mass/Vol] 14.5 g/dL Normal 11.5-15.5 [facility] Comment on above: Order Comment: Speci men Type: BLOOD SPECIMENOrdering Facility: [facility] Address: [address] [place] [address] Performed By: #### 5 8410-2 ####[facility] [id number] [place] [address] [place] MCH (RBC) [Entitic mass] 31.1 pg Normal 26.0-34.0 [facility] Comment on above: Order Comment: Speci men Type: BLOOD SPECIMENOrdering Facility: [facility] Address: [address] [place] [address] Performed By: #### 5 8410-2 ####[facility] [id number] [place] [address] [place] MCHC (RBC) [Mass/Vol] 33.0 g/dL Normal 30.5-36.0 [facility] Comment on above: Order Comment: Speci men Type: BLOOD SPECIMENOrdering Facility: [facility] Address: [address] [place] [address] Performed By: #### 5 8410-2 ####[facility] [id number] [place] [address] [place] MCV (RBC) [Entitic vol] 94.2 fL Normal 80.0-100.0 C [facility] Comment on above: Order Comment: Speci men Type: BLOOD SPECIMENOrdering Facility: [facility] Address: [address] [place] [address] Performed By: #### 5 8410-2 ####[facility] [facility] [id number] [place] [address] [place] Nucleated RBC (Bld) [#/Vol] 10*3/uL Normal <0.01 [facility] Comment on above: Order Comment: Speci men Type: BLOOD SPECIMENOrdering Facility: [facility] Address: [address] [place] [address] Performed By: #### 5 8410-2 ####[place] [facility] [id number] [place] [address] [place] Platelet mean volume (Bld) [Entitic vol] 10.5 fL Normal 9.0-12.7 [facility] Comment on above: Order Comment: Speci men Type: BLOOD SPECIMENOrdering Facility: [facility] Address: [address] [place] [address] Performed By: #### 5 8410-2 ####[place] [facility] [id number] [place] [address] [place] Platelets (Bld) [#/Vol] 211 10*3/uL Normal 150-400 [facility] Comment on above: Order Comment: Speci men Type: BLOOD SPECIMENOrdering Facility: [facility] Address: [address] [place] [address] Performed By: #### 5 8410-2 ####[place] [facility] [id number] [place] [address] [place] RBC (Bld) [#/Vol] 4.66 10*6/uL Normal 3.90-5.20 [facility] Comment on above: Order Comment: Speci men Type: BLOOD SPECIMENOrdering Facility: [facility] Address: [address] [place] [address] Performed By: #### 5 8410-2 ####[place] [facility] [id number] [place] [id number] [place] WBC (Bld) [#/Vol] 5.92 10*3/uL Normal 3.70-11.00 [facility] Comment on above: Order Comment: Speci men Type: BLOOD SPECIMENOrdering Facility: [facility] Address: [address] [place] [address] Performed By: #### 5 8410-2 ####[facility] [facility] [id number] [facility] [place] [address] [place] CNOVon 10-14-2024 CNOV Office Visit (FAMPWS) POLO ELLIS ([id number]) 1960 F Date Time Provider Department 10/14/24 7:00 AM [facility] During your visit today, we recorded the following information about you: Pulse Respiration Blood pressure Weight 67/minute 16/minute 118/82 62.8 kg Height 1.65 m Leida Ruano APRN.CNP 10/18/2024 6:31 PM Signed Cutaneous LupuChief Complaint Patient presents with: Physical: Dx with Subacute cutaneous lupus, see notes in scanned docs, med list updated HPI Ayushmulugeta Ellis is a 64 year old female who presents here today for Above Complaints.. 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 Dx with this by [facility] in February 2024. Has never seen a figurine maker. Denies concerns or complaints today. Denies CP, SOB, palpitations, new or persistent h/a, n/v/d, difficulty swallowing, increased thirst or urination. Does have large reddish purple lupus rash to her back. Flares come and go, seems to be flared up this morning, is very itchy. Past medical history, appointments, medications, allergies reviewed. [...] EGD 12/14/2020 LAPAROSCOPY DIAGNOSTIC 11/30/1984 LEEP PROCEDURE (TALENT DEVELOPMENT COORDINATOR DEPT)_*[place] 11/30/2012 Family History FAMILY HISTORY Problem Relation Age of Onset Hypertension Mother other (dementia) Mother other (MVA) Father Diabetes Brother Hypertension Sister Diabetes Sister Cancer Sister Diabetes Paternal Grandmother Breast Cancer Sister Hypertension Sister Patient Allergies ALLERGIES No Known Allergies Current Medications Current Outpatient Medications on File Prior to Visit Medication Sig lactobacillus combination no.4 (PROBIOTIC) 3 billion cell cap Take by mouth. Takes gummy clobetasol (TEMOVATE) 0.05 % cream apply to affected area OF BACK twice a day for 2 weeks then take ... (REFER TO PRESCRIPTION NOTES). MULTIVITAMIN ORAL Take by mouth. BIOTIN ORAL Take by mouth. No current facility-administere d medications on file prior to visit. Social History Social History Tobacco Use Smoking status: Every Day Current packs/day: 0.00 Average packs/day: 1 pack/day for 42.0 years (42.0 ttl pk-yrs) Types: Cigarettes Start date: 1972 Last attempt to quit: 2014 Years since quittin.7 Smokeless tobacco: Never Tobacco comments: -4 years for quit so 38 pack years Substance Use Topics Alcohol use: Yes Alcohol/week: 0.0 - 1.3 standard drinks of alcohol Comment: occasionally Drug use: No Review of Symptoms REVIEW OF SYSTEMS See HPI, otherwise negative EXAM: BP 118/82 (BP Site: Left Arm, BP Position: Sitting, BP Cuff Size: Regular Adult) Pulse 67 Resp 16 Ht 165 cm (5' 4.96) Wt 62.8 kg (138 lb 6.4 oz) SpO2 100% BMI 23.06 kg/m? General Appearance: Well appearing, alert, in no acute distress, well-hydrated, well nourished.. Skin: large deep red/purple raised plaque-like rash to majority of back. Head: Normocephalic, no masses, lesions, tenderness or abnormalities. Eyes: Anicteric sclera. Pupils are equally round and reactive to light. Extraocular movements are intact. . Ears: External ears normal, canals clear. Nose/Sinuses: Nares normal, septum midline, mucosa normal, no drainage or sinus tenderness. Oropharynx: Lips, mucosa, and tongue normal, teeth and gums normal, oropharynx normal. Neck: Supple, no adenopathy; thyroid symmetric, normal size, no bruits. Back:no pain to palpation of vertebrae, good flexion and extension, good range of motion, no muscle tenderness, motor and sensory appear to be normal Lungs: Lungs clear to auscultation. No wheezing, rhonchi, rales.. Heart: RRR without murmur, gallop, or rubs. No ectopy. Abdomen: Normal abdominal exam, Abdomen soft, non-tender. Bowel sounds normal. No masses, organomegaly. Extremities: No deformities, edema, skin discoloration, clubbing or cyanosis. Good capillary refill. . Musculoskeletal: No joint swelling, deformity, or tenderness. Peripheral Pulses: Normal. Neurologic: Gait normal. Reflexes normal and symmetric. Sensation grossly intact.. Lymph Nodes: No cervical lymphadenopathy and No supraclavicular lymphadenopathy. Psychiatric: pleasant, cooperative. Health Maintenance List Depression Screening Never do (more content not included)... Normal [facility] 10-14-2024 [facility] Telephone (FAMMelbaWS) POLO ELLIS ([id number]) 1960 F Date Time Provider Department 10/14/24 LEIDA RUANO During your visit today, we recorded the following information about you: Leida Ruano APRN.[facility] 10/14/2024 7:38 AM Signed Please fax her rheum consult to Dr. Cleaning's office. Leida Ruano APRN.Marshall Hastings LPN 10/14/2024 10:55 AM Signed Referral and Office notes faxed as below. Allergies As of Date: 10/14/2024 (No Known Allergies) Date Reviewed: 10/14/2024 Reviewed by: Leida Ruano APRN.RADHA - Fully Assessed Reason for Visit: Consult [173] Prescriptions as of 10/14/2024 - lactobacillus combination no.4 (PROBIOTIC) 3 billion cell cap Take by mouth. Takes gummy - clobetasol (TEMOVATE) 0.05 % cream Apply to affected area two times a day. - MULTIVITAMIN ORAL Take by mouth. - BIOTIN ORAL Take by mouth. Problem List As Of Date 10/14/2024 Noted Resolved Tobacco abuse [Z72.0] 05/06/2013 Left shoulder pain [M25.512] 05/06/2013 Hypercholesterolemia [E78.00] 05/10/2013 Post-menopausal [Z78.0] 07/13/2013 Degenerative disc disease at L5-S1 level [M51.3*08/26/2019 Well adult exam [Z00.00] 12/15/2022 Hyperglycemia [R73.9] 12/19/2022 Elevated LFTs [R79.89] 12/19/2022 Cutaneous lupus erythematosus [L93.2] 10/14/2024 Encounter Status:Closed by MARSHALL DICK LPN on 10/14/24 Normal [facility] Comprehensive metabolic 2000 panelon 10-14-2024 Albumin [Mass/Vol] 4.4 g/dL 3.9 - 4.9 g/dL [facility] ALP [Catalytic activity/Vol] 91 U/L 34 - 123 U/L [facility] ALT [Catalytic activity/Vol] 35 U/L 7 - 38 U/L [facility] Anion gap [Moles/Vol] 12 mmol/L 8 - 15 mmol/L [facility] AST [Catalytic activity/Vol] 31 U/L 13 - 35 U/L [facility] Bilirubin [Mass/Vol] 0.2 mg/dL 0.2 - 1 .3 mg/dL [facility] Calcium [Mass/Vol] 9.7 mg/dL 8.5 - 10. 2 mg/dL [facility] Chloride [Moles/Vol] 106 mmol/L 98 - 10 7 mmol/L [facility] CO2 [Moles/Vol] 23 mmol/L 22 - 30 mmol/L [facility] Creatinine [Mass/Vol] 0.78 mg/dL 0.58 - 0.96 mg/dL [facility] GFR/1.73 sq M.predicted among non-blacks MDRD (S/P/Bld) [Vol rate/Area] 85 mL/min/{1.73_m2} - PINF [facility] Comment on above: Estimated Glomerular Filtration Rate (eGFR) is calculated using the 2020 CKD-EPI creatinine equation. This equation utilizes serum creatinine, sex, and age as parameters. The creatinine assay has traceable calibration to isotope dilution-mass spectrometry. Refer to KDIGO guidelines for clinical interpretation. In patients with unstable renal function, e.g. those with acute kidney injury, the eGFR may not accurately reflect actual GFR. Glucose [Mass/Vol] 106 mg/dL High 74 - 99 mg/dL [facility] Comment on above: The [place] Diabete s Association (ADA) provides guidance for cutoff values for fasting glucose and random glucose. The ADA defines fasting as no caloric intake for at least 8 hours. Fasting plasma glucose results between 100 to 125 mg/dL indicate increased risk for diabetes (prediabetes). Fasting plasma glucose results greater than or equal to 126 mg/dL meet the criteria for diagnosis of diabetes. In the absence of unequivocal hyperglycemia, results should be confirmed by repeat testing. In a patient with classic symptoms of hyperglycemia or hyperglycemic crisis, random plasma glucose results greater than or equal to 200 mg/dL meet the criteria for diagnosis of diabetes. Reference: Standards of Medical Care in Diabetes 2016, [place] Diabetes Association. Diabetes Care. 2016.39(Suppl 1). Potassium [Moles/Vol] 5.2 mmol/L High 3.7 - 5.1 mmol/L [facility] Protein [Mass/Vol] 6.8 g/dL 6.3 - 8.0 g/dL [facility] Sodium [Moles/Vol] 141 mmol/L 136 - 144 mmol/L [facility] Urea nitrogen [Mass/Vol] 24 mg/dL High 7 - 21 mg/d L [facility] Albumin [Mass/Vol] 4.4 g/dL Normal 3.9-4.9 [facility] Comment on above: Order Comment: Speci men Type: BLOOD SPECIMENOrdering Facility: [facility] Address: [address] [place] [address] Performed By: #### 2 132-9, 90251-9, 86433-4, 6-3 ####[place] [facility] [id number] [place] [address] [place] ALP [Catalytic activity/Vol] 91 U/L Normal 34-123 [facility] Comment on above: Order Comment: Speci men Type: BLOOD SPECIMENOrdering Facility: [facility] Address: [address] [place] [address] Performed By: #### 2 132-9, 19425-0, 72070-9, 6-3 ####[place] [facility] [id number] [place] [address] [place] ALT [Catalytic activity/Vol] 35 U/L Normal 7-38 [facility] Comment on above: Order Comment: Speci men Type: BLOOD SPECIMENOrdering Facility: [facility] Address: [address] [place] [address] Performed By: #### 2 132-9, 92788-3, 29603-6, 6-3 ####[place] [facility] [id number] [place] [address] [place] Anion gap [Moles/Vol] 12 mmol/L Normal 8-15 [facility] Comment on above: Order Comment: Speci men Type: BLOOD SPECIMENOrdering Facility: [facility] Address: [address] [place] [address] Performed By: #### 2 132-9, 05115-0, 28472-6, 6-3 ####[place] [facility] [id number] [place] [id number] [place] AST [Catalytic activity/Vol] 31 U/L Normal 13-35 [facility] Comment on above: Order Comment: Speci men Type: BLOOD SPECIMENOrdering Facility: [facility] Address: [address] [place], [place] [address] Performed By: #### 2 132-9, 19577-3, 35201-3, 6-3 ####[place] [facility] [id number] [address] [address] [place] Bilirubin [Mass/Vol] 0.2 mg/dL Normal 0.2-1.3 [facility] Comment on above: Order Comment: Speci men Type: BLOOD SPECIMENOrdering Facility: [facility] Address: [address] [place] [address] Performed By: #### 2 132-9, 04543-1, 63508-1, 6-3 ####[place] [facility] [id number] [place] [address] [place] Calcium [Mass/Vol] 9.7 mg/dL Normal 8.5-10.2 [facility] Comment on above: Order Comment: Speci men Type: BLOOD SPECIMENOrdering Facility: [facility] Address: [address] [place] [address] Performed By: #### 2 132-9, 11933-9, 15328-7, 6-3 ####[place] [facility] [id number] [place] [address] [place] Chloride [Moles/Vol] 106 mmol/L Normal 98-107 [facility] Comment on above: Order Comment: Speci men Type: BLOOD SPECIMENOrdering Facility: [facility] Address: [address] [place] [address] Performed By: #### 2 132-9, 17015-8, 67405-4, 3016-3 ####[place] [facility] [id number] [address] [address] [place] CO2 [Moles/Vol] 23 mmol/L Normal 22-30 [facility] Comment on above: Order Comment: Speci men Type: BLOOD SPECIMENOrdering Facility: [facility] Address: [address] [id number] Performed By: #### 2 132-9, 25105-5, 37997-9, 6-3 ####[place] [facility] [id number] [address] [address] [place] Creatinine [Mass/Vol] 0.78 mg/dL Normal 0.58-0.96 [facility] Comment on above: Order Comment: Speci men Type: BLOOD SPECIMENOrdering Facility: [facility] Address: [address] [place] [address] Performed By: #### 2 132-9, 60198-6, 74831-3, 6-3 ####[place] [facility] [id number] [place] [address] [place] Creatinine and Glomerular filtration rate.predicted panel (S/P/Bld) 85 mL/min/1.73m??? Normal >=60 [facility] Comment on above: Order Comment: Speci men Type: BLOOD SPECIMENOrdering Facility: [facility] Address: [address] [place] [address] Result Comment: Aundrea mated Glomerular Filtration Rate (eGFR) is calculated using the 2020 CKD-EPI creatinine equation. This equation utilizes serum creatinine, sex, and age as parameters. The creatinine assay has traceable calibration to isotope dilution-mass spectrometry. Refer to KDIGO guidelines for clinical interpretation. In patients with unstable renal function, e.g. those with acute kidney injury, the eGFR may not accurately reflect actual GFR. Performed By: #### 2 132-9, 76314-5, 71181-3, 6-3 ####[place] [facility] [id number] [place] [id number] [place] Glucose [Mass/Vol] 106 mg/dL High 74-99 [facility] Comment on above: Order Comment: Speci men Type: BLOOD SPECIMENOrdering Facility: [facility] Address: [address] [place] [address] Result Comment: The [place] Diabetes Association (ADA) provides guidance for cutoff values for fasting glucose and random glucose. The ADA defines fasting as no caloric intake for at least 8 hours. Fasting plasma glucose results between 100 to 125 mg/dL indicate increased risk for diabetes (prediabetes). Fasting plasma glucose results greater than or equal to 126 mg/dL meet the criteria for diagnosis of diabetes. In the absence of unequivocal hyperglycemia, results should be confirmed by repeat testing. In a patient with classic symptoms of hyperglycemia or hyperglycemic crisis, random plasma glucose results greater than or equal to 200 mg/dL meet the criteria for diagnosis of diabetes. Reference: Standards of Medical Care in Diabetes 2016, [place] Diabetes Association. Diabetes Care. 2016.39(Suppl 1). Performed By: #### 2 132-9, 71600-2, 63576-1, 6-3 ####[place] [facility] [id number] [place] [address] [place] Potassium [Moles/Vol] 5.2 mmol/L High 3.7-5.1 [facility] Comment on above: Order Comment: Speci men Type: BLOOD SPECIMENOrdering Facility: [facility] Address: [address] [place] [address] Performed By: #### 2 132-9, 68176-3, 34518-4, 6-3 ####[place] [facility] [id number] [place] [id number] [place] Protein [Mass/Vol] 6.8 g/dL Normal 6.3-8.0 [facility] Comment on above: Order Comment: Speci men Type: BLOOD SPECIMENOrdering Facility: [facility] Address: [address] [place] [address] Performed By: #### 2 132-9, 21747-1, 70434-8, 6-3 ####[place] [facility] [id number] [place] [id number] [place] Sodium [Moles/Vol] 141 mmol/L Normal 136-144 [facility] Comment on above: Order Comment: Speci men Type: BLOOD SPECIMENOrdering Facility: [facility] Address: [address] [place] [address] Performed By: #### 2 132-9, 71320-6, 41795-0, 3016-3 ####[place] [facility] [id number] [place] [id number] [place] Urea nitrogen [Mass/Vol] 24 mg/dL High 7-21 [facility] Comment on above: Order Comment: Speci men Type: BLOOD SPECIMENOrdering Facility: [facility] Address: [address] [place] [address] Performed By: #### 2 132-9, 01986-5, 67988-2, 3016-3 ####[place] [facility] [id number] [place] [address] [place] HbA1c (Bld)on 10-14-2024 Average glucose Estimated from glycated hemoglobin (Bld) [Mass/Vol] 114 mg/dL [facility] Comment on above: eAG: (Estimated aver age glucose) is a calculated value from HgbA1c and is in store representative of the average blood glucose level in the last 2-3 month period. HbA1c (Bld) [Mass fraction] 5.6 % 4.3 - 5.6 % [facility] Comment on above: [place] Diabetes As sociation guidelines indicate that patients with HgbA1c in the range 5.7-6.4% are at increased risk for development of diabetes, and intervention by lifestyle modification may be beneficial. HgbA1c greater or equal to 6.5% is considered diagnostic of diabetes. [facility] Average glucose Estimated from glycated hemoglobin (Bld) [Mass/Vol] 114 mg/dL Normal [facility] Comment on above: Order Comment: Speci men Type: BLOOD SPECIMENOrdering Facility: [facility] Address: [address] [place] [address] Result Comment: eAG: (Estimated average glucose) is a calculated value from HgbA1c and is in store representative of the average blood glucose level in the last 2-3 month period. Performed By: #### 5 5454-3 ####[place] [facility] [id number] [place] [address] [place] HbA1c (Bld) [Mass fraction] 5.6 % Normal 4.3-5.6 [facility] Comment on above: Order Comment: Speci men Type: BLOOD SPECIMENOrdering Facility: [facility] Address: [address] [place] [address] Result Comment: [place] Diabetes Association guidelines indicate that patients with HgbA1c in the range 5.7-6.4% are at increased risk for development of diabetes, and intervention by lifestyle modification may be beneficial. HgbA1c greater or equal to 6.5% is considered diagnostic of diabetes. Performed By: #### 5 5454-3 ####[place] [facility] [id number] [place] [address] [place] Lipid 1996 panelon 4 Cholesterol [Mass/Vol] 208 mg/dL High NINF - 200 mg/dL [facility] Comment on above: <200 mg/dL, Desirabl e 200-239 mg/dL, Borderline high >239 mg/dL, High Cholesterol in HDL [Mass/Vol] 66 mg/dL 39 - PINF mg/dL [facility] Comment on above: 40-59 mg/dL, Accepta ble >59 mg/dL, High: Negative risk factor for coronary heart disease <40 mg/dL, Low: Positive risk factor for coronary heart disease Cholesterol in LDL [Mass/Vol] 129 mg/dL High NINF - 100 mg/dL [facility] Comment on above: <100 mg/dL, Optimal 100-129 mg/dL, Near optimal/above optimal 130-159 mg/dL, Borderline high 160-189 mg/dL, High >189 mg/dL, Very high Secondary prevention optimal LDL Cholesterol levels are recommended to be < 70 mg/dL Cholesterol in LDL/Cholesterol in HDL [Mass ratio] 1.95 {ratio} NINF - 2.54 [facility] Comment on above: Reference: 1. National Cholesterol Education Program ATP III Guideline At-A-Glance Quick Desk Reference: National Heart, Lung, and Blood Reliance. National Institutes of Health. 2001: NIH Publication No. 01-3305. 2. An International Atherosclerosis Society position paper: global recommendations for the management of dyslipidemia: executive summary, Atherosclerosis. 2014: 232(2):410-413. Cholesterol in VLDL [Mass/Vol] 13 mg/dL NINF - 30 mg/dL [facility] Cholesterol non HDL [Mass/Vol] 142 mg/dL High NINF - 130 mg/dL [facility] Comment on above: <130 mg/dL, Optimal 130-159 mg/dL, Near optimal/above optimal 160-189 mg/dL, Borderline high 190-219 mg/dL, High >219 mg/dL, Very high Secondary prevention optimal non HDL Cholesterol levels are recommended to be <100 mg/dL Cholesterol.total/Choles terol in HDL [Mass ratio] 3.15 {ratio} NINF - 5.10 [facility] Fasting Time 12 hrs [facility] Triglyceride [Mass/Vol] 64 mg/dL NINF - 150 mg/dL [facility] Comment on above: <150 mg/dL, Normal 150-199 mg/dL, Borderline high 200-499 mg/dL, High >499 mg/dL, Very high Cholesterol [Mass/Vol] 208 mg/dL High <200 [facility] Comment on above: Order Comment: Wilfred ledesma Type: BLOOD SPECIMENOrdering Facility: [facility] Address: [address] [place] [address] Result Comment: <200 mg/dL, Desirable 200-239 mg/dL, Borderline high >239 mg/dL, High Performed By: #### 2 132-9, 15766-2, 98537-8, 3016-3 ####[place] [facility] [id number] [facility] [id number] STATES OF [facility] Cholesterol in HDL [Mass/Vol] 66 mg/dL Normal >39 [facility] Comment on above: Order Comment: Wilfred ledesma Type: BLOOD SPECIMENOrdering Facility: [facility] Address: [address] [place] [address] Result Comment: 40-5 9 mg/dL, Acceptable >59 mg/dL, High: Negative risk factor for coronary heart disease <40 mg/dL, Low: Positive risk factor for coronary heart disease Performed By: #### 2 132-9, 36018-7, 35201-8, 3016-3 ####[facility] [id number] [address] [address] [place] Cholesterol in LDL [Mass/Vol] 129 mg/dL High <100 [facility] Comment on above: Order Comment: Speci men Type: BLOOD SPECIMENOrdering Facility: [facility] Address: [address] [place] [address] Result Comment: <100 mg/dL, Optimal 100-129 mg/dL, Near optimal/above optimal 130-159 mg/dL, Borderline high 160-189 mg/dL, High >189 mg/dL, Very high Secondary prevention optimal LDL Cholesterol levels are recommended to be < 70 mg/dL Performed By: #### 2 132-9, 09366-6, 77136-5, 6-3 ####[place] [facility] [id number] [address] [address] [place] Cholesterol in LDL/Cholesterol in HDL [Mass ratio] 1.95 {ratio} Normal <2.54 [facility] Comment on above: Order Comment: Speci men Type: BLOOD SPECIMENOrdering Facility: [facility] Address: [address] [place] [address] Result Comment: Buster davidson: 1. National Cholesterol Education Program ATP III Guideline At-A-Glance Quick Desk Reference: National Heart, Lung, and Blood Reliance. National Institutes of Health. 2001: NIH Publication No. 01-3305. 2. An International Atherosclerosis Society position paper: global recommendations for the management of dyslipidemia: executive summary, Atherosclerosis. 2014: 232(2):410-413. Performed By: #### 2 132-9, 89673-7, 45983-5, 6-3 ####[place] [facility] [id number] [address] [address] [place] Cholesterol in VLDL [Mass/Vol] 13 mg/dL Normal <30 [facility] Comment on above: Order Comment: Speci men Type: BLOOD SPECIMENOrdering Facility: [facility] Address: [address] [place] [address] Performed By: #### 2 132-9, 34285-0, 98938-3, 6-3 ####[place] [facility] [id number] [address] [address] [place] Cholesterol non HDL [Mass/Vol] 142 mg/dL High <130 [facility] Comment on above: Order Comment: Speci men Type: BLOOD SPECIMENOrdering Facility: [facility] Address: [address] [place] [address] Result Comment: <130 mg/dL, Optimal 130-159 mg/dL, Near optimal/above optimal 160-189 mg/dL, Borderline high 190-219 mg/dL, High >219 mg/dL, Very high Secondary prevention optimal non HDL Cholesterol levels are recommended to be <100 mg/dL Performed By: #### 2 132-9, 02442-4, 57948-3, 6-3 ####[place] [facility] [id number] [place] [address] [place] Cholesterol.total/Choles terol in HDL [Mass ratio] 3.15 {ratio} Normal <5.10 [facility] Comment on above: Order Comment: Speci men Type: BLOOD SPECIMENOrdering Facility: [facility] Address: [address] [place] [address] Performed By: #### 2 132-9, 36432-3, 61506-9, 6-3 ####[place] [facility] [id number] [place] [id number] [place] FASTING TIME 12 hrs Normal [facility] Comment on above: Order Comment: Speci men Type: BLOOD SPECIMENOrdering Facility: [facility] Address: [address] [place] [address] Performed By: #### 2 132-9, 17676-7, 41061-5, 6-3 ####[place] [facility] [id number] [address] [address] [place] Triglyceride [Mass/Vol] 64 mg/dL Normal <150 [facility] Comment on above: Order Comment: Speci men Type: BLOOD SPECIMENOrdering Facility: [facility] Address: [address] [place] [address] Result Comment: <150 mg/dL, Normal 150-199 mg/dL, Borderline high 200-499 mg/dL, High >499 mg/dL, Very high Performed By: #### 2 132-9, 31439-8, 65343-0, 3016-3 ####[place] [facility] [id number] [place] [address] [place] No Panel Informationon 10-14 Interpretation and review of laboratory results Normal [facility] Interpretation and review of laboratory results Abnormal [facility] THYROID STIMULATING HORMONEo n 10-14-2024 TSH Qn 1.380 m[IU]/L [facility] TSH SerPl-aCncon 10-14-2024 TSH Qn 1.380 m[IU]/L Normal 0.270-4.200 [facility] Comment on above: Order Comment: Speci men Type: BLOOD SPECIMENOrdering Facility: [facility] Address: [address] [place] [address] Performed By: #### 2 132-9, 50341-5, 87124-5, [facility]6-3 ####[place] [facility] [id number] [place] [address] [place] VITAMIN B12on 10-14-2024 Cobalamin (Vitamin B12) [Mass/Vol] 847 pg/mL 232 - 1245 pg/mL [facility] VITAMIN D 25 HYDROXYon 10-14 25-hydroxyvitamin D3 [Mass/Vol] 47.8 ng/mL 31.0 - 80.0 ng/mL [facility] Comment on above: Classification of 25 OH Vitamin D status: Deficiency/Insufficiency: < or = 30 ng/ml. Sufficiency/Optimal Levels: 31-80 ng/mL Toxicity: > 100 ng/mL. Test performed by chemiluminescent immunoassay. Vit B12 SerPl-mCncon 024 Cobalamin (Vitamin B12) [Mass/Vol] 847 pg/mL Normal 232-1245 [facility] Comment on above: Order Comment: Speci men Type: BLOOD SPECIMENOrdering Facility: [facility] Address: [address] [place] [address] Performed By: #### 2 132-9, 89718-7, 07050-1, 3016-3 ####[place] [facility] [id number] [address] [id number] [address] [place] DBT Breast - right diagnosti c for implanton 07-26-2024 * * *Final Report* * * DATE OF EXAM: Jul 26 2024 3:06PM [facility] 0629 - [place] DIAG W ESEQUIEL RT / PROCEDURE REASON: Abnormal finding on breast imaging * * * * Physician Interpretation * * * * RESULT: #[id number] - [facility] DIAG W ESEQUIEL RT #[id number] - [facility] US BREAST LTD RT UNILATERAL RIGHT DIGITAL DIAGNOSTIC MAMMOGRAM TOMOSYNTHESIS WITH CAD: 07/26/2024 HISTORY: Abnormal Finding On Breast Imaging / Short term follow up right breast.-Abnormal Mammogram/ Patient did not have biopsy/ 6 month follow up /priors available for comparison Abnormal Finding On Breast Imaging. RESULT: TECHNIQUE: The study was acquired using full field digital technology and interpreted from soft copy. Digital Breast Tomosynthesis (DBT) images were obtained and used to assist in the interpretation of this examination. Current study was also evaluated with a Computer Aided Detection (CAD). Comparison is made to exams dated: 01/05/2024 mammogram, 12/08/2023 mammogram, and 05/01/2021 mammogram - [facility]. The right breast is heterogeneously dense, which may obscure small masses. There is an 8 mm oval focal asymmetry in the right breast at 10 o'clock posterior depth. This is not significantly changed. No other significant masses or calcifications are seen in the breast. DIVISION OF RADIOLOGY Provider, [facility] - 07/26/2024 * * *Final Report* * * DATE OF EXAM: Jul 26 2024 3:06PM [facility] 0629 - [place] DIAG W ESEQUIEL RT / PROCEDURE REASON: Abnormal finding on breast imaging * * * * Physician Interpretation * * * * RESULT: #[id number] - [facility] DIAG W ESEQUIEL RT #[id number] - [facility] US BREAST LTD RT UNILATERAL RIGHT DIGITAL DIAGNOSTIC MAMMOGRAM TOMOSYNTHESIS WITH CAD: 07/26/2024 HISTORY: Abnormal Finding On Breast Imaging / Short term follow up right breast.-Abnormal Mammogram/ Patient did not have biopsy/ 6 month follow up /priors available for comparison Abnormal Finding On Breast Imaging. RESULT: TECHNIQUE: The study was acquired using full field digital technology and interpreted from soft copy. Digital Breast Tomosynthesis (DBT) images were obtained and used to assist in the interpretation of this examination. Current study was also evaluated with a Computer Aided Detection (CAD). Comparison is made to exams dated: 01/05/2024 mammogram, 12/08/2023 mammogram, and 05/01/2021 mammogram - [facility]. The right breast is heterogeneously dense, which may obscure small masses. There is an 8 mm oval focal asymmetry in the right breast at 10 o'clock posterior depth. This is not significantly changed. No other significant masses or calcifications are seen in the breast. IMPRESSION IMPRESSION: PROBABLY BENIGN The 8 mm oval focal asymmetry in the right breast is probably benign. LIMITED ULTRASOUND OF RIGHT BREAST: 07/26/2024 RESULT: Comparison is made to exams dated: 01/05/2024 mammogram, 12/08/2023 mammogram, and 05/01/2021 mammogram - [facility]. Color flow and real-time ultrasound of the right breast 10 o'clock region were performed. Malone scale images of the real-time examination were reviewed. There is a 1.1 cm x 0.4 cm x 0.8 cm normal lymph node in the right breast at 10 o'clock posterior depth. This normal lymph node is hypoechoic with fatty hilum. This correlates with mammography findings. IMPRESSION: PROBABLY BENIGN The 1.1 cm x 0.4 cm x 0.8 cm normal lymph node in the right breast is probably benign. A follow-up mammogram and an ultrasound in 6 months is recommended to demonstrate stability. Mariah campa/viola:07/26/2024 15:31:25 Multiple national specialty organizations have released breast cancer screening guidelines for women at average risk for developing breast cancer - guidelines that are based on both evidence and opinion, yet differ on when to start and how often to screen for breast cancer. With representation from Breast Imaging, Internal Medicine, Women's Health, Family Medicine, and Medical/Surgical Oncology, the [facility] has carefully reviewed the data and reached the following consensus: 1) All women should engage in shared decision-making with their providers to decide when to start and how often to screen; 2) All women should have the opportunity to start screening mammography at age 40; 3) For women ages 45-55, we recommend annual screening mammograms; 4) For women ages 55 and over, we support both the transition from an annual to a biennial interval if this aligns more with patient's values and preferences, or continuation with annual screening; 5) All women should discuss with their providers when to stop screening mammograms. Wrapper And Preserver(s): Anamika Magana, [facility]; Lesley Valiente [facility] OVERALL STUDY BIRADS: Category 3: Probably Benign Origination Specialist: Viola Transcrideedee Date/Time: Jul 26 2024 2:35P Dictated by: MARIAH HILL MD This examination was interpreted and the report reviewed and electronically signed by: MARIAH HILL MD on Jul 26 2024 3:31PM EST [facility] DIAG W ESEQUIEL RTon 024 [facility] W ESEQUIEL RT * * *Final Report* * * DATE OF EXAM: Jul 26 2024 3:06PM [facility] 0629 - [place] DIAG W ESEQUIEL RT / PROCEDURE REASON: Abnormal finding on breast imaging * * * * Physician Interpretation * * * * RESULT: #[id number] - [facility] DIAG W ESEQUIEL RT #[id number] - [facility] BREAST LTD RT UNILATERAL RIGHT DIGITAL DIAGNOSTIC MAMMOGRAM TOMOSYNTHESIS WITH CAD: 07/26/2024 HISTORY: Abnormal Finding On Breast Imaging / Short term follow up right breast.-Abnormal Mammogram/ Patient did not have biopsy/ 6 month follow up /priors available for comparison Abnormal Finding On Breast Imaging. RESULT: TECHNIQUE: The study was acquired using full field digital technology and interpreted from soft copy. Digital Breast Tomosynthesis (DBT) images were obtained and used to assist in the interpretation of this examination. Current study was also evaluated with a Computer Aided Detection (CAD). Comparison is made to exams dated: 01/05/2024 mammogram, 12/08/2023 mammogram, and 05/01/2021 mammogram - [facility]. The right breast is heterogeneously dense, which may obscure small masses. There is an 8 mm oval focal asymmetry in the right breast at 10 o'clock posterior depth. This is not significantly changed. No other significant masses or calcifications are seen in the breast. IMPRESSION: PROBABLY BENIGN The 8 mm oval focal asymmetry in the right breast is probably benign. LIMITED ULTRASOUND OF RIGHT BREAST: 07/26/2024 RESULT: Comparison is made to exams dated: 01/05/2024 mammogram, 12/08/2023 mammogram, and 05/01/2021 mammogram - [facility]. Color flow and real-time ultrasound of the right breast 10 o'clock region were performed. Malone scale images of the real-time examination were reviewed. There is a 1.1 cm x 0.4 cm x 0.8 cm normal lymph node in the right breast at 10 o'clock posterior depth. This normal lymph node is hypoechoic with fatty hilum. This correlates with mammography findings. IMPRESSION: PROBABLY BENIGN The 1.1 cm x 0.4 cm x 0.8 cm normal lymph node in the right breast is probably benign. A follow-up mammogram and an ultrasound in 6 months is recommended to demonstrate stability. Mariah campa/viola:07/26/2024 15:31:25 Multiple national specialty organizations have released breast cancer screening guidelines for women at average risk for developing breast cancer - guidelines that are based on both evidence and opinion, yet differ on when to start and how often to screen for breast cancer. With representation from Breast Imaging, Internal Medicine, Women's Health, Family Medicine, and Medical/Surgical Oncology, the [facility] has carefully reviewed the data and reached the following consensus: 1) All women should engage in shared decision-making with their providers to decide when to start and how often to screen; 2) All women should have the opportunity to start screening mammography at age 40; 3) For women ages 45-55, we recommend annual screening mammograms; 4) For women ages 55 and over, we support both the transition from an annual to a biennial interval if this aligns more with patient's values and preferences, or continuation with annual screening; 5) All women should discuss with their providers when to stop screening mammograms. Wrapper And Preserver(s): Anamika Magana [facility]; Lesley Valiente, [facility] OVERALL STUDY BIRADS: Category 3: Probably Benign Origination Specialist: Viola Transcrideedee Date/Time: Jul 26 2024 2:35P Dictated by: MARIAH HILL MD This examination was interpreted and the report reviewed and electronically signed by: MARIAH HILL MD on Jul 26 2024 3:31PM EST [id number] CN Normal [facility] US BREAST LTD RTon 07-26 [facility] US BREAST LTD RT * * *Final Report* * * DATE OF EXAM: Jul 26 2024 3:23PM [facility] 0594 - [facility] US BREAST LTD RT / PROCEDURE REASON: Abnormal finding on breast imaging * * * * Physician Interpretation * * * * #[id number] - [facility] DIAG W ESEQUIEL RT #[id number] - [facility] US BREAST LTD RT UNILATERAL RIGHT DIGITAL DIAGNOSTIC MAMMOGRAM TOMOSYNTHESIS WITH CAD: 07/26/2024 HISTORY: Abnormal Finding On Breast Imaging / Short term follow up right breast.-Abnormal Mammogram/ Patient did not have biopsy/ 6 month follow up /priors available for comparison Abnormal Finding On Breast Imaging. RESULT: TECHNIQUE: The study was acquired using full field digital technology and interpreted from soft copy. Digital Breast Tomosynthesis (DBT) images were obtained and used to assist in the interpretation of this examination. Current study was also evaluated with a Computer Aided Detection (CAD). Comparison is made to exams dated: 01/05/2024 mammogram, 12/08/2023 mammogram, and 05/01/2021 mammogram - [facility]. The right breast is heterogeneously dense, which may obscure small masses. There is an 8 mm oval focal asymmetry in the right breast at 10 o'clock posterior depth. This is not significantly changed. No other significant masses or calcifications are seen in the breast. IMPRESSION: PROBABLY BENIGN The 8 mm oval focal asymmetry in the right breast is probably benign. LIMITED ULTRASOUND OF RIGHT BREAST: 07/26/2024 RESULT: Comparison is made to exams dated: 01/05/2024 mammogram, 12/08/2023 mammogram, and 05/01/2021 mammogram - [facility]. Color flow and real-time ultrasound of the right breast 10 o'clock region were performed. Malone scale images of the real-time examination were reviewed. There is a 1.1 cm x 0.4 cm x 0.8 cm normal lymph node in the right breast at 10 o'clock posterior depth. This normal lymph node is hypoechoic with fatty hilum. This correlates with mammography findings. IMPRESSION: PROBABLY BENIGN The 1.1 cm x 0.4 cm x 0.8 cm normal lymph node in the right breast is probably benign. A follow-up mammogram and an ultrasound in 6 months is recommended to demonstrate stability. Mariah campa/viola:07/26/2024 15:31:25 Multiple national specialty organizations have released breast cancer screening guidelines for women at average risk for developing breast cancer - guidelines that are based on both evidence and opinion, yet differ on when to start and how often to screen for breast cancer. With representation from Breast Imaging, Internal Medicine, Women's Health, Family Medicine, and Medical/Surgical Oncology, the [facility] has carefully reviewed the data and reached the following consensus: 1) All women should engage in shared decision-making with their providers to decide when to start and how often to screen; 2) All women should have the opportunity to start screening mammography at age 40; 3) For women ages 45-55, we recommend annual screening mammograms; 4) For women ages 55 and over, we support both the transition from an annual to a biennial interval if this aligns more with patient's values and preferences, or continuation with annual screening; 5) All women should discuss with their providers when to stop screening mammograms. Wrapper And Preserver(s): Anamika Magana, [facility]; Lesley Valiente, [facility] OVERALL STUDY BIRADS: Category 3: Probably Benign Origination Specialist: Viola Transcribe Date/Time: Jul 26 2024 2:35P Dictated by : MARIAH HILL MD This examination was interpreted and the report reviewed and electronically signed by: MARIAH HILL MD on Jul 26 2024 3:31PM EST [id number] CN Normal [facility] No Panel Informationon 07-26 IMPRESSION: PROBABLY BENIGN The 8 mm oval focal asymmetry in the right breast is probably benign. LIMITED ULTRASOUND OF RIGHT BREAST: 07/26/2024 RESULT: Comparison is made to exams dated: 01/05/2024 mammogram, 12/08/2023 mammogram, and 05/01/2021 mammogram - [facility]. Color flow and real-time ultrasound of the right breast 10 o'clock region were performed. Malone scale images of the real-time examination were reviewed. There is a 1.1 cm x 0.4 cm x 0.8 cm normal lymph node in the right breast at 10 o'clock posterior depth. This normal lymph node is hypoechoic with fatty hilum. This correlates with mammography findings. IMPRESSION: PROBABLY BENIGN The 1.1 cm x 0.4 cm x 0.8 cm normal lymph node in the right breast is probably benign. A follow-up mammogram and an ultrasound in 6 months is recommended to demonstrate stability. Mariah campa/viola:07/26/2024 15:31:25 Multiple national specialty organizations have released breast cancer screening guidelines for women at average risk for developing breast cancer - guidelines that are based on both evidence and opinion, yet differ on when to start and how often to screen for breast cancer. With representation from Breast Imaging, Internal Medicine, Women's Health, Family Medicine, and Medical/Surgical Oncology, the [facility] has carefully reviewed the data and reached the following consensus: 1) All women should engage in shared decision-making with their providers to decide when to start and how often to screen; 2) All women should have the opportunity to start screening mammography at age 40; 3) For women ages 45-55, we recommend annual screening mammograms; 4) For women ages 55 and over, we support both the transition from an annual to a biennial interval if this aligns more with patient's values and preferences, or continuation with annual screening; 5) All women should discuss with their providers when to stop screening mammograms. Wrapper And Preserver(s): Anamika Magana, [facility]; Lesley Valiente, [facility] OVERALL STUDY BIRADS: Category 3: Probably Benign Origination Specialist: Viola Transcribe Date/Time: Jul 26 2024 2:35P Dictated by : MARIAH HILL MD This examination was interpreted and the report reviewed and electronically signed by: MARIAH HILL MD on Jul 26 2024 3:31PM [facility] DIVISION OF RADIOLOGY Radiology Study observation (narrative) [facility] No Panel InformationOrdered By: Cc Provider on 07-26-2024 [facility] US Breast - right limitedon 07-26-2024 * * *Final Report* * * DATE OF EXAM: Jul 26 2024 3:23PM U [id number] - [facility] US BREAST LTD RT / PROCEDURE REASON: Abnormal finding on breast imaging * * * * Physician Interpretation * * * * #[id number] - [facility] W ESEQUIEL RT #[id number] - [facility] [employer] BREAST LTD RT UNILATERAL RIGHT DIGITAL DIAGNOSTIC MAMMOGRAM TOMOSYNTHESIS WITH CAD: 07/26/2024 HISTORY: Abnormal Finding On Breast Imaging / Short term follow up right breast.-Abnormal Mammogram/ Patient did not have biopsy/ 6 month follow up /priors available for comparison Abnormal Finding On Breast Imaging. RESULT: TECHNIQUE: The study was acquired using full field digital technology and interpreted from soft copy. Digital Breast Tomosynthesis (DBT) images were obtained and used to assist in the interpretation of this examination. Current study was also evaluated with a Computer Aided Detection (CAD). Comparison is made to exams dated: 01/05/2024 mammogram, 12/08/2023 mammogram, and 05/01/2021 mammogram - [facility]. The right breast is heterogeneously dense, which may obscure small masses. There is an 8 mm oval focal asymmetry in the right breast at 10 o'clock posterior depth. This is not significantly changed. No other significant masses or calcifications are seen in the breast. DIVISION OF RADIOLOGY Provider, [facility] - 07/26/2024 * * *Final Report* * * DATE OF EXAM: Jul 26 2024 3:23PM [facility] 0594 - [facility] [employer] BREAST LTD RT / PROCEDURE REASON: Abnormal finding on breast imaging * * * * Physician Interpretation * * * * #[id number] - [facility] W ESEQUIEL RT #[id number] - [facility] [employer] BREAST LTD RT UNILATERAL RIGHT DIGITAL DIAGNOSTIC MAMMOGRAM TOMOSYNTHESIS WITH CAD: 07/26/2024 HISTORY: Abnormal Finding On Breast Imaging / Short term follow up right breast.-Abnormal Mammogram/ Patient did not have biopsy/ 6 month follow up /priors available for comparison Abnormal Finding On Breast Imaging. RESULT: TECHNIQUE: The study was acquired using full field digital technology and interpreted from soft copy. Digital Breast Tomosynthesis (DBT) images were obtained and used to assist in the interpretation of this examination. Current study was also evaluated with a Computer Aided Detection (CAD). Comparison is made to exams dated: 01/05/2024 mammogram, 12/08/2023 mammogram, and 05/01/2021 mammogram - [facility]. The right breast is heterogeneously dense, which may obscure small masses. There is an 8 mm oval focal asymmetry in the right breast at 10 o'clock posterior depth. This is not significantly changed. No other significant masses or calcifications are seen in the breast. IMPRESSION IMPRESSION: PROBABLY BENIGN The 8 mm oval focal asymmetry in the right breast is probably benign. LIMITED ULTRASOUND OF RIGHT BREAST: 07/26/2024 RESULT: Comparison is made to exams dated: 01/05/2024 mammogram, 12/08/2023 mammogram, and 05/01/2021 mammogram - [facility]. Color flow and real-time ultrasound of the right breast 10 o'clock region were performed. Malone scale images of the real-time examination were reviewed. There is a 1.1 cm x 0.4 cm x 0.8 cm normal lymph node in the right breast at 10 o'clock posterior depth. This normal lymph node is hypoechoic with fatty hilum. This correlates with mammography findings. IMPRESSION: PROBABLY BENIGN The 1.1 cm x 0.4 cm x 0.8 cm normal lymph node in the right breast is probably benign. A follow-up mammogram and an ultrasound in 6 months is recommended to demonstrate stability. Mariah campa/viola:07/26/2024 15:31:25 Multiple national specialty organizations have released breast cancer screening guidelines for women at average risk for developing breast cancer - guidelines that are based on both evidence and opinion, yet differ on when to start and how often to screen for breast cancer. With representation from Breast Imaging, Internal Medicine, Women's Health, Family Medicine, and Medical/Surgical Oncology, the [facility] has carefully reviewed the data and reached the following consensus: 1) All women should engage in shared decision-making with their providers to decide when to start and how often to screen; 2) All women should have the opportunity to start screening mammography at age 40; 3) For women ages 45-55, we recommend annual screening mammograms; 4) For women ages 55 and over, we support both the transition from an annual to a biennial interval if this aligns more with patient's values and preferences, or continuation with annual screening; 5) All women should discuss with their providers when to stop screening mammograms. Wrapper And Preserver(s): Anamika Magana, [facility]; Lesley Valiente, [facility] OVERALL STUDY BIRADS: Category 3: Probably Benign Origination Specialist: Viola Transcrideedee Date/Time: Jul 26 2024 2:35P Dictated by : MARIAH HILL MD This examination was interpreted and the report reviewed and electronically signed by: MARIAH HILL MD on Jul 26 2024 3:31PM EST [facility] Absolute lymphocyte countOrd ered By: Arsenio Coto on 01-28-2024 Lymphocytes Auto (Unsp spec) [#/Vol] 3.32 10*3/uL 0.83-4.51 [facility] Aldolase ser/plasOrdered By: Arsenio Coto on 01-28-2024 Aldolase [Catalytic activity/Vol] 5.3 mU/mL 3.3-10.3 [facility] Comment on above: Performed at: [address] Director: Wing Etienne PhD, Phone: [phone] Automated lymphocyte count a s percentage of total leukocytesOrdered By: Arsenio Coto on 01-28-2024 Lymphocytes/100 WBC Auto (Unsp spec) 45.5 % 19-41 [facility] Basophil percentageOrdered B y: Arsenio Coto on 01-28-2024 Basophil percentage 0-5 SEEN /hpf 0-5 [facility] Basophils/100 WBC (Bld) 0.4 % 0-1 [facility] Bilirubin [Mass/Vol] 0.30 mg/dL 0.20-1.00 [facility] Comment on above: For patients on eltr ombopag therapy, use of Dimension [place] TBIL is not recommended. Chloride [Moles/Vol] 112 mmol/L 98-107 [facility] Eosinophils/100 WBC (Bld) 1.0 % 0-5 [facility] Glucose [Mass/Vol] 98 mg/dL 74-106 [facility] Hemoglobin (Bld) [Mass/Vol] 14.2 g/dL 12.0-15.0 [facility] Monocytes/100 WBC (Bld) 5.5 % 0-10 [facility] Neutrophils (Bld) [#/Vol] 3.5 10*3/uL 2.0-7.7 [facility] Neutrophils/100 WBC (Bld) 47.3 % 47-70 [facility] Potassium [Moles/Vol] 3.4 mmol/L 3.5-5.1 [facility] Protein [Mass/Vol] 7.2 g/dL 6.4-8.2 [facility] Sodium [Moles/Vol] 141 mmol/L 136-145 [facility] WBC (Bld) [#/Vol] 7.3 10*3/uL 4.4-11.0 [facility] Bilirubin Test strip Ql (U)O rdered By: Arsenio Coto on 01-28-2024 Bilirubin Ql (U) Negative Negative [facility] Determination of erythrocyte mean corpuscular volume (MCV)Ordered By: Arsenio Coto on 01-28-2024 MCV (RBC) [Entitic vol] 92.0 fL 81-99 [facility] Erythrocyte distribution wid th ratioOrdered By: Arsenio Coto on 01-28-2024 Erythrocyte distribution width (RBC) [Ratio] 12.9 % 11.6-14.6 [facility] Erythrocyte distribution wid th standard deviationOrdered By: Arsenio Coto on 01-28-2024 Erythrocyte distribution width (RBC) [Entitic vol] 43.4 fL 35.1-43.9 [facility] Hematocrit Auto (Bld) [Volum e fraction]Ordered By: Arsenio Coto on 01-28-2024 Hematocrit (Bld) [Volume fraction] 42.4 % 37-47 [facility] Immature granulocytes/100 WB C Auto (Bld)Ordered By: Arsenio Coto on 01-28-2024 Immature granulocytes/100 WBC (Bld) 0.300 % 0.0-0.9 [facility] Comment on above: IG% - Immature Granu locytes (promyelocytes, myelocytes and metamyelocytes) > 1% indicates that a LEFT SHIFT is Present. Ketones Test strip Ql (U)Ord ered By: Arsenio Coto on 01-28-2024 Ketones Ql (U) 5 mg/dl Negative [facility] Laboratory - Chemistry and C hemistry - challengeOrdered By: Arsenio Coto on 01-28-2024 Albumin/Globulin [Mass ratio] 1.2 {ratio} 0.9-2.4 [facility] ALP [Catalytic activity/Vol] 93 U/L 45-117 [facility] ALT [Catalytic activity/Vol] 45 U/L 13-56 [facility] CK [Catalytic activity/Vol] 74 U/L 26-192 [facility] CO2 [Moles/Vol] 25.0 mmol/L 21.0-32.0 [facility] Globulin (S) [Mass/Vol] 3.2 g/dL 2.2-4.2 [facility] Urea nitrogen/Creatinine [Mass ratio] 33.0 mg/mg 10-20 [facility] Laboratory - Hematology and Cell countsOrdered By: Arsenio Coto on 01-28-2024 MCH (RBC) [Entitic mass] 30.8 pg 27.0-32.0 [facility] MCHC (RBC) [Mass/Vol] 33.5 g/dL 32-36 [facility] Nucleated RBC/100 WBC (Bld) [Ratio] 0 % 0-5 [facility] Platelet mean volume (Bld) [Entitic vol] 10.0 fL 6.2-12.0 [facility] Platelets (Bld) [#/Vol] 220 10*3/uL 150-450 [facility] Mucus LM Ql (Urine sed)Order ed By: Arsenio Coto on 01-28-2024 Mucus Ql (Urine sed) 0 SEEN /hpf [facility] Nitrite Test strip Ql (U)Ord ered By: Arsenio Coto on 01-28-2024 Nitrite Ql (U) Negative Negative [facility] No Panel InformationOrdered By: Arsenio Coto on 01-28-2024 Anti-Nuclear Antibody Screen Negative . [facility] Comment on above: Negative <1:80 Borde rline 1:80 Positive >1:80ICAP nomenclature: AC-0For more information about Hep-2 cell patterns useANApatterns.org, the official website for theInternational Consensus on Antinuclear Antibody (NEERAJ)Patterns (ICAP).Performed at: [facility] [id number] Director: Wing Etienne PhD, Phone: [phone] Estimated GFR (MDRD) Amer 121 mL/min >60 [facility] Comment on above: GFR Calc Estimated GFR (MDRD) Non-Af Amer 100 mL/min >60 [facility] Comment on above: Non- GFR Calc Urine RBC 0-5 SEEN /hpf 0-5 [facility] Protein Test strip Ql (U)Ord ered By: Arsenio Coto on 01-28-2024 Protein Ql (U) Negative Negative [facility] RBC Auto (Bld) [#/Vol]Ordere d By: Arsenio Coto on 01-28-2024 RBC (Bld) [#/Vol] 4.61 10*6/uL 4.2-5.4 [facility] Serum DNA double strand anti body assay (units/volume)Ordered By: Arsenio Coto on 01-28-2024 DNA double strand Ab Qn (S) [IU]/mL 0-9 [facility] Comment on above: Negative <5 Equivoca l 5 - 9 Positive >9 Serum or plasma calcium sharon urement (mass/volume)Ordered By: Arsenio Coto on 01-28-2024 Calcium [Mass/Vol] 8.9 mg/dL 8.5-10.1 [facility] Serum or plasma creatinine m easurement (mass/volume)Ordered By: Arsenio Coto on 01-28-2024 Creatinine [Mass/Vol] 0.64 mg/dL 0.55-1.02 [facility] Comment on above: The validity of the calculated GFR & GFRAA in patients over 70 years has not been determined. Clinical correlation is essential. Serum or plasma urea nitroge n measurement (mass/volume)Ordered By: Arsenio Coto on 01-28-2024 Urea nitrogen [Mass/Vol] 21 mg/dL 7-18 [facility] Squamous epithelial cells de tection in urine sediment by light microscopyOrdered By: Arsenio Coto on 01-28-2024 Epithelial cells.squamous LM Ql (Urine sed) 0-5 SEEN /hpf 5-10 [facility] Thin prep Papanicolaou smear with manual screeningOrdered By: Arsenio Coto on 01-28-2024 Thin prep Papanicolaou smear with manual screening 4.0 g/dL 3.2-5.0 [facility] Thin prep Papanicolaou smear with manual screening 19 U/L 15-37 [facility] Thin prep Papanicolaou smear with manual screening 4 5-15 [facility] Urine blood detectionOrdered By: Arsenio Coto on 01-28-2024 RBC Ql (U) 25 /ul Negative [facility] Urine clarityOrdered By: Esequiel Coto on 01-28-2024 Clarity (U) Clear Clear [facility] Urine color determinationOrd ered By: Arsenio Coto on 01-28-2024 Color (U) Yellow Yellow [facility] Urine glucose detectionOrder ed By: Arsenio Coto on 01-28-2024 Glucose Ql (U) Normal mg/dl Normal [facility] Urine leukocyte esterase det ection by dipstickOrdered By: Arsenio Coto on 01-28-2024 Leukocyte esterase Test strip Ql (U) 25 /ul Negative [facility] Urine pHOrdered By: Arsenio Coto on 01-28-2024 pH (U) 5.0 [pH] 5.0 - 8.0 [facility] Urine sediment bacteria coun t by microscopy (number/high power field)Ordered By: Arsenio Coto on 01-28-2024 Bacteria LM.HPF (Urine sed) [#/Area] RARE /hpf None Seen [facility] Urine specific gravity measu rementOrdered By: Arsenio Coto on 01-28-2024 Specific gravity (U) [Rel density] 1.025 1.002-1.030 [facility] Urine urobilinogen measureme ntOrdered By: Arsenio Coto on 01-28-2024 Urobilinogen Ql (U) Normal mg/dl Normal [facility] CNOVon 01-22-2024 CNOV Office Visit (GENSWS) POLO ELLIS ([id number]) 1960 F Date Time Provider Department 01/22/24 8:45 AM TROY LEDESMA During your visit today, we recorded the following information about you: Temperature Pulse Blood pressure Weight 98.9 degrees 85/minute 124/82 64.6 kg Height 1.651 m Abbie Castelan LPN 01/22/2024 8:39 AM Signed [...] Neurologic: The patient denies a history of epilepsy/convulsions , denies headaches, denies head/spinal injuries, and denies [...] last Mammogram screening? 2023 Last Colonoscopy: 2020 RYLEE Clemons Richard T, MD 01/24/2024 6:41 AM Signed HISTORY AND PHYSICAL - BREAST COMPLAINT Polo Ellis 1960 REFERRING PHYSICIAN: Leida Ruano CHIEF COMPLAINT: abnormal right breast imaging HPI: [...] dated: 12/08/2023 mammogram and 05/01/2021 mammogram - [facility]. Color flow and real-time ultrasound of the [...] by me today at the request of Leida Ruano for my opinion and advice regarding abnormal right breast imaging. PAST MEDICAL HISTORY Diagnosis Date Elevated LFTs 12/19/2022 Hearing loss bilateral hearing aids Hyperglycemia 12/19/2022 Hyperlipidemia 12/2015 Kidney stones Low grade squamous intraepithelial lesion (LGSI (more content not included)... Normal [facility] DIAG W ESEQUIEL RIGHTon 02-0 [facility] DIAG W ESEQUIEL RTon 024 [facility] W ESEQUIEL RT * * *Final Report* * * DATE OF EXAM: Jan 05 2024 2:25PM [id number] - [facility] W ESEQUIEL RT / PROCEDURE REASON: Abnormal mammogram * * * * Physician Interpretation * * * * RESULT: #[id number] - [facility] DIAG W ESEQUIEL RT #[id number] - [facility] US BREAST LTD RT UNILATERAL RIGHT DIGITAL DIAGNOSTIC MAMMOGRAM TOMOSYNTHESIS WITH CAD: 01/05/2024 HISTORY: Abnormal Mammogram/call back right /priors available for comparison Abnormal Mammogram. RESULT: TECHNIQUE: The study was acquired using full field digital technology and interpreted from soft copy. Digital Breast Tomosynthesis (DBT) images were obtained and used to assist in the interpretation of this examination. Current study was also evaluated with a Computer Aided Detection (CAD). Comparison is made to exams dated: 12/08/2023 mammogram and 05/01/2021 mammogram - [facility]. The right breast is heterogeneously dense, which may obscure small masses. There is a 1 cm irregular equal density focal asymmetry in the right breast at 10 o'clock middle depth. No other significant masses or calcifications are seen in the breast. IMPRESSION: SUSPICIOUS FINDING - BIOPSY SHOULD BE CONSIDERED The 1 cm irregular equal density focal asymmetry in the right breast is suspicious of malignancy. An ultrasound guided biopsy is recommended. LIMITED ULTRASOUND OF RIGHT BREAST: 01/05/2024 RESULT: Comparison is made to exams dated: 12/08/2023 mammogram and 05/01/2021 mammogram - [facility]. Color flow and real-time ultrasound of the [...] An ultrasound guided biopsy is recommended. Mariah campa/viola:01/05/2024 14:33:31 Multiple national specialty organizations have released breast cancer screening guidelines for women at average risk for developing breast cancer - guidelines that are based on both evidence and opinion, yet differ on when to start and how often to screen for breast cancer. With representation from Breast Imaging, Internal Medicine, Women's Health, Family Medicine, and Medical/Surgical Oncology, the [facility] has carefully reviewed the data and reached the following consensus: 1) All women should engage in shared decision-making with their providers to decide when to start and how often to screen; 2) All women should have the opportunity to start screening mammography at age 40; 3) For women ages 45-55, we recommend annual screening mammograms; 4) For women ages 55 and over, we support both the transition from an annual to a biennial interval if this aligns more with patient's values and preferences, or continuation with annual screening; 5) All women should discuss with their providers when to stop screening mammograms. Wrapper And Preserver(s): RT Zackary(R)(M), [facility]; Anamika Magana, [facility] OVERALL STUDY BIRADS: 4 Suspicious finding - Biopsy should be considered Origination Specialist: Viola Transcribe Date/Time: Jan 05 2024 1:43P Dictated by: MARIAH HILL MD This examination was interpreted and the report reviewed and electronically signed by: MARIAH HILL MD on Jan 05 2024 2:33PM EST [id number] CN Normal [facility] US BREAST LTD RTon 01-05 [facility] US BREAST LTD RT * * *Final Report* * * DATE OF EXAM: Jan 05 2024 2:26PM U [id number] - [facility] [employer] RT / PROCEDURE REASON: Abnormal mammogram * * * * Physician Interpretation * * * * #[id number] - [facility] DIAG W ESEQUIEL RT #[id number] - [facility] [employer] RT UNILATERAL RIGHT DIGITAL DIAGNOSTIC MAMMOGRAM TOMOSYNTHESIS WITH CAD: 01/05/2024 HISTORY: Abnormal Mammogram/call back right /priors available for comparison Abnormal Mammogram. RESULT: TECHNIQUE: The study was acquired using full field digital technology and interpreted from soft copy. Digital Breast Tomosynthesis (DBT) images were obtained and used to assist in the interpretation of this examination. Current study was also evaluated with a Computer Aided Detection (CAD). Comparison is made to exams dated: 12/08/2023 mammogram and 05/01/2021 mammogram - [facility]. The right breast is heterogeneously dense, which may obscure small masses. There is a 1 cm irregular equal density focal asymmetry in the right breast at 10 o'clock middle depth. No other significant masses or calcifications are seen in the breast. IMPRESSION: SUSPICIOUS FINDING - BIOPSY SHOULD BE CONSIDERED The 1 cm irregular equal density focal asymmetry in the right breast is suspicious of malignancy. An ultrasound guided biopsy is recommended. LIMITED ULTRASOUND OF RIGHT BREAST: 01/05/2024 RESULT: Comparison is made to exams dated: 12/08/2023 mammogram and 05/01/2021 mammogram - [facility]. Color flow and real-time ultrasound of the [...] An ultrasound guided biopsy is recommended. Mariah campa/viola:01/05/2024 14:33:31 Multiple national specialty organizations have released breast cancer screening guidelines for women at average risk for developing breast cancer - guidelines that are based on both evidence and opinion, yet differ on when to start and how often to screen for breast cancer. With representation from Breast Imaging, Internal Medicine, Women's Health, Family Medicine, and Medical/Surgical Oncology, the [facility] has carefully reviewed the data and reached the following consensus: 1) All women should engage in shared decision-making with their providers to decide when to start and how often to screen; 2) All women should have the opportunity to start screening mammography at age 40; 3) For women ages 45-55, we recommend annual screening mammograms; 4) For women ages 55 and over, we support both the transition from an annual to a biennial interval if this aligns more with patient's values and preferences, or continuation with annual screening; 5) All women should discuss with their providers when to stop screening mammograms. Wrapper And Preserver(s): RT Zackary(R)(M), [facility]; Anamika Magana, [facility] OVERALL STUDY BIRADS: 4 Suspicious finding - Biopsy should be considered Origination Specialist: Viola Transcribe Date/Time: Jan 05 2024 1:43P Dictated by : MARIAH HILL MD This examination was interpreted and the report reviewed and electronically signed by: MARIAH HILL MD on Jan 05 2024 2:33PM EST [id number] CN Normal [facility] US BREAST LTD RIGHTon 2023 [facility] CNCOon 12-09-2023 CNCO HNO ID: [id number] Author: COORDINATOR, MAMMOGRAPHY, ? Service: ? Author Type: Physician Type: Letter Filed: 12/09/2023 10:38 Note Text: December 09, 2023 PID: [id number] [place] [address] Dear Ms. Ellis, Your recent breast imaging exam on 12/08/2023 showed a possible finding that requires additional imaging studies for a complete evaluation. Most such findings are probably benign (not cancer). Your mammogram demonstrates that you have dense breast tissue, which could hide abnormalities. Dense breast tissue, in and of itself, is a relatively common condition. Therefore, this information is not provided to cause undue concern; rather, it is to raise your awareness and promote discussion with your health care provider regarding the presence of dense breast tissue in addition to other risk factors. If you have a healthcare provider who ordered/prescribed your screening mammogram: Please call [phone] or [phone]: [phone] to schedule an appointment for your additional imaging (if you have not already done so). If you DO NOT have a healthcare provider (ie you did not have an order/prescription for your screening mammogram): Please call to schedule an appointment for your additional imaging (if you have not already done so). You must have an order/prescription from your physician when calling to schedule your appointment. If your order/prescription is not electronic, you must bring the hard copy with you on the day of your exam to avoid delays. Your imaging studies and reports are kept on file at [facility] as part of your permanent medical record, and are available for your continuing care. Thank you for allowing us to help in meeting your health care needs. Sincerely, Dr. Orellana Interpreting Radiologist [facility] (Additional imaging) Normal [facility] 12-09-2023 RADHAN Telephone (FAMPWS) POLO ELLIS ([id number]) 1960 F Date Time Provider Department 12/09/23 LEIDA RUANO [facility] During your visit today, we recorded the following information about you: Leida Ruano APRN.CNP 12/09/2023 5:40 PM Signed Please let her know that there is an area in her right breast that radiology would like to take a closer look at. Please assist her to schedule this testing. JESSICA Villafuerte Jazzmin 12/09/2023 6:52 PM Signed Attempted to contact pt but number seems to be disconnected. Will need to try again. Nerissa Rojas 12/11/2023 1:50 PM Signed Pt informed, verbalized understanding. Please assist with scheduling. Nerissa Holiday Allergies As of Date: 12/09/2023 (No Known Allergies) Date Reviewed: 07/08/2023 Reviewed by: Leida Ruano APRN.PAINT DEPARTMENT SUPERVISOR - Fully Assessed Reason for Visit: Results [95] Appointment [186] Primary Visit Diagnosis:Abnormal mammogram [R92.8] Order(s):[facility] DIAGNOSTIC RIGHT [[id number]] Order #: [id number] FUTURE BREAST LTD RIGHT [[id number]] Order #: [id number] FUTURE Prescriptions as of 12/25/2023 - triamcinolone acetonide (KENALOG) 0.5 % cream Apply 1 application to affected area twice daily. For rash/itching. Apply sparingly. Avoid face/skin fold. - MULTIVITAMIN ORAL Take by mouth. - BIOTIN ORAL Take by mouth. - varenicline (CHANTIX) 0.5 mg (11)- 1 mg (42) tablet Take 1 tablet (0.5 mg) by mouth once daily for 3 days, then 1 tablet (0.5 mg) twice daily for 4 days, then one tablet (1 mg) twice daily. Problem List As Of Date 12/09/2023 Noted Resolved Tobacco abuse [Z72.0] 05/06/2013 Left shoulder pain [M25.512] 05/06/2013 Hypercholesterolemia [E78.00] 05/10/2013 Post-menopausal [Z78.0] 07/13/2013 Degenerative disc disease at L5-S1 level [M51.3*08/26/2019 Well adult exam [Z00.00] 12/15/2022 Hyperglycemia [R73.9] 12/19/2022 Elevated LFTs [R79.89] 12/19/2022 Encounter Status:Closed by LEIDA RUANO on 12/25/23 [facility] SCREENINGon 12-08-2023 [facility] SCREENING * * *Final Report* * * DATE OF EXAM: Dec 08 2023 3:02PM MARA [id number] - [facility] SCREENING / PROCEDURE REASON: Encounter for screening mammogram for breast cancer * * * * Physician Interpretation * * * * RESULT: #[id number] - [facility] SCREENING BILATERAL DIGITAL SCREENING MAMMOGRAM WITH CAD: 12/08/2023 HISTORY: Encounter For Screening Mammogram For Breast Cancer / Screening Mammogram-Patient reports NO symptoms. /priors available for comparison. RESULT: TECHNIQUE: The study was acquired using full field digital technology and interpreted from soft copy. Current study was also evaluated with a Computer Aided Detection (CAD). Comparison is made to exams dated: 05/01/2021 mammogram - [facility], 08/29/2019 mammogram, 08/17/2018 mammogram, 11/11/2016 mammogram - [facility], and 11/09/2015 mammogram - [facility]. The breasts are heterogeneously dense, which may obscure small masses. There is one biopsy clip in the right breast and three biopsy clips in the left breast. There is an asymmetry in the right breast middle depth outer region seen on the craniocaudal view only. No other significant masses, calcifications, or other findings are seen in either breast. IMPRESSION: INCOMPLETE: NEEDS ADDITIONAL IMAGING EVALUATION The asymmetry in the right breast is indeterminate. Additional views are recommended. Kami hare/viola:12/09/2023 10:38:27 Wrapper And Preserver(s): Lesley Valiente, [facility] letter sent: Additional Imaging Needed Mammogram BI-RADS: 0 Incomplete: needs additional imaging evaluation If this report indicates you need additional imaging, and it has NOT yet been performed, please call , to schedule. We sincerely thank you for choosing the [facility] for your breast imaging needs. Multiple national specialty organizations have released breast cancer screening guidelines for women at average risk for developing breast cancer - guidelines that are based on both evidence and opinion, yet differ on when to start and how often to screen for breast cancer. With representation from Breast Imaging, Internal Medicine, Women's Health, Family Medicine, and Medical/Surgical Oncology, the [facility] has carefully reviewed the data and reached the following consensus: 1) All women should engage in shared decision-making with their providers to decide when to start and how often to screen; 2) All women should have the opportunity to start screening mammography at age 40; 3) For women ages 45-55, we recommend annual screening mammograms; 4) For women ages 55 and over, we support both the transition from an annual to a biennial interval if this aligns more with patient's values and preferences, or continuation with annual screening; 5) All women should discuss with their providers when to stop screening mammograms. Origination Specialist: Viola Transcribe Date/Time: Dec 08 2023 2:40P Dictated by: KAMI ORELLANA MD This examination was interpreted and the report reviewed and electronically signed by: KAMI ORELLANA MD on Dec 09 2023 10:38AM EST [id number] CN Normal [facility] CCP ANTIBODY IGGon Cyclic citrullinated peptide IgG Qn <20 Units [facility] Cyclic citrullinated peptide IgG Qnon 07-09-2023 CCP Antibody IgG Qualitative Negative Negative [facility] Nuclear Ab IA Ql (S)on 07-09 NEERAJ Scr Qual Negative Negative [facility] RHEUMATOID FACTOR BLon 07-09 Rheumatoid factor Qn <16 IU/mL [facility] URIC ACID BLOODon 07-09-2023 Urate [Mass/Vol] 3.8 mg/dL 2.5 - 6.6 mg/dL [facility] Vital Signs Date Time Vital Sign Value Performing Clinician Jimenai steven 10-14-2024 07:06-0500 Body height 165 cm Leida Ruano APRN.PAINT DEPARTMENT SUPERVISOR Work Phone: [facility] 10-14-2024 07:06-0500 Body mass index (BMI) [Ratio] 23.06 kg/m2 Leida Ruano APRN.PAINT DEPARTMENT SUPERVISOR Work Phone: [facility] 10-14-2024 07:06-0500 Body weight 62.78 kg Leida Ruano APRN.PAINT DEPARTMENT SUPERVISOR Work Phone: [facility] 10-14-2024 07:06-0500 Diastolic blood pressure 82 mm[Hg] Leida Ruano DISTANCE LEARNING UNIT LEADER.PAINT DEPARTMENT SUPERVISOR Work Phone: [facility] 10-14-2024 07:06-0500 Heart rate 67 /min Leida Ruano DISTANCE LEARNING UNIT LEADER.PAINT DEPARTMENT SUPERVISOR Work Phone: [facility] 10-14-2024 07:06-0500 Respiratory rate 16 /min Leida Ruano DISTANCE LEARNING UNIT LEADER.PAINT DEPARTMENT SUPERVISOR Work Phone: [facility] 10-14-2024 07:06-0500 SaO2% (BldA) [Mass fraction] 100 % Leida Alden DISTANCE LEARNING UNIT LEADER.PAINT DEPARTMENT SUPERVISOR Work Phone: [facility] 10-14-2024 07:06-0500 Systolic blood pressure 118 mm[Hg] Leida Alden DISTANCE LEARNING UNIT LEADER.PAINT DEPARTMENT SUPERVISOR Work Phone: [facility] 01-22-2024 08:37-0500 Body height 165.1 cm Troy Ledesma MD Work Phone: [facility] 01-22-2024 08:37-0500 Body temperature 98.91 [degF] Troy Ledesma MD Work Phone: [facility] 01-22-2024 08:37-0500 Body weight 64.59 kg Troy Ledesma MD Work Phone: [facility] 01-22-2024 08:37-0500 Diastolic blood pressure 82 mm[Hg] Troy Ledesma MD Work Phone: [facility] 01-22-2024 08:37-0500 Heart rate 85 /min Troy Ledesma MD Work Phone: [facility] 01-22-2024 08:37-0500 SaO2% (BldA) [Mass fraction] 97 % Troy Ledesma MD Work Phone: [facility] 01-22-2024 08:37-0500 Systolic blood pressure 124 mm[Hg] Troy Ledesma MD Work Phone: [facility] 07-08-2023 12:59-0400 Body temperature 98.1 [degF] Leida Alden DISTANCE LEARNING UNIT LEADER.PAINT DEPARTMENT SUPERVISOR Work Phone: [facility] 07-08-2023 12:59-0400 Body weight 62.23 kg Leida Alden DISTANCE LEARNING UNIT LEADER.PAINT DEPARTMENT SUPERVISOR Work Phone: [facility] 07-08-2023 12:59-0400 Diastolic blood pressure 78 mm[Hg] Leida Alden DISTANCE LEARNING UNIT LEADER.PAINT DEPARTMENT SUPERVISOR Work Phone: [facility] 07-08-2023 12:59-0400 Heart rate 64 /min Leida Alden DISTANCE LEARNING UNIT LEADER.PAINT DEPARTMENT SUPERVISOR Work Phone: [facility] 07-08-2023 12:59-0400 Respiratory rate 16 /min Leida Alden DISTANCE LEARNING UNIT LEADER.PAINT DEPARTMENT SUPERVISOR Work Phone: [facility] 07-08-2023 12:59-0400 SaO2% (BldA) [Mass fraction] 96 % Leida Alden DISTANCE LEARNING UNIT LEADER.PAINT DEPARTMENT SUPERVISOR Work Phone: [facility] 07-08-2023 12:59-0400 Systolic blood pressure 122 mm[Hg] Leida Alden DISTANCE LEARNING UNIT LEADER.PAINT DEPARTMENT SUPERVISOR Work Phone: [facility] 03-04-2023 09:44-0400 Body temperature 98.4 [degF] Christianne Callow DISTANCE LEARNING UNIT LEADER.PAINT DEPARTMENT SUPERVISOR Work Phone: [facility] 03-04-2023 09:44-0400 Body weight 62.87 kg Christianne Callow DISTANCE LEARNING UNIT LEADER.PAINT DEPARTMENT SUPERVISOR Work Phone: [facility] 03-04-2023 09:44-0400 Diastolic blood pressure 70 mm[Hg] Christianne Callow DISTANCE LEARNING UNIT LEADER.PAINT DEPARTMENT SUPERVISOR Work Phone: [facility] 03-04-2023 09:44-0400 Heart rate 70 /min Christianne Callow DISTANCE LEARNING UNIT LEADER.PAINT DEPARTMENT SUPERVISOR Work Phone: [facility] 03-04-2023 09:44-0400 Respiratory rate 21 /min Christianne Callow DISTANCE LEARNING UNIT LEADER.PAINT DEPARTMENT SUPERVISOR Work Phone: [facility] 03-04-2023 09:44-0400 SaO2% (BldA) [Mass fraction] 98 % Christianne Callow DISTANCE LEARNING UNIT LEADER.PAINT DEPARTMENT SUPERVISOR Work Phone: [facility] 03-04-2023 09:44-0400 Systolic blood pressure 98 mm[Hg] Christianne Callow DISTANCE LEARNING UNIT LEADER.PAINT DEPARTMENT SUPERVISOR Work Phone: [facility] 12-15-2022 14:36-0500 Body temperature 97 [degF] Charanjit Matson DO Work Phone: [facility] 12-15-2022 14:36-0500 Body weight 61.69 kg Charanjit Matson DO Work Phone: [facility] 12-15-2022 14:36-0500 Diastolic blood pressure 60 mm[Hg] Charanjit Matson DO Work Phone: [facility] 12-15-2022 14:36-0500 Heart rate 76 /min Charanjit Matson DO Work Phone: [facility] 12-15-2022 14:36-0500 Respiratory rate 16 /min Charanjit Matson DO Work Phone: [facility] 12-15-2022 14:36-0500 Systolic blood pressure 110 mm[Hg] Charanjit Matson DO Work Phone: [facility] Encounters Encounter Date Encounter Type Care Provider Facility Start: 05-16-2025 End: 05-16-[address] Charanjit Matson DO Work Phone: [facility] Work Phone: Start: 05-16-2025 End: 05-16-[address] Rosa M Hampton MD -Laboratory [place] Work Phone: Start: 05-16-2025 End: 05-16-[facility] Start: 02-23-2025 End: 02-23-[address] Charanjit Matson DO Work Phone: [facility] Work Phone: Start: 02-23-2025 End: 02-23-[address] Rosa M Hampton MD -Laboratory, [facility] Work Phone: Start: 02-23-2025 End: 02-23-2025 [facility] Start: 11-07-2024 End: 11-07-[address] Rosa M Hampton MD -Laboratory, [facility] Work Phone: Start: 11-07-2024 End: 11-07-2024 ambulatory Rosa Mhardeep Mohamudbeth Facility:[facility] Start: 11-04-2024 End: 11-08-2024 Telephone encounter Leida Ruano APRN.CNP Work Phone: [facility] Comment on above: Results; Appointment Start: 11-04-2024 End: 11-04-2024 ambulatory LEIDA ALDEN Facility:[facility] Start: 11-04-2024 End: 11-04-2024 Patient encounter status Screen [facility] Start: 11-04-2024 End: 11-04-2024 Subsequent [facility] visit by [facility] Comment on above: Encounter for screen ing mammogram for breast cancer [Z12.31] Start: 10-14-2024 End: 10-14-2024 Telephone encounter Leida Ruano APRN.CNP Work Phone: [facility] Comment on above: Consult Start: 10-14-2024 End: 10-14-2024 ambulatory LEIDA ALDEN Facility:[facility] Start: 10-14-2024 End: 10-14-2024 Office outpatient visit 25 minutes Leida Ruano APRN.CNP Work Phone: [facility] Comment on above: Well adult exam (Yessenia ashley Dx); Elevated LFTs; Cutaneous lupus erythematosus; Hyperglycemia; Hypercholesterolemia; Screening for depression; Encounter for immunization; Encounter for screening examination for other mental health and behavioral disorders; Encounter for screening mammogram for breast cancer; Encounter for vitamin deficiency screening Start: 10-14-2024 End: 10-14-2024 Patient encounter status Leida Ruano APRN.CNP Work Phone: [facility] Work Phone: Start: 07-26-2024 End: 07-26-2024 ambulatory CHARANJIT Martinez MATSON Facility:[facility] Start: 07-26-2024 End: 07-26-2024 Subsequent hospital visit by physician Us [facility] Work Phone: Radiology Comment on above: Abnormal finding on breast imaging [R92.8] Start: 01-28-2024 End: 01-28-2024 ambulatory [facility] Work Phone: Start: 01-28-2024 End: 01-28-2024 Patient encounter procedure [facility] [place] Work Phone: Start: 01-22-2024 End: 01-22-2024 ambulatory CHARANJIT MATSON Facility:[facility] Start: 01-22-2024 End: 01-22-2024 Patient encounter procedure Troy Ledesma MD Work Phone: General Surgery Comment on above: Abnormal finding on breast imaging (Primary Dx) Start: 01-06-2024 Telephone encounter Leida Edwards APRN.PAINT DEPARTMENT SUPERVISOR Work Phone: [facility] Comment on above: Opened In Error Start: 01-05-2024 End: 01-05-2024 ambulatory CHARANJIT MATSON Facility:[facility] Start: 01-05-2024 End: 01-05-2024 Subsequent hospital visit by physician [facility] Work Phone: Radiology Comment on above: Abnormal mammogram [ R92.8] Start: 12-08-2023 End: 12-08-2023 ambulatory CHARANJIT MATSON Facility:[facility] Start: 07-08-2023 End: 07-08-2023 Patient encounter procedure Leida Ruano APRN.PAINT DEPARTMENT SUPERVISOR Work Phone: [facility] Comment on above: Rash (Primary Dx) Start: 03-10-2023 Telephone encounter Rufino johnson APRN.PAINT DEPARTMENT SUPERVISOR Work Phone: [facility] Comment on above: Results Start: 03-04-2023 End: 03-04-2023 Patient encounter procedure Christianne Connors DISTANCE LEARNING UNIT LEADER.PAINT DEPARTMENT SUPERVISOR Work Phone: [facility] Comment on above: Rash (Primary Dx) Start: 03-02-2023 End: 03-02-2023 Nursing evaluation of patient and report Mi Nurse Work Phone: [facility] Comment on above: Encounter for immuni zation (Primary Dx) Start: 02-17-2023 Telephone encounter Charanjit ball DO Work Phone: [facility] Comment on above: Orders Start: 12-19-2022 Telephone encounter Charanjit ball DO Work Phone: [facility] Comment on above: Results Start: 12-15-2022 Encounter for robin martinez adult medical examination without abnormal findings CHARANJIT MATSON [facility] Start: 12-15-2022 End: 12-15-2022 Patient encounter procedure Charanjit Matson DO Work Phone: [facility] Comment on above: Well adult exam (Yessenia ashley Dx); Need for influenza vaccination; Need for shingles vaccine; Hypercholesterolemia; Post-menopausal Start: 12-15-2022 End: 12-15-2022 Patient encounter status Charanjit Matson DO Work Phone: [facility] Start: 06-11-2022 ambulatory Charanjit michaels DO Work Phone: Internal Medicine [facility] [place] Procedures Date Procedure Procedure Detail Performing Clinician Start: 11-04-2024 Screening digital br east tomosynthesis bi Leida Ruano APRN.PAINT DEPARTMENT SUPERVISOR Work Phone: Start: 10-14-2024 RSV VACCINE, BIVALEN T (ABRYSVO) Leida Ruano APRN.PAINT DEPARTMENT SUPERVISOR Work Phone: Start: 10-14-2024 Adult depression scr eening assessment Leida Ruano APRN.PAINT DEPARTMENT SUPERVISOR Work Phone: Start: 10-14-2024 Lipid 1996 panel - S maritza or Plasma Leida Ruano APRN.PAINT DEPARTMENT SUPERVISOR Work Phone: Start: 07-26-2024 Us breast uni real t augusto with image limited Troy Ledesma MD Work Phone: Start: 07-26-2024 Digital breast tomosynthesis unilateral Troy Ledesma MD Work Phone: Start: 01-05-2024 Us breast uni real t augusto with image limited Leida Ruano APRN.PAINT DEPARTMENT SUPERVISOR Work Phone: Start: 01-05-2024 Digital breast tomosynthesis unilateral Leida Ruano DISTANCE LEARNING UNIT LEADER.PAINT DEPARTMENT SUPERVISOR Work Phone: Start: 12-18-2022 Lipid 1996 panel - S maritza or Plasma Us 1 Work Phone: Start: 12-15-2022 INFLUENZA VACCINE QUADRIVALENT 6 MO - 64 YRS IM Charanjit Matson DO Work Phone: Start: 05-01-2021 Mammography Charanjit najera DO Work Phone: Start: 12-14-2020 Colonoscopy Charanjit najera DO Work Phone: Start: 08-17-2018 Adult depression scr eening assessment Charanjit Matson DO Work Phone: Plan of Treatment Date Care Activity Detail Author Start: 10-14-2029 Lipid panel Lipid Screening [facility] Start: 12-18-2027 Lipid panel Lipid Screening [facility] Start: 12-18-2027 LIPID SCREEN LIPID SCREEN [facility] Start: 10-14-2027 Diabetes Screening Diabetes Screening [facility] Start: 09-30-2026 Urine microalbumin profile [facility] Start: 12-18-2025 DIABETES SCREEN DIABETES SCREEN [facility] Start: 12-18-2025 Diabetes Screening Diabetes Screening [facility] Start: 12-14-2025 Colonoscopy COLONOSCOPY [facility] Start: 12-14-2025 COLORECTAL CANCER SCREENING COLORECTAL CANCER SCREENING [facility] Start: 12-14-2025 Screening for malignant neoplasm of colon [facility] Start: 11-04-2025 Screening for malignant neoplasm of breast Mammogram Screening [facility] Start: 10-14-2025 Anxiety Screening Anxiety Screening [facility] Start: 10-14-2025 Covid-19 Vaccine ( season) Covid-19 Vaccine () [facility] Comment on above: Postponed from 07/31/2024 (Declined at t his time) Start: 10-14-2025 Depression Screening Depression Screening [facility] Start: 10-14-2025 HIV screening HIV Screening [facility] Comment on above: Postponed from 1978 (Declined at t his time) Start: 10-14-2025 Screening for malignant neoplasm of cervix Cervical Cancer Screening [facility] Comment on above: Postponed from 01/14/2021 (Declined at t his time) Start: 10-14-2025 Screening for malignant neoplasm of lung Lung Cancer Screening [facility] Comment on above: Postponed from 09/07/2020 (Declined at t his time) Start: 12-08-2024 Screening for malignant neoplasm of breast Mammogram Screening [facility] Start: 11-04-2024 End: 11-04-2024 Patient encounter procedure 11/04/2024 7:10 AM EST Appointment Mammogram [address] [place] [address] Mammogram Start: 08-27-2024 LIPID SCREEN LIPID SCREEN [facility] Start: 07-31-2024 Influenza vaccination Influenza Vaccine (#1) [facility] Start: 07-24-2024 End: 02-22-2025 MG Breast - right Diagnostic for implant [facility] Radiology Routine Abnormal finding on breast imaging Expected: 07/24/2024, Expires: 02/22/2025 [facility] Work Phone: Comment on above: Expected: 07/24/2024, Expires: 5 Start: 07-24-2024 End: 02-22-2025 US Breast - right limited US BREAST LTD RIGHT Radiology Routine Abnormal finding on breast imaging Expected: 07/24/2024, Expires: 02/22/2025 [facility] Work Phone: Comment on above: Expected: 07/24/2024, Expires: 5 Start: 01-28-2024 [facility] Start: 11-30-2023 Depression Assessment Depression Assessment [facility] Start: 07-31-2023 Covid-19 Vaccine ( season) Covid-19 Vaccine () [facility] Start: 07-31-2023 Influenza vaccination [facility] Start: 02-09-2023 SHINGRIX VACCINE (2 of 2) SHINGRIX VACCINE (2 of 2) [facility] Start: 12-15-2022 End: 02-14-2023 CBC W Auto Differential panel - Blood CBC + DIFF Lab Routine Well adult exam Hypercholesterolemia Expected: 12/15/2022, Expires: 02/14/2023 [facility] Work Phone: Comment on above: Expected: 12/15/2022, Expires: 3 Start: 12-15-2022 End: 02-14-2023 Cobalamin (Vitamin B12) [Mass/volume] in Serum or Plasma VITAMIN B12 BLOOD Lab Routine Well adult exam Expected: 12/15/2022, Expires: 02/14/2023 [facility] Work Phone: Comment on above: Expected: 12/15/2022, Expires: 3 Start: 12-15-2022 End: 02-14-2023 Comprehensive metabolic 2000 panel - Serum or Plasma COMP METABOLIC PANEL Lab Routine Well adult exam Hypercholesterolemia Expected: 12/15/2022, Expires: 02/14/2023 [facility] Work Phone: Comment on above: Expected: 12/15/2022, Expires: 3 Start: 12-15-2022 End: 02-14-2023 Hemoglobin A1c in Blood HGB A1C Lab Routine Well adult exam Expected: 12/15/2022, Expires: 02/14/2023 [facility] Work Phone: Comment on above: Expected: 12/15/2022, Expires: 3 Start: 12-15-2022 End: 02-14-2023 Lipid 1996 panel - Serum or Plasma LIPID PANEL BASIC Lab Routine Well adult exam Hypercholesterolemia Expected: 12/15/2022, Expires: 02/14/2023 [facility] Work Phone: Comment on above: Expected: 12/15/2022, Expires: 3 Start: 12-15-2022 End: 02-14-2023 Thyrotropin [Units/volume] in Serum or Plasma TSH BLD Lab Routine Well adult exam Expected: 12/15/2022, Expires: 02/14/2023 [facility] Work Phone: Comment on above: Expected: 12/15/2022, Expires: 3 Start: 08-27-2022 DIABETES SCREEN DIABETES SCREEN [facility] Start: 07-31-2022 Influenza vaccination INFLUENZA (#1) [facility] Start: 05-01-2022 Mammography MAMMOGRAM [facility] Start: 03-01-2022 COVID-19 VACCINE (4 - Booster for Moderna series) COVID-19 VACCINE (4 - Booster for Moderna series) [facility] Start: 12-26-2021 COVID-19 VACCINE (4 - Booster for Moderna series) COVID-19 VACCINE (4 - Booster for Moderna series) [facility] Start: 12-26-2021 COVID-19 VACCINE (4 - Moderna series) COVID-19 VACCINE (4 - Moderna series) [facility] Start: 01-14-2021 HPV TESTING HPV TESTING [facility] Start: 01-14-2021 PAP TESTING PAP TESTING [facility] Start: 01-14-2021 Screening for malignant neoplasm of cervix [facility] Start: 09-07-2020 Influenza vaccination LUNG CANCER SCREENING [facility] Start: 09-07-2020 Screening for malignant neoplasm of lung Lung Cancer Screening [facility] Start: 08-27-2020 FECAL OCCULT BLOOD FECAL OCCULT BLOOD [facility] Start: 08-27-2020 Screening for malignant neoplasm of colon Fecal Occult Blood [facility] Start: 2020 RSV Vaccine (1 - 1-dose 60+ series) RSV Vaccine (1 - 1-dose 60+ series) [facility] Start: 08-17-2019 Adult depression screening assessment DEPRESSION SCREENING [facility] Start: 2010 SHINGRIX VACCINE (1 of 2) SHINGRIX VACCINE (1 of 2) [facility] Start: 2005 COLOGUARD (FIT-DNA) COLOGUARD (FIT-DNA) [facility] Start: [address] COLONOGRAPHY [facility] Start: 2005 Screening for malignant neoplasm of colon [facility] Start: 2005 SIGMOIDOSCOPY SIGMOIDOSCOPY [facility] Start: 1978 Anxiety Screening Anxiety Screening [facility] Start: 1978 Depression Screening Depression Screening [facility] Start: 1978 HIV SCREENING HIV SCREENING [facility] Start: 1978 HIV screening HIV Screening [facility] Start: 1966 PNEUMOCOCCAL (1 - PCV) PNEUMOCOCCAL (1 - PCV) [facility] Antibody titer measurement W [facility] Antibody to PCNA measurement [facility] End: 11-13-2025 DBT Breast - bilateral screening CHICHO SCREENING W ESEQUIEL Radiology Routine Encounter for screening mammogram for breast cancer Well adult exam 1 Occurrences starting 10/14/2024 until 11/13/2025 [facility] Work Phone: Comment on above: 1 Occurrences starting 10/14/2024 until 11/13/2025 FUNGAL CULTURE HAIR,SKIN,NAILS FUNGAL CULTURE HAIR,SKIN,NAILS Microbiology Routine Rash 03/04/2023 10:00 AM EDT [facility] Work Phone: Hzv zoster vacc recombinant adjuvanted im njx ZOSTER VACCINE, RECOMBINANT (SHINGRIX) Immunization/Injection Routine Encounter for immunization Ordered: 02/17/2023 [facility] Work Phone: Comment on above: Ordered: 02/17/2023 End: 12-04-2025 MG Breast - right Diagnostic for implant CHICHO DIAGNOSTIC RIGHT Radiology Routine Abnormal mammogram 1 Occurrences starting 11/04/2024 until 12/04/2025 [facility] Comment on above: 1 Occurrences starting 11/04/2024 until 12/04/2025 Midbody Ab [Titer] i n Serum by Immunofluorescence [facility] Mitotic spindle appa ratus Ab [Titer] in Serum or Plasma [facility] Multiple nuclear dot s nuclear IgG pattern [Titer] in Serum by Immunofluorescence [facility] Neuronal nuclear Ab [Presence] in Serum by Immunofluorescence [facility] End: 07-11-2023 Screening mammography bi 2-view breast inc cad CHICHO SCREENING Radiology Routine Encounter for screening mammogram for breast cancer 1 Occurrences starting 06/11/2022 until 07/11/2023 [facility] Work Phone: Comment on above: 1 Occurrences starting 06/11/2022 until 07/11/2023 Serum NEERAJ pattern [facility] Speckled nuclear Ab pattern [Titer] in Serum [facility] End: 12-04-2025 US Breast - right limited US BREAST LTD RIGHT Radiology Routine Abnormal mammogram 1 Occurrences starting 11/04/2024 until 12/04/2025 [facility] Work Phone: Comment on above: 1 Occurrences starting 11/04/2024 until 12/04/2025 [facility] Immunizations Immunization Date Immunization Notes Care Provider Cari eldridge 10-14-2024 influenza, seasonal, injectable Leida Ruano DISTANCE LEARNING UNIT LEADER.PAINT DEPARTMENT SUPERVISOR Work Phone: [facility] 10-14-2024 respiratory syncytia l virus (RSV) vaccine, bivalent (ABRYSVO) Leida Ruano DISTANCE LEARNING UNIT LEADER.PAINT DEPARTMENT SUPERVISOR Work Phone: [facility] 03-02-2023 zoster vaccine recombinant Mi Nurse Work Phone: [facility] Work Phone: 12-15-2022 pneumococcal Conjuga te, unspecified formulation Charanjit Matson DO Work Phone: [facility] Work Phone: 12-15-2022 influenza, injectabl e, quadrivalent, contains preservative Charanjit Matson DO Work Phone: [facility] Work Phone: 12-15-2022 pneumococcal (PCV20) vaccine, 20 valent (PREVNAR 20) Charanjit Matson DO Work Phone: [facility] Work Phone: 12-15-2022 zoster vaccine recombinant Charanjit Matson DO Work Phone: [facility] Work Phone: 12-15-2022 influenza virus vaccine, unspecified formulation Us 1 Work Phone: [facility] 02-10-2022 tuberculin skin test ; purified protein derivative solution, intradermal Us 1 Work Phone: [facility] 01-28-2022 tuberculin skin test ; purified protein derivative solution, intradermal Us 1 Work Phone: [facility] 08-26-2019 influenza, injectabl e, quadrivalent, contains preservative Charanjit Matson DO Work Phone: [facility] 08-17-2018 influenza, injectabl e, quadrivalent, contains preservative Charanjit Matson DO Work Phone: [facility] 09-30-2016 tetanus toxoid, redu david diphtheria toxoid, and acellular pertussis vaccine, adsorbed Charanjit Matson DO Work Phone: [facility] Payers Date Payer Category Payer Self-pay [id number] 2021 Unknown ANTHEM BLUE CARD PPO OOS [id number] 2021-Present [phone] [id number] [place] [address] PPO [id number] 2021 Unknown [id number] 2021 Unknown [id number] Unknown [id number] Unknown [id number] Unknown [id number] Social History Date Type Detail Facility Start: 1972 End: 10-14-2024 Tobacco smoking status OKIS Smokes tobacco daily [facility] Work Phone: Start: 1972 End: 2014 History of tobacco use Cigarette Smoker [facility] Work Phone: Start: 01-14-2016 End: 07-08-2023 Cigarettes smoked current (pack per day) - Reported 1 [facility] Start: 01-14-2016 End: 10-14-2024 Tobacco use and exposure Smokeless tobacco non-user [facility] Work Phone: Start: 12-14-2020 End: 10-14-2024 Alcohol intake Current drinker of alcohol (finding) [facility] Start: 09-07-2019 End: 12-15-2022 Tobacco Comment -4 years for quit so 38 pack years [facility] Start: 1960 Sex Assigned At Female [facility] Start: 12-11-2022 History SDOH Alcohol Frequency 1 [facility] Start: 12-11-2022 History SDOH Alcohol Std Drinks 0 [facility] Start: 12-11-2022 History SDOH Social Connections Phone 2 [facility] Start: 12-11-2022 History SDOH Social Connections Get Together 98 [facility] Start: 12-11-2022 History SDOH Social Connections Living 5 [facility] Start: 12-11-2022 History SDOH Physical Activity MPS 3 [facility] Start: 12-11-2022 End: 07-08-2023 Social connection and isolation panel [facility] How often do you get together with friends or relatives? Patient refused [facility] Do you belong to any clubs or organizations such as congregation groups, unions, fraternal or athletic groups, or school groups? Yes [facility] Are you now , , , , never or living with a partner? [facility] How often to you hav e a drink containing alcohol? Never [facility] Do you feel stress - tense, restless, nervous, or anxious, or unable to sleep at night because your mind is troubled all the time - these days [OSQ] Only a little [facility] The food that (I/we) bought just didn't last, and (I/we) didn't have money to get more. Never true [facility] In the past 12 month s, was there a time when you were not able to pay the mortgage or rent on time? No [facility] Start: 08-30-2019 Gender identity Identifies as female gender (finding) [facility] Start: 08-26-2019 Sexual orientation Heterosexual (finding) [facility] Work Phone: Start: 10-04-2019 Tobacco smoking status NHIS Unknown if ever smoked [facility] Start: 10-04-2019 None [facility] Start: 10-04-2019 Alone [facility] Do you feel stress - tense, restless, nervous, or anxious, or unable to sleep at night because your mind is troubled all the time - these days [OSQ] Not at all [facility] Start: 10-04-2019 Tobacco smoking status NHIS Ex-smoker (finding) [facility] Start: 03-02-2025 Sex Female (finding) [facility] Clinical Notes 12-15-2022 to 11-08-2024 Telephone Encounter - Leida Ruano APRN.CNP - 11/08/2024 2:53 PM ESTTelephone Encounter - Leida Ruano APRN.CNP - 11/08/2024 2:53 PM ESTSLesley lindsey, RT(R) - 11/04/2024 7:10 AM EST Note Date & Type Note Facility 11-08-2024 Telephone encounter Note Noted. Leida Ruano APRN.CNP [facility] 11-08-2024 Miscellaneous Notes Noted. Leida Ruano APRN.CNP Pt reports she just had US and Diagnostic completed in JUN and she is not completing again. Nerissa Ceja MA Please let her know we received her mammogram results and the radiologist is recommending additional view of her right breast, please assist her to schedule. Leida Ruano APRN.CNP documented in this encounter [facility] 11-04-2024 Telephone encounter Note Pt reports she just had US and Diagnostic completed in JUN and she is not completing again. Nerissa Ceja MA [facility] 11-04-2024 Telephone encounter Note Please let her know we received her mammogram results and the radiologist is recommending additional view of her right breast, please assist her to schedule. Leida Ruano APRN.CNP [facility] 11-04-2024 Note IMPRESSION: Focal asymmetry in the right breast requires additional evaluation. Diagnostic mammogram is recommended. Please note that this finding was recommended for diagnostic follow up as per the 07/26/2024 exam. BI-RADS Category 0: Incomplete: Needs Additional Imaging Evaluation RISK: Based on the Tyrer-Cuzick (TC) risk assessment model, this patient has a 6.6% lifetime risk of developing breast cancer, meaning they are at average risk for developing breast cancer. However, this is only an estimate based on available history provided on the patient's questionnaire. We encourage all patients to talk with their providers about these results, further recommendations for managing breast health, and appropriate supplemental screening options if the patient has dense breast tissue. Interpreting Radiologist: Aleta Mills M.D. Electronically signed on: 11/04/2024 Origination Specialist: FEI Transcribe Date/Time: Nov 04 2024 7:00A Dictated by: ALETA MILLS MD This examination was interpreted and the report reviewed and electronically signed by: ALETA MILLS MD on Nov 04 2024 10:35AM [facility] DIVISION OF RADIOLOGY 11-04-2024 History of Present illness Narrative Radiology Service Progress Note PATIENT NAME: Polo Ellis DATE OF SERVICE: November 04, 2024 TIME: 6:59 AM PATIENT IDENTITY VERIFICATION COMPLETED USING TWO (2) [...] PATIENT PRESENTS WITH AN IMPLANTABLE OR ATTACHED HAND CUTTER APPRENTICE: No RADIOLOGY DEPARTMENT: Mammography PERIPHERAL IV DATA: Not applicable SIGNED BY: RT Koby(R) November 04, 2024 6:59 AM documented in this encounter [facility] 11-04-2024 Note HNO ID: [id number] Author: LESLEY VALIENTE RT(R) Service: ? Author Type: Technologist Type: Progress Notes Filed: 11/04/2024 06:59 Note Text: Radiology Service Progress Note PATIENT NAME: Polo Ellis DATE OF SERVICE: November 04, 2024 TIME: 6:59 AM PATIENT IDENTITY VERIFICATION COMPLETED USING TWO (2) [...] PATIENT PRESENTS WITH AN IMPLANTABLE OR ATTACHED HAND CUTTER APPRENTICE: No RADIOLOGY DEPARTMENT: Mammography PERIPHERAL IV DATA: Not applicable SIGNED BY: RT Koby(R) November 04, 2024 6:59 AM [facility] 10-14-2024 Telephone encounter Note Referral and Office notes faxed as below. [facility] 10-14-2024 Miscellaneous Notes Referral and Office notes faxed as below. Please fax her rheum consult to Dr. Cleaning's office. Leida Ruano APRN.PAINT DEPARTMENT SUPERVISOR documented in this encounter [facility] 10-14-2024 Telephone encounter Note Please fax her rheum consult to Dr. Cleaning's office. Leida Ruano APRN.PAINT DEPARTMENT SUPERVISOR [facility] 10-14-2024 Note HNO ID: [id number] Author: LEIDA RUANO APRN.RADHA Service: ? Author Type: Nurse Practitioner Type: Progress Notes Filed: 10/18/2024 18:31 Note Text: Cutaneous LupuChief Complaint Patient presents with: Physical: Dx with Subacute cutaneous lupus, see notes in scanned docs, med list updated HPI Polo Ellis is a 64 year old female who presents here today for Above Complaints.. 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 Dx with this by [facility] in February 2024. Has never seen a figurine maker. Denies concerns or complaints today. Denies CP, SOB, palpitations, new or persistent h/a, n/v/d, difficulty swallowing, increased thirst or urination. Does have large reddish purple lupus rash to her back. Flares come and go, seems to be flared up this morning, is very itchy. Past medical history, appointments, medications, allergies reviewed. [...] EGD 12/14/2020 LAPAROSCOPY DIAGNOSTIC 11/30/1984 LEEP PROCEDURE (TALENT DEVELOPMENT COORDINATOR DEPT)_*[place] 11/30/2012 Family History FAMILY HISTORY Problem Relation Age of Onset Hypertension Mother other (dementia) Mother other (MVA) Father Diabetes Brother Hypertension Sister Diabetes Sister Cancer Sister Diabetes Paternal Grandmother Breast Cancer Sister Hypertension Sister Patient Allergies ALLERGIES No Known Allergies Current Medications Current Outpatient Medications on File Prior to Visit Medication Sig lactobacillus combination no.4 (PROBIOTIC) 3 billion cell cap Take by mouth. Takes gummy clobetasol (TEMOVATE) 0.05 % cream apply to affected area OF BACK twice a day for 2 weeks then take ... (REFER TO PRESCRIPTION NOTES). MULTIVITAMIN ORAL Take by mouth. BIOTIN ORAL Take by mouth. No current facility-administered medications on file prior to visit. Social History Social History Tobacco Use Smoking status: Every Day Current packs/day: 0.00 Average packs/day: 1 pack/day for 42.0 years (42.0 ttl pk-yrs) Types: Cigarettes Start date: 1972 Last attempt to quit: 2014 Years since quittin.7 Smokeless tobacco: Never Tobacco comments: -4 years for quit so 38 pack years Substance Use Topics Alcohol use: Yes Alcohol/week: 0.0 - 1.3 standard drinks of alcohol Comment: occasionally Drug use: No Review of Symptoms REVIEW OF SYSTEMS See HPI, otherwise negative EXAM: BP 118/82 (BP Site: Left Arm, BP Position: Sitting, BP Cuff Size: Regular Adult) Pulse 67 Resp 16 Ht 165 cm (5' 4.96) Wt 62.8 kg (138 lb 6.4 oz) SpO2 100% BMI 23.06 kg/m? General Appearance: Well appearing, alert, in no acute distress, well-hydrated, well nourished.. Skin: large deep red/purple raised plaque-like rash to majority of back. Head: Normocephalic, no masses, lesions, tenderness or abnormalities. Eyes: Anicteric sclera. Pupils are equally round and reactive to light. Extraocular movements are intact. . Ears: External ears normal, canals clear. Nose/Sinuses: Nares normal, septum midline, mucosa normal, no drainage or sinus tenderness. Oropharynx: Lips, mucosa, and tongue normal, teeth and gums normal, oropharynx normal. Neck: Supple, no adenopathy; thyroid symmetric, normal size, no bruits. Back:no pain to palpation of vertebrae, good flexion and extension, good range of motion, no muscle tenderness, motor and sensory appear to be normal Lungs: Lungs clear to auscultation. No wheezing, rhonchi, rales.. Heart: RRR without murmur, gallop, or rubs. No ectopy. Abdomen: Normal abdominal exam, Abdomen soft, non-tender. Bowel sounds normal. No masses, organomegaly. Extremities: No deformities, edema, skin discoloration, clubbing or cyanosis. Good capillary refill. . Musculoskeletal: No joint swelling, deformity, or tenderness. Peripheral Pulses: Normal. Neurologic: Gait normal. Reflexes normal and symmetric. Sensation grossly intact.. Lymph Nodes: No cervical lymphadenopathy and No supraclavicular lymphadenopathy. Psychiatric: pleasant, cooperative. Health Maintenance List Depression Screening Never done Anxiety Screening Never done HIV Screening Never done Lung Cancer Screening due on 09/07/2020 Cervical Cancer Screening due on 01/14/2021 Influenza Vaccine(1) due on 07/31/2024 Mammogram Screening due on 12/08/2024 Covid-19 Vaccine( season) due on 10/14/2025 (more content not included)... [facility] 10-14-2024 History of Present illness Narrative Cutaneous LupuChief Complaint Patient presents with: Physical: Dx with Subacute cutaneous lupus, see notes in scanned docs, med list updated HPI Polo Ellis is a 64 year old female who presents here today for Above Complaints.. 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 Dx with this by [facility] in February 2024. Has never seen a figurine maker. Denies concerns or complaints today. Denies CP, SOB, palpitations, new or persistent h/a, n/v/d, difficulty swallowing, increased thirst or urination. Does have large reddish purple lupus rash to her back. Flares come and go, seems to be flared up this morning, is very itchy. Past medical history, appointments, medications, allergies reviewed. [...] EGD 12/14/2020 LAPAROSCOPY DIAGNOSTIC 11/30/1984 LEEP PROCEDURE (TALENT DEVELOPMENT COORDINATOR DEPT)_*[place] 11/30/2012 Family History FAMILY HISTORY Problem Relation Age of Onset Hypertension Mother other (dementia) Mother other (MVA) Father Diabetes Brother Hypertension Sister Diabetes Sister Cancer Sister Diabetes Paternal Grandmother Breast Cancer Sister Hypertension Sister Patient Allergies ALLERGIES No Known Allergies Current Medications Current Outpatient Medications on File Prior to Visit Medication Sig lactobacillus combination no.4 (PROBIOTIC) 3 billion cell cap Take by mouth. Takes gummy clobetasol (TEMOVATE) 0.05 % cream apply to affected area OF BACK twice a day for 2 weeks then take ... (REFER TO PRESCRIPTION NOTES). MULTIVITAMIN ORAL Take by mouth. BIOTIN ORAL Take by mouth. No current facility-administered medications on file prior to visit. Social History Social History Tobacco Use Smoking status: Every Day Current packs/day: 0.00 Average packs/day: 1 pack/day for 42.0 years (42.0 ttl pk-yrs) Types: Cigarettes Start date: 1972 Last attempt to quit: 2014 Years since quittin.7 Smokeless tobacco: Never Tobacco comments: -4 years for quit so 38 pack years Substance Use Topics Alcohol use: Yes Alcohol/week: 0.0 - 1.3 standard drinks of alcohol Comment: occasionally Drug use: No Review of Symptoms REVIEW OF SYSTEMS See HPI, otherwise negative EXAM: BP 118/82 (BP Site: Left Arm, BP Position: Sitting, BP Cuff Size: Regular Adult) Pulse 67 Resp 16 Ht 165 cm (5' 4.96) Wt 62.8 kg (138 lb 6.4 oz) SpO2 100% BMI 23.06 kg/m General Appearance: Well appearing, alert, in no acute distress, well-hydrated, well nourished.. Skin: large deep red/purple raised plaque-like rash to majority of back. Head: Normocephalic, no masses, lesions, tenderness or abnormalities. Eyes: Anicteric sclera. Pupils are equally round and reactive to light. Extraocular movements are intact. . Ears: External ears normal, canals clear. Nose/Sinuses: Nares normal, septum midline, mucosa normal, no drainage or sinus tenderness. Oropharynx: Lips, mucosa, and tongue normal, teeth and gums normal, oropharynx normal. Neck: Supple, no adenopathy; thyroid symmetric, normal size, no bruits. Back:no pain to palpation of vertebrae, good flexion and extension, good range of motion, no muscle tenderness, motor and sensory appear to be normal Lungs: Lungs clear to auscultation. No wheezing, rhonchi, rales.. Heart: RRR without murmur, gallop, or rubs. No ectopy. Abdomen: Normal abdominal exam, Abdomen soft, non-tender. Bowel sounds normal. No masses, organomegaly. Extremities: No deformities, edema, skin discoloration, clubbing or cyanosis. Good capillary refill. . Musculoskeletal: No joint swelling, deformity, or tenderness. Peripheral Pulses: Normal. Neurologic: Gait normal. Reflexes normal and symmetric. Sensation grossly intact.. Lymph Nodes: No cervical lymphadenopathy and No supraclavicular lymphadenopathy. Psychiatric: pleasant, cooperative. Health Maintenance List Depression Screening Never done Anxiety Screening Never done HIV Screening Never done Lung Cancer Screening due on 09/07/2020 Cervical Cancer Screening due on 01/14/2021 Influenza Vaccine(1) due on 07/31/2024 Mammogram Screening due on 12/08/2024 Covid-19 Vaccine( - 2023- season) due on 10/14/2025 Colorectal Cancer Screening due on 12/14/2025 Diabetes Screening due on 12/18/2025 DTaP,Tdap,Td Vaccine(2 - Td or Tdap) due on 09/30/2026 Lipid Screening due on 12/18/2027 RSV Vaccine(1 - 1-dose 75+ series) due on 2035 Hepatitis C Screening Completed Shingrix Vaccine Completed Pneumococcal Vaccine Completed Data reviewed Previous records, office notes ASSESSMENT/PLAN: 1. Well adult exam - ICD9: V70.0, ICD10: Z00.00 (primary diagnosis) - Counseled on healthy diet and regular exercise - Follow up for annual exam in one year - DEPRESSION SCREENING - INFLUENZA VACCINE, AGE 6MO-64YR, TRIVALENT (AFLURIA, FLULAVAL, FLUVIRIN, FLUZONE) - ANXIETY SCREENING - CHICHO SCREENING W ESEQUIEL - RSV VACCINE, BIVALENT (ABRYSVO) - COMPLETE BLOOD COUNT - COMPREHENSIVE METABOLIC PANEL - HEMOGLOBIN A1C - THYROID STIMULATING HORMONE - LIPID PANEL BASIC - VITAMIN D 25 HYDROXY - VITAMIN B12 2. Elevated LFTs - ICD9: 790.6, ICD10: R79.89 - COMPREHENSIVE METABOLIC PANEL 3. Cutaneous lupus erythematosus - ICD9: 695.4, ICD10: L93.2 Recommend she be established with rheumatology. She is requesting to see Dr. Cleaning (outside of [facility]) to stay here in [place]. Will fax this consult to her office. - CONSULT TO RHEUM/IMMUN DISEASE - CLOBETASOL 0.05 % TOPICAL CREAM 4. Hyperglycemia - ICD9: 790.29, ICD10: R73.9 - COMPREHENSIVE METABOLIC PANEL - HEMOGLOBIN A1C 5. Hypercholesterolemia - ICD9: 272.0, ICD10: E78.00 - LIPID PANEL BASIC 6. Screening for depression - ICD9: V79.0, ICD10: Z13.31 - DEPRESSION SCREENING 7. Encounter for immunization - ICD9: V03.89, ICD10: Z23 - INFLUENZA VACCINE, AGE 6MO-64YR, TRIVALENT (AFLURIA, FLULAVAL, FLUVIRIN, FLUZONE) - RSV VACCINE, BIVALENT (ABRYSVO) 8. Encounter for screening examination for other mental health and behavioral disorders - ICD9: V79.8, ICD10: Z13.39 - ANXIETY SCREENING 9. Encounter for screening mammogram for breast cancer - ICD9: V76.12, ICD10: Z12.31 - CHICHO SCREENING W ESEQUIEL 10. Encounter for vitamin deficiency screening - ICD9: V77.99, ICD10: Z13.21 - VITAMIN D 25 HYDROXY - VITAMIN B12 Leida Ruano APRN.PAINT DEPARTMENT SUPERVISOR documented in this encounter [facility] 07-26-2024 History of Present illness Narrative Radiology Service Progress Note PATIENT NAME: Polo Ellis DATE OF SERVICE: July 26, 2024 TIME: 4:37 PM PATIENT IDENTITY VERIFICATION COMPLETED USING TWO [...] PATIENT PRESENTS WITH AN IMPLANTABLE OR ATTACHED HAND CUTTER APPRENTICE: No RADIOLOGY DEPARTMENT: Ultrasound PERIPHERAL IV DATA: Not applicable SIGNED BY: Anamika Magana RDMS July 26, 2024 4:37 PM documented in this encounter [facility] 07-26-2024 Note HNO ID: [id number] Author: ANAMIKA MAGANA RDMS Service: ? Author Type: Shank Turner Type: Progress Notes Filed: 07/26/2024 16:37 Note Text: Radiology Service Progress Note PATIENT NAME: Polo Ellis DATE OF SERVICE: July 26, 2024 TIME: 4:37 PM PATIENT IDENTITY VERIFICATION COMPLETED USING TWO [...] PATIENT PRESENTS WITH AN IMPLANTABLE OR ATTACHED HAND CUTTER APPRENTICE: No RADIOLOGY DEPARTMENT: Ultrasound PERIPHERAL IV DATA: Not applicable SIGNED BY: Anamika Magana RDMS July 26, 2024 4:37 PM [facility] 07-26-2024 History of Present illness Narrative Radiology Service Progress Note PATIENT NAME: Polo Ellis DATE OF SERVICE: July 26, 2024 TIME: 2:33 PM PATIENT IDENTITY VERIFICATION COMPLETED USING TWO [...] PATIENT PRESENTS WITH AN IMPLANTABLE OR ATTACHED HAND CUTTER APPRENTICE: No RADIOLOGY DEPARTMENT: Mammography PERIPHERAL IV DATA: Not applicable SIGNED BY: RT Koby(Zoë) July 26, 2024 2:33 PM documented in this encounter [facility] 07-26-2024 Note HNO ID: [id number] Author: LESLEY VALIENTE RT (R) Service: ? Author Type: Technologist Type: Progress Notes Filed: 07/26/2024 14:34 Note Text: Radiology Service Progress Note PATIENT NAME: Polo Ellis DATE OF SERVICE: July 26, 2024 TIME: 2:33 PM PATIENT IDENTITY VERIFICATION COMPLETED USING TWO [...] PATIENT PRESENTS WITH AN IMPLANTABLE OR ATTACHED HAND CUTTER APPRENTICE: No RADIOLOGY DEPARTMENT: Mammography PERIPHERAL IV DATA: Not applicable SIGNED BY: MARINA Whalen) July 26, 2024 2:33 PM [facility] 01-24-2024 Note HNO ID: [id number] Author: TROY LEDESMA MD Service: ? Author Type: Physician Type: Progress Notes Filed: 01/24/2024 06:41 Note Text: HISTORY AND PHYSICAL - BREAST COMPLAINT Polo Ellis 1960 REFERRING PHYSICIAN: Leida Ruano CHIEF COMPLAINT: abnormal right breast imaging HPI: [...] dated: 12/08/2023 mammogram and 05/01/2021 mammogram - [facility]. Color flow and real-time ultrasound of the [...] by me today at the request of Leida Ruano for my opinion and advice regarding abnormal [...] EGD 12/14/2020 LAPAROSCOPY DIAGNOSTIC 11/30/1984 LEEP PROCEDURE (TALENT DEVELOPMENT COORDINATOR DEPT)_*[place] 11/30/2012 Current Outpatient Medications Medication Sig [...] peripheral arterial stent. Respiratory: The patient denies (more content not included)... [facility] 01-24-2024 History of Present illness Narrative HISTORY AND PHYSICAL - BREAST COMPLAINT Polo Ellis 1960 REFERRING PHYSICIAN: Leida Ruano CHIEF COMPLAINT: abnormal right breast imaging HPI: [...] dated: 12/08/2023 mammogram and 05/01/2021 mammogram - [facility]. Color flow and real-time ultrasound of the [...] by me today at the request of Leida Ruano for my opinion and advice regarding abnormal [...] EGD 12/14/2020 LAPAROSCOPY DIAGNOSTIC 11/30/1984 LEEP PROCEDURE (TALENT DEVELOPMENT COORDINATOR DEPT)_*[place] 11/30/2012 Current Outpatient Medications Medication Sig [...] entered by the nurse and reviewed by sc Nursing Notes: Abbie Castelan LPN 01/22/2024 8:39 [...] C (98.9 F), height 165.1 cm (5' 5), weight 64.6 kg (142 lb 6.4 oz), [...] diagnosis) My findings have been communicated to Leida Ruano via shared medical record. This note will be forwarded to Charanjit Matson DO. Return to Clinic: The patient is instructed to follow-up with me in 6 months, you should obtain a mammogram and ultrasound prior to this follow up visit. Troy Ledesma MD documented in this encounter [facility] 01-22-2024 Nurse Note REVIEW OF SYSTEMS: General: [...] Abbie Castelan LPN documented in this encounter [facility] 01-05-2024 History of Present illness Narrative Radiology Service Progress Note PATIENT NAME: Polo Ellis DATE OF SERVICE: January 05, 2024 TIME: [...] PATIENT PRESENTS WITH AN IMPLANTABLE OR ATTACHED HAND CUTTER APPRENTICE: No RADIOLOGY DEPARTMENT: Ultrasound PERIPHERAL IV DATA: Not applicable SIGNED BY: Anamika Magana RDMS January 05, 2024 4:25 PM documented in this encounter [facility] 01-05-2024 Note HNO ID: [id number] Author: ANAMIKA MAGANA RDMS Service: ? Author Type: Shank Turner Type: Progress Notes Filed: 01/05/2024 16:25 Note Text: Radiology Service Progress Note PATIENT NAME: Polo Ellis DATE OF SERVICE: January 05, 2024 TIME: [...] PATIENT PRESENTS WITH AN IMPLANTABLE OR ATTACHED HAND CUTTER APPRENTICE: No RADIOLOGY DEPARTMENT: Ultrasound PERIPHERAL IV DATA: Not applicable SIGNED BY: Anamika Magana RDMS January 05, 2024 4:25 PM [facility] 01-05-2024 History of Present illness Narrative Radiology Service Progress Note PATIENT NAME: Polo Ellis DATE OF SERVICE: January 05, 2024 TIME: [...] PATIENT PRESENTS WITH AN IMPLANTABLE OR ATTACHED HAND CUTTER APPRENTICE: No RADIOLOGY DEPARTMENT: Mammography PERIPHERAL IV DATA: Not applicable SIGNED BY: Alonso Tyson January 05, 2024 1:38 PM documented in this encounter [facility] 01-05-2024 Note HNO ID: [id number] Author: ALCON RODRÍGUEZ Mammo Tech Service: ? Author Type: Shank Turner Type: Progress Notes Filed: 01/05/2024 14:00 Note Text: Radiology Service Progress Note PATIENT NAME: Polo Ellis DATE OF SERVICE: January 05, 2024 TIME: [...] PATIENT PRESENTS WITH AN IMPLANTABLE OR ATTACHED HAND CUTTER APPRENTICE: No RADIOLOGY DEPARTMENT: Mammography PERIPHERAL IV DATA: Not applicable SIGNED BY: Alonso Tyson January 05, 2024 1:38 PM [facility] 12-08-2023 Note HNO ID: [id number] Author: LESLEY VALIENTE RT(R) Service: ? Author Type: Technologist Type: Progress Notes Filed: 12/08/2023 14:28 Note Text: Radiology Service Progress Note PATIENT NAME: Polo Ellis DATE OF SERVICE: December 08, 2023 TIME: [...] PERIPHERAL IV DATA: Not applicable SIGNED BY: Lesley Valiente RT(R) December 08, 2023 2:27 PM [facility] 07-08-2023 History of Present illness Narrative Chief Complaint Patient presents with: Rash: Lower back and shoulder blades x 7 months, seen in 4/5 HPI Polo Ellis is a 63 year old female who presents here today for Above Complaints. Today: Has had rash to lower back that started about 7 months ago and has spread to upper back. Feels like pins poking and is intermittent, worse with being hot. Nothing has helped-cortisone cream, antifungal, Gold loepz, lotion. Requesting possible referral to dermatology. Past [...] EGD 12/14/2020 LAPAROSCOPY DIAGNOSTIC 11/30/1984 LEEP PROCEDURE (TALENT DEVELOPMENT COORDINATOR DEPT)_*[place] 11/30/2012 Family History FAMILY HISTORY Problem [...] % TOPICAL CREAM - CONSULT TO DERMATOLOGY Leida Ruano APRN.CNP documented in this encounter [facility] 03-10-2023 Miscellaneous Notes Patient given results and verbalized understanding of instructions given. Yolis Morrow Please notify no fungal infection found on culture at 6 days. Will notify if becomes positive. documented in this encounter [facility] 03-04-2023 History of Present illness Narrative Subjective [...] EGD 12/14/2020 LAPAROSCOPY DIAGNOSTIC 11/30/1984 LEEP PROCEDURE (TALENT DEVELOPMENT COORDINATOR DEPT)_*[place] 11/30/2012 ALLERGIES Patient has no known [...] results - FUNGAL CULTURE HAIR,SKIN,NAILS Christianne Connors APRN.RADHA documented in this encounter [facility] 03-02-2023 History of Present illness Narrative Patient presents for Shingrix vaccine. Denies any problems at this time. Tolerated injection well. Shanita Sahni LPN documented in this encounter [facility] 02-17-2023 Miscellaneous Notes Order placed Charanjit Matson DO Patient scheduled for nurse visit 03/02/23 to receive Shingrix vaccine. Please place order at this time. Shanita Sahni LPN documented in this encounter [facility] 12-19-2022 Miscellaneous Notes Patient notified via [employer]. Please inform patient that her recent lab [...] on any fried/fast/fatty animal fat foods. Charanjit Matson DO documented in this encounter [facility] 12-15-2022 History of Present illness Narrative CC: Polo Ellis is a 62 year old female who [...] EGD 12/14/2020 LAPAROSCOPY DIAGNOSTIC 11/30/1984 LEEP PROCEDURE (TALENT DEVELOPMENT COORDINATOR DEPT)_*[place] 11/30/2012 Social History: Social History Tobacco [...] diet of 1000 mg/day for under 50, 5714-9298 mg/day for 50+ - check fasting labs [...] ordered, need for pap pelvic appointment Charanjit Matson DO To ER if develops chest pain, shortness of breath, or severe worsening of symptoms. Discussed risks, benefits, alternatives, and potential side effects of medications. Patient expressed understanding and agreed with the plan. Charanjit Matson DO [address] [place] [address] documented in this encounter [facility] 12-15-2022 Instructions Charanjit Matson DO - 12/15/2022 3:38 PM EST Take Tylenol 500 mg twice a day with meals for the next 3 days to help prevent any muscle aches or flu like feeling after Shingles vaccine documented in this encounter [facility] Evaluation note Diagnosis Encounter for screening mammogram for breast cancer [facility]* Diagnosis Well adult exam- Primary Routine general medical examination at a health care facility Need for influenza vaccination Need for prophylactic vaccination and inoculation against influenza Need for shingles vaccine Need for prophylactic vaccination and inoculation against other viral diseases Hypercholesterolemia Pure hypercholesterolemia Post-menopausal Asymptomatic postmenopausal status (age-related) (natural) [facility] Diagnosis Hyperglycemia- Primary Other abnormal glucose Elevated LFTs Other abnormal blood chemistry [facility] Diagnosis Encounter for immunization- Primary Need for other specified prophylactic vaccination against single bacterial disease [facility] Diagnosis Encounter for immunization- Primary Need for other specified prophylactic vaccination against single bacterial disease [facility] Diagnosis Rash- Primary Rash and other nonspecific skin eruption [facility]* Diagnosis Rash- Primary Rash and other nonspecific skin eruption [facility]* Diagnosis Abnormal mammogram Abnormal mammogram, unspecified [facility] Diagnosis Abnormal mammogram Abnormal mammogram, unspecified [facility]* Diagnosis Abnormal finding on breast imaging- Primary Other (abnormal) findings on radiological examination of breast [facility] noteNo assessment information availableWACMC [facility] Work Phone: Evaluation note* Diagnosis Abnormal finding on breast imaging Other (abnormal) findings on radiological examination of breast [facility] Diagnosis Abnormal finding on breast imaging Other (abnormal) findings on radiological examination of breast [facility]* Diagnosis Well adult exam- Primary Routine general medical examination at a health care facility Elevated LFTs Other abnormal blood chemistry Cutaneous lupus erythematosus Lupus erythematosus Hyperglycemia Other abnormal glucose Hypercholesterolemia Pure hypercholesterolemia Screening for depression Encounter for immunization Need for other specified prophylactic vaccination against single bacterial disease Encounter for screening examination for other mental health and behavioral disorders Encounter for screening mammogram for breast cancer Encounter for vitamin deficiency screening Screening for other and unspecified endocrine, nutritional, metabolic, and immunity disorders [facility]* Diagnosis Encounter for screening mammogram for breast cancer Well adult exam Routine general medical examination at a health care facility [facility]* Diagnosis Abnormal mammogram- Primary Abnormal mammogram, unspecified documented in this encounter [facility] for referral (narrative)* Diagnostic Procedure Only (Routine) - Pending Review Specialty Diagnoses / Procedures Referred By Link souza Referred To Contact [facility] Diagnoses Encounter for screening mammogram for breast cancer Procedures CHICHO SCREENING SCREENING MAMMOGRAPHY BI 2-VIEW BREAST INC CAD Charanjit Matson DO [address] [place] [address] [facility] [address] [place] [address] Referral ID Status Reason Start Date Expiration Date Visits Requested Visits Authorized [id number] Pending Review Auto-Generat ed Referral 06/11/2022 07/11/2023 [address] [facility] for referral (narrative)* Diagnostic Procedure Only (Routine) - Closed Specialty Diagnoses / Procedures Referred By Link souza Referred To Contact [facility] Diagnoses Abnormal mammogram Procedures US BREAST LTD RIGHT US BREAST UNI REAL TIME WITH IMAGE LIMITED Leida Ruano APRN.CNP [address] [place] [address] [facility] [address] [place] [address] Referral ID Status Reason Start Date Expiration Date V isits Requested Visits Authorized [id number] Closed Auto-Generate d Referral 12/09/2023 01/07/2025 [address] [facility] for referral (narrative)* Diagnostic Procedure Only (Routine) - Pending Review Specialty Diagnoses / Procedures Referred By Link souza Referred To Contact [facility] Diagnoses Abnormal finding on breast imaging Procedures US BREAST LTD RIGHT US BREAST UNI REAL TIME WITH IMAGE LIMITED Troy Ledesma MD [address] [address] [facility] [address] [place] [address] Referral ID Status Reason Start Date Expiration Date Visits Requested Visits Authorized [id number] Pending Review Auto-Generat ed Referral 07/24/2024 02/22/2025 1 1 * Diagnostic Procedure Only (Routine) - Pending Review Specialty Diagnoses / Procedures Referred By Link souza Referred To Contact [facility] Diagnoses Abnormal finding on breast imaging Procedures CHICHO DIAGNOSTIC RIGHT DIAGNOSTIC MAMMOGRAPHY COMPUTER-AIDED DETCJ UNI Troy Ledesma MD [address] [place] [address] [facility] [address] [place] [address] Referral ID Status Reason Start Date Expiration Date Visits Requested Visits Authorized [id number] Pending Review Auto-Generat ed Referral 07/24/2024 02/22/2025 [address] [facility] for referral (narrative)* Diagnostic Procedure Only (Routine) - Closed Specialty Diagnoses / Procedures Referred By Link souza Referred To Contact [facility] Diagnoses Abnormal finding on breast imaging Procedures US BREAST LTD RIGHT US BREAST UNI REAL TIME WITH IMAGE LIMITED Troy Ledesma MD [address] [id number] [facility] [address] [place] [address] Referral ID Status Reason Start Date Expiration Date V isits Requested Visits Authorized [id number] Closed Auto-Generate d Referral 07/24/2024 02/22/2025 [address] [facility] for referral (narrative)* Diagnostic Procedure Only (Routine) - Closed Specialty Diagnoses / Procedures Referred By Link souza Referred To Contact [facility] Diagnoses Encounter for screening mammogram for breast cancer Well adult exam Procedures CHICHO SCREENING W ESEQUIEL SCREENING DIGITAL BREAST TOMOSYNTHESIS BI SCREENING MAMMOGRAPHY BI 2-VIEW BREAST INC CAD Leida Ruano APRN.PAINT DEPARTMENT SUPERVISOR [address] [place] [address] [facility] [address] [place] [address] Referral ID Status Reason Start Date Expiration Date V isits Requested Visits Authorized [id number] Closed Auto-Generate d Referral 10/14/2024 11/13/2025 1 1 [facility] Diagnostic Procedure Only (Routine) - New Request Specialty Diagnoses / Procedures Referred By Link souza Referred To Contact [facility] Diagnoses Abnormal mammogram Procedures CHICHO DIAGNOSTIC RIGHT DIAGNOSTIC MAMMOGRAPHY COMPUTER-AIDED DETCJ UNI Leida Ruano APRN.PAINT DEPARTMENT SUPERVISOR [address] [place] [address] [facility] [address] [place] [address] Referral ID Status Reason Start Date Expiration Date Visits Requested Visits Authorized [id number] New Request Auto-Generat ed Referral 11/04/2024 12/04/2025 1 1 * Diagnostic Procedure Only (Routine) - New Request Specialty Diagnoses / Procedures Referred By Link souza Referred To Contact [facility] Diagnoses Abnormal mammogram Procedures US BREAST LTD RIGHT US BREAST UNI REAL TIME WITH IMAGE LIMITED Leida Ruano APRN.PAINT DEPARTMENT SUPERVISOR [address] [place] [address] [facility] [address] [place] [address] Referral ID Status Reason Start Date Expiration Date Visits Requested Visits Authorized [id number] New Request Auto-Generat ed Referral 11/04/2024 12/04/2025 1 1 [facility] (n[facility]ative)No reason for referral information availableWACMC [facility] Work Phone: Reason for visit Narrative* Diagnostic Procedure Only (Routine) - Closed Specialty Diagnoses / Procedures Referred By Link t Referred To Contact [facility] Diagnoses Abnormal mammogram Procedures CHICHO DIAGNOSTIC RIGHT DIAGNOSTIC MAMMOGRAPHY COMPUTER-AIDED DETCJ [facility] Leida Ruano, DISTANCE LEARNING UNIT LEADER.PAINT DEPARTMENT SUPERVISOR [address] [place] [address] [facility] [address] [place] [address] Referral ID Status Reason Start Date Expiration Date V isits Requested Visits Authorized [id number] Closed Auto-Generate d Referral 12/09/2023 01/07/2025 [address] [facility] for visit Narrative* Diagnostic Procedure Only (Routine) - Closed Specialty Diagnoses / Procedures Referred By Conteitan t Referred To Contact [facility] Diagnoses Abnormal finding on breast imaging Procedures CHIHCO DIAGNOSTIC RIGHT DIAGNOSTIC MAMMOGRAPHY COMPUTER-AIDED DETCJ [facility] Troy Ledesma MD [address] [address] [facility] [address] [place] [address] Referral ID Status Reason Start Date Expiration Date V isits Requested Visits Authorized [id number] Closed Auto-Generate d Referral 07/24/2024 02/22/2025 [address] [facility] for visit Narrative* Diagnostic Procedure Only (Routine) - Closed Specialty Diagnoses / Procedures Referred By Link souza Referred To Contact [facility] Diagnoses Encounter for screening mammogram for breast cancer Well adult exam Procedures CHICHO SCREENING W ESEQUIEL SCREENING DIGITAL BREAST TOMOSYNTHESIS BI SCREENING MAMMOGRAPHY BI 2-VIEW BREAST INC CAD Leida Ruano, DISTANCE LEARNING UNIT LEADER.PAINT DEPARTMENT SUPERVISOR [address] [place] [address] [facility] [address] [place] [address] Referral ID Status Reason Start Date Expiration Date V isits Requested Visits Authorized [id number] Closed Auto-Generate d Referral 10/14/2024 11/13/2025 1 1 [facility] Advance Directives No Advanced Directives Records FoundDocuments on File Type Date Recorded Patient Biochemist Expl anation Advance Directive(s) 12/14/2020 9:30 AM Advance Directive(s) 12/04/2020 12:35 PM Advance Directive Response Recorded Date/ Time Living Will No October 04 8:29am Power of Web Administrator No October 04, 2019 8:29am Reason for Referral Specialty Diagnoses / Procedures Referred By Conteitan t Referred To Contact Dermatology Diagnoses Rash Procedures CONSULT TO DERMATOLOGY Leida Ruano APRN.PAINT DEPARTMENT SUPERVISOR [address] [place] [address] Referral ID Status Reason Start Date Expiration Date Visits Requested Visits Authorized [id number] Ref Not Required PCP Requested Referral 07/08/2023 07/07/2024 1 1 Specialty Diagnoses / Procedures Referred By Christyac t Referred To Contact Rheumatology Diagnoses Cutaneous lupus erythematosus Procedures CONSULT TO RHEUM/IMMUN DISEASE OFFICE/OUTPATIENT [facility] 60 MINUTES Leida Ruano, DEENA.PAINT DEPARTMENT SUPERVISOR [address] [place] [address] Referral ID Status Reason Start Date Expiration Date Visits Requested Visits Authorized [id number] Authorized PCP Requested Referral 4 10/14/2025 1 1 Specialty Diagnoses / Procedures Referred By Link t Referred To Contact [facility] Diagnoses Encounter for screening mammogram for breast cancer Well adult exam Procedures CHICHO SCREENING W ESEQUIEL SCREENING DIGITAL BREAST TOMOSYNTHESIS BI SCREENING MAMMOGRAPHY BI 2-VIEW BREAST INC CAD Leida Ruano, DISTANCE LEARNING UNIT LEADER.PAINT DEPARTMENT SUPERVISOR [address] [place] [address] [facility] [address] [place] [address] Referral ID Status Reason Start Date Expiration Date Visits Requested Visits Authorized [id number] Authorized Auto-Generat ed Referral 4 11/13/2025 1 1 Chief Complaint and Reason for Visit Chief Complaint SKIN Chief Complaint Admit Date [facility] PCP Oct 10:39am PAIN- COPY PCP February 23, 2025 10: 26am Chief Complaint Admit Date PAIN- COPY PCP February 23, 2025 10: 26am PAIN- COPY PCP May 16, 2025 7:42 am Summary Purpose Family History No Family History Records FoundNo Family History Records Found Additional Source Comments Source Comments (unrecognize d section and content) In the event this informatio n is protected by the Federal Confidentiality of Alcohol and Drug Abuse Patient Records regulations: The Federal rules restrict any use of the information to criminally investigate or prosecute any alcohol or drug abuse patient.[facility] the event this information is protected by the Federal Confidentiality of Alcohol and Drug Abuse Patient Records regulations: The Federal rules restrict any use of the information to criminally investigate or prosecute any alcohol or drug abuse patient.[facility] Health[facility] the event this information is protected by the Federal Confidentiality of Alcohol and Drug Abuse Patient Records regulations: The Federal rules restrict any use of the information to criminally investigate or prosecute any alcohol or drug abuse patient.[facility] the event this information is protected by the Federal Confidentiality of Alcohol and Drug Abuse Patient Records regulations: The Federal rules restrict any use of the information to criminally investigate or prosecute any alcohol or drug abuse patient.[facility] HealthIn the event this information is protected by the Federal Confidentiality of Alcohol and Drug Abuse Patient Records regulations: The Federal rules restrict any use of the information to criminally investigate or prosecute any alcohol or drug abuse patient.[facility] HealthIn the event this information is protected by the Federal Confidentiality of Alcohol and Drug Abuse Patient Records regulations: The Federal rules restrict any use of the information to criminally investigate or prosecute any alcohol or drug abuse patient.[facility] HealthIn the event this information is protected by the Federal Confidentiality of Alcohol and Drug Abuse Patient Records regulations: The Federal rules restrict any use of the information to criminally investigate or prosecute any alcohol or drug abuse patient.[facility] Health[facility] the event this information is protected by the Federal Confidentiality of Alcohol and Drug Abuse Patient Records regulations: The Federal rules restrict any use of the information to criminally investigate or prosecute any alcohol or drug abuse patient.[facility] HealthIn the event this information is protected by the Federal Confidentiality of Alcohol and Drug Abuse Patient Records regulations: The Federal rules restrict any use of the information to criminally investigate or prosecute any alcohol or drug abuse patient.[facility] HealthIn the event this information is protected by the Federal Confidentiality of Alcohol and Drug Abuse Patient Records regulations: The Federal rules restrict any use of the information to criminally investigate or prosecute any alcohol or drug abuse patient.[facility] HealthIn the event this information is protected by the Federal Confidentiality of Alcohol and Drug Abuse Patient Records regulations: The Federal rules restrict any use of the information to criminally investigate or prosecute any alcohol or drug abuse patient.[facility] HealthIn the event this information is protected by the Federal Confidentiality of Alcohol and Drug Abuse Patient Records regulations: The Federal rules restrict any use of the information to criminally investigate or prosecute any alcohol or drug abuse patient.[facility] HealthIn the event this information is protected by the Federal Confidentiality of Alcohol and Drug Abuse Patient Records regulations: The Federal rules restrict any use of the information to criminally investigate or prosecute any alcohol or drug abuse patient.[facility] HealthIn the event this information is protected by the Federal Confidentiality of Alcohol and Drug Abuse Patient Records regulations: The Federal rules restrict any use of the information to criminally investigate or prosecute any alcohol or drug abuse patient.[facility] HealthIn the event this information is protected by the Federal Confidentiality of Alcohol and Drug Abuse Patient Records regulations: The Federal rules restrict any use of the information to criminally investigate or prosecute any alcohol or drug abuse patient.[facility] HealthIn the event this information is protected by the Federal Confidentiality of Alcohol and Drug Abuse Patient Records regulations: The Federal rules restrict any use of the information to criminally investigate or prosecute any alcohol or drug abuse patient.[facility] HealthIn the event this information is protected by the Federal Confidentiality of Alcohol and Drug Abuse Patient Records regulations: The Federal rules restrict any use of the information to criminally investigate or prosecute any alcohol or drug abuse patient.[facility] HealthIn the event this information is protected by the Federal Confidentiality of Alcohol and Drug Abuse Patient Records regulations: The Federal rules restrict any use of the information to criminally investigate or prosecute any alcohol or drug abuse patient.[facility] Teams (unrecognized sec tion and content) Bulk Sausage Casing Tier Off Relationship Specialty Start Date End Date Charanjit Matson, DO [address] [place] [address] PCP - General Family Practice 05/09/13 Bulk Sausage Casing Tier Off Relationship Specialty Start Date End Date Charanjit Matson DO [address] [place] [address] PCP - General Family Medicine 05/09/13 Bulk Sausage Casing Tier Off Relationship Specialty Start Date End Date Charanjit Matson DO [address] [place] [address] PCP - General Family Medicine 05/09/13 Bulk Sausage Casing Tier Off Relationship Specialty Start Date End Date Charanjit Matson DO [address] [place] [address] PCP - General Family Medicine 05/09/13 Bulk Sausage Casing Tier Off Relationship Specialty Start Date End Date Charanjit Matson DO [address] [place] [address] PCP - General Family Medicine 05/09/13 Bulk Sausage Casing Tier Off Relationship Specialty Start Date End Date Charanjit Matson DO [address] [place] [address] PCP - General Family Medicine 05/09/13 Bulk Sausage Casing Tier Off Relationship Specialty Start Date End Date Charanjit Matson DO [address] [place] [address] PCP - General Family Medicine 05/09/13 Bulk Sausage Casing Tier Off Relationship Specialty Start Date End Date Charanjit Matson DO [address] [place] [address] PCP - General Family Medicine 05/09/13 Bulk Sausage Casing Tier Off Relationship Specialty Start Date End Date Charanjit Matson DO [address] [place] [address] PCP - General Family Medicine 05/09/13 Bulk Sausage Casing Tier Off Relationship Specialty Start Date End Date Charanjit Matson DO [address] [place] [address] PCP - General Family Medicine 05/09/13 Team Status: Active Member Role Status Dates Charanjit Matson [facility] Family Provider Active Dr. Charanjit Matson DO Primary Care Provider Active Team Status: Inactive Member Role Status Dates Dr. Charanjit Matson DO Primary Care Provider Active Dr. Arsenio Coto MD Attending Provider, Referring Melba taylor Active Bulk Sausage Casing Tier Off Relationship Specialty Start Date End Date Charanjit Matson DO [address] [place] [address] PCP - General Family Medicine 05/09/13 Bulk Sausage Casing Tier Off Relationship Specialty Start Date End Date Charanjit Matson DO [address] [place] [address] PCP - General Family Medicine 05/09/13 Bulk Sausage Casing Tier Off Relationship Specialty Start Date End Date Charanjit Matson DO [address] [place] [address] PCP - General Family Medicine 05/09/13 Bulk Sausage Casing Tier Off Relationship Specialty Start Date End Date Charanjit Matson DO [address] [place] [address] PCP - General Family Medicine 05/09/13 Bulk Sausage Casing Tier Off Relationship Specialty Start Date End Date Charanjit Matson DO [address] [place] [address] PCP - General Family Medicine 05/09/13 Nayeli White, DISTANCE LEARNING UNIT LEADER.PAINT DEPARTMENT SUPERVISOR [address] [place] [address] [facility] Family [facility] 11/06/24 Leida Ruano, DISTANCE LEARNING UNIT LEADER.PAINT DEPARTMENT SUPERVISOR [address] [place] [address] [facility] 11/06/24 Team Status: Inactive Member Role Status Dates Dr. Charanjit Matson DO Primary Care Provider Active Start: November 07, 2024 End: November 07, 2024 Dr. Rosa M Hampton MD Attending Provider Active Start: November 07, 2024 End: November 07, 2024 Dr. Rosa M Hampton MD Referring Provider Active Start: November 07, 2024 End: November 07, 2024 Team Status: Inactive Member Role Status Dates Dr. Charanjit Matson DO Primary Care Provider Active Start: February 23, 2025 End: February 23, 2025 Dr. Rosa M Hampton MD Attending Provider Active Start: February 23, 2025 End: February 23, 2025 Dr. Rosa M Hampton MD Referring Provider Active Start: February 23, 2025 End: February 23, 2025 Team Status: Inactive Member Role Status Dates Dr. Charanjit Matson DO Primary Care Provider Active Start: May 16, 2025 End: May 16, 2025 Dr. Rosa M Hampton MD Attending Provider Active Start: May 16, 2025 End: May 16, 2025 Dr. Rosa M Hampton MD Referring Provider Active Start: May 16, 2025 End: May 16, 2025 Reason for Visit (unrecogniz ed section and content) Reason Onset Date Comments Yearly Exam Immunizations 12/15/2022 Flu vaccination Reason Comments Results Reason Comments Orders Reason [...] BREAST UNI REAL TIME WITH IMAGE LIMITED Leida Ruano APRN.PAINT DEPARTMENT SUPERVISOR [address] [place] [address] [facility] [address] [place] [address] Referral ID Status Reason Start Date Expiration Date V isits Requested Visits Authorized [id number] Closed Auto-Generate d Referral 12/09/2023 01/07/2025 1 1 Reason Comments Opened In Error Reason Comments Consult Right breast nodule/ abnormal mammo & US Specialty Diagnoses / Procedures Referred By Contac t Referred To Contact [facility] Diagnoses Abnormal finding on breast imaging Procedures US BREAST LTD RIGHT US BREAST UNI REAL TIME WITH IMAGE LIMITED Troy Ledesma MD [address] [address] [facility] [address] [place] [address] Referral ID Status Reason Start Date Expiration Date V isits Requested Visits Authorized [id number] Closed Auto-Generate d Referral 07/24/2024 02/22/2025 1 1 Reason Comments Consult Reason Comments 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 [employer] provides no warranty or guarantee of the accuracy or completeness of information in this document.
[2025-11-06 10:34] LABS: Hematocrit 45.5 % (37-47); Hemoglobin 15.4 g/dL (12.0-15.0); Immature Granulocytes Count 0.030 X10^3/uL (0.0-0.0); Mean Corp Hgb Conc 33.8 g/dL (32-36); Mean Corpuscular Volume 93.2 fL (81-99); Mean Platelet Vol. 10.4 fl (6.2-12.0); NRBC Flagged by Analyzer 0 % (0-5); Platelet Count 185 K/mm3 (150-450); RBC Distribution Width CV 13.1 % (11.6-14.6); RBC Distribution Width SD 44.7 fl (35.1-43.9); Red Blood Count 4.88 M/mm3 (4.2-5.4); White Blood Count 8.6 K/mm3 (4.4-11.0)
[2025-11-06 10:56] LABS: AST(SGOT) 23 U/L (<=31); Alanine Aminotransfer ALT/SGPT 20 U/L (<=34); Albumin, Serum 4.5 g/dL (3.4-4.8); Alkaline Phosphatase 83 U/L (35-104); Anion Gap 12 (5-15); BUN 28 mg/dL (4-19); BUN/Creat Ratio 38.0 RATIO (10-20); Calcium,Total 9.7 mg/dL (7.6-11.0); Carbon Dioxide 23.6 mmol/L (21.0-32.0); Chloride 107 mmol/L (98-108); Globulin 2.8 g/dL (2.2-4.2); Glucose 112 mg/dL (70-99); Potassium 4.2 mmol/L (3.3-5.1)
== END | disposition home or self-care (01) ==
LOC: MTLAB 07:13
PROVIDERS: PCP Student in an Organized Health Care Education/Training Program; Referring Provider Internal Medicine Rheumatology; Visit Provider Internal Medicine Rheumatology
DX: M06.4 Inflammatory polyarthropathy (principal); Z79.899 Other long term (current) drug therapy
CPT/HCPCS: 36415; 80053; 85025